=== PATIENT | male | born 1950 | race Caucasian/White ===

== ENCOUNTER 2019-12-28 09:20 | Outpatient (CLI) | payer MEDICARE, SELFPAY ==
--- NOTE | ~2019-12-28 | XR_ITS ---
XR abdomen obstructive series 12/28/2019 09:46 Indication: Upper abdominal distention. Procedure: Supine and upright views of abdomen Comparison: No prior studies for comparison. Findings: Bowel gas pattern is nonobstructive. Moderate colonic fecal loading. There is an aortic end oluminal stent. There is an aortic aneurysm. Lung bases unremarkable. There are cholecystectomy clips . Impression: 1: Nonobstructive bowel gas pattern. Reviewed, dictated and finalized at location A. Impression: 1: Nonobstructive bowel gas pattern.
== END 2019-12-28 09:21 | disposition home or self-care (01) ==
PROVIDERS: PCP Family Medicine Adolescent Medicine; Visit Provider Family Medicine Adolescent Medicine
DX: K56.0 Paralytic ileus (principal)
CPT/HCPCS: 74019

== ENCOUNTER 2020-02-09 08:35 | Outpatient (CLI) | payer MEDICARE, SELFPAY ==
--- NOTE | ~2020-02-09 | CT_ITS ---
EXAMINATION: CTA abdomen pelvis DATE: 02/09/2020 10:17 INDICATION: Abdominal aortic aneurysm status post repair. TECHNIQUE: Computed tomographic angiography (CTA) of the abdomen and pelvis was performed without and with 100 mL Omnipaque-350 intravenous contrast. Automated exposure control and iterative reconstruct ion technique were employed. The dose-length product was 2363.66 mGy-cm. Maximum intensity projection 3D-reconstructions of the aorta and other arteries were constructed by the technologist on a [employer] workstation. COMPARISON: CT abdomen and pelvis 12/17/2018 FINDINGS: The visualized portions of the lung bases demonstrate mild atelectasis. No pleural effusion . The heart size is normal. There are coronary artery calcifications. No pericardial effusion. The li mesha is normal. There are changes of cholecystectomy. The spleen, pancreas, and adrenal glands are nor mal. There is mild atrophy of the kidneys, worst at the lower poles. There are cysts in the kidneys m easuring up to 1.6 cm on the left. There is a 7.4 x 6.8 cm fusiform infrarenal aortic aneurysm with s tent graft in expected position. There are small areas of contrast enhancement in the aneurysm sac on delayed phase images, likely from the lumbar arteries. There is mild stenosis of celiac axis second gray to median arcuate ligament compression. There is no significant stenosis of the superior mesenter ic artery or renal arteries. There is coil embolization of inferior mesenteric artery. 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 There is diverticulosis of the colon without evidence of diverticulitis. There are no dilated loops of bowel. There are bilateral inguinal hernia s containing fat. There are no pathologically enlarged lymph nodes. There is no free intraperitoneal fluid. IMPRESSION: 1. 7.4 cm fusiform infrarenal aortic aneurysm, stable in size with type II endoleak. Reviewed, dictated and finalized at location A. IMPRESSION: 1. 7.4 cm fusiform infrarenal aortic aneurysm, stable in size with type II endo leak.
[2020-02-09 09:51] LABS: Estimated Glomerular Filt Rate > 60
== END 2020-02-09 08:36 | disposition home or self-care (01) ==
LOC: ANHIMG 08:45
PROVIDERS: PCP Family Medicine Adolescent Medicine
DX: I71.4 Abdominal aortic aneurysm, without rupture (principal)
CPT/HCPCS: 36415; 74174; Q9967

== ENCOUNTER 2020-04-25 11:49 | Outpatient (CLI) | payer MEDICARE, SELFPAY ==
[2020-04-25 12:42] LABS: Alanine Aminotransferase 24 U/L (4-50); Albumin Level 4.4 g/dL (3.5-5.1); Alkaline Phosphatase 68 U/L (38-126); Anion Gap 9 mmol/L (8-16); Aspartate Amino Transferase 26 U/L (17-59); Bilirubin,Total 0.2 mg/dL (0.2-1.3); Blood Urea Nitrogen 19 mg/dL (9-20); CRP 0.5 mg/dL (<1.0); Calcium 9.7 mg/dL (8.4-10.2); Carbon Dioxide 25 mmol/L (22-30); Chloride 101 mmol/L (98-107); Cholesterol 274 mg/dL (0-200); Creatine Kinase 103 U/L (55-170); Estimated Glomerular Filt Rate > 60; Glucose 116 mg/dL (75-110); HDL Direct 38 mg/dL; Potassium 4.6 mmol/L (3.4-5.0); Sodium 135 mmol/L (137-145); Triglycerides 371 mg/dL (<150)
[2020-04-25 12:51] LABS: LDL Cholesterol Direct 172 mg/dL
[2020-04-25 13:09] LABS: Prostate Specific Antigen 3.6 ng/mL (< OR = 4.0)
[2020-04-25 13:10] LABS: Erythrocyte Sedimentation Rate 28 mm/hr (0-20)
== END 2020-04-25 11:50 | disposition home or self-care (01) ==
PROVIDERS: PCP Family Medicine Adolescent Medicine; Visit Provider Family Medicine Adolescent Medicine
DX: E78.00 Pure hypercholesterolemia, unspecified (principal); E11.42 Type 2 diabetes mellitus with diabetic polyneuropathy; I10 Essential (primary) hypertension; M79.10 Myalgia, unspecified site; Z12.5 Encounter for screening for malignant neoplasm of prostate
CPT/HCPCS: 36415; 80053; 80061; 82550; 83036; 84153; 85652; 86140; G0103

== ENCOUNTER 2020-06-29 12:04 | Outpatient (CLI) | payer MEDICARE, SELFPAY ==
[2020-06-29 12:53] LABS: Hematocrit 39.5 % (42.0-52.0); Hemoglobin 12.9 g/dL (14.0-18.0); Mean Corpuscular HGB Conc 32.7 g/dl (32-36); Mean Corpuscular Volume 91.9 fl (80-100); Mean Platelet Volume 10.5 fl (7.4-10.4); Platelet Count Result 244 k/mm3 (150-375); Red Cell Distribution Width 14.1 % (11.5-14.5); White Blood Count 6.2 K/mm3 (4.5-10.0)
== END 2020-06-29 12:05 | disposition home or self-care (01) ==
LOC: ANHLAB 12:07
PROVIDERS: PCP Family Medicine Adolescent Medicine; Visit Provider Physician Assistant
DX: K92.1 Melena (principal)
CPT/HCPCS: 36415; 85027

== ENCOUNTER 2020-07-24 06:55 | Outpatient (CLI) | payer MEDICARE, SELFPAY ==
[2020-07-24 07:32] LABS: Cholesterol 201 mg/dL (0-200); HDL Direct 38 mg/dL; Triglycerides 357 mg/dL (<150)
[2020-07-24 07:43] LABS: LDL Cholesterol Direct 121 mg/dL
== END 2020-07-24 06:56 | disposition home or self-care (01) ==
PROVIDERS: PCP Family Medicine Adolescent Medicine; Visit Provider Internal Medicine Cardiovascular Disease
DX: E78.5 Hyperlipidemia, unspecified (principal)
CPT/HCPCS: 36415; 80061

== ENCOUNTER 2020-08-15 08:18 | Outpatient (CLI) | payer MEDICARE, SELFPAY ==
--- NOTE | ~2020-08-15 | CT_ITS ---
EXAMINATION: CTA abdomen pelvis DATE: 08/15/2020 08:59 INDICATION: Abdominal aortic aneurysm without rupture TECHNIQUE: Computed tomographic angiography (CTA) of the abdomen and pelvis was performed without and with 100 mL Omnipaque-350 intravenous contrast. Additional 3D reconstructions utilizing rotating max imum intensity projection (MIP) were performed. Automated exposure control and iterative reconstructi on technique were employed. The dose-length product was 1703.83 mGy-cm. COMPARISON: 02/09/2020 FINDINGS: No interval change since 12/09/2017 in a few likely benign 5 mm smaller pulmonary nodules in the bilat eral lower lobes. Heart size is normal. Atherosclerotic coronary artery calcification. No pericardial or pleural effusion. Diffuse hepatic steatosis. Cholecystectomy clips at the gallbladder fossa. Sple en, pancreas, bilateral adrenal glands are normal. 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 Bilateral renal cysts the largest on the left measuring up to 1.5 cm. There is also a 10 mm hyperdense proteinaceous/hemorrhagic cyst in the left kidney. 1 mm nonobstructing right renal stone. No significant interval change in a fusiform infrarenal abdominal aortic aneurysm measuring up to 7.3 x 6.8 cm with unchanged endoluminal stent graft beginning at the level of the bilateral main renal a rteries and extending to the bilateral common iliac arteries. No endoleak identified during arterial phase. Delayed images were not obtained. Again seen is mild stenosis at the origin of the celiac axis secondary to mild atherosclerotic calcification and median arcuate ligament compression. The superio r mesenteric artery is patent. Embolization coils are seen in the at the origin of the inferior mesen teric artery which is patent and opacified with contrast distal to the embolization coils likely due to collateral resupply. Unchanged small saccular aneurysm at the bifurcation of the left common iliac artery located distal to the stent. Normal appendix. There is moderate colonic diverticulosis with a sigmoid predominance. There is no a djacent inflammatory change to suggest diverticulitis. No bowel obstruction. Bladder is normal. Small bilateral fat-containing inguinal hernias. No pathologically enlarged abdominal or pelvic lymphadeno annamarie. No free intraperitoneal gas or fluid. Severe lower lumbar spondylosis. IMPRESSION: 1. No interval change in a 7.3 cm stented fusiform infrarenal abdominal aortic aneurysm. 2. Stable small saccular aneurysm of the left common iliac artery. 3. Nonobstructing 1 mm right renal stone. 4. Diverticulosis. 5. Small fat-containing bilateral inguinal hernias. Reviewed, dictated and finalized at location B. EKEEPER
[2020-08-15 11:24] LABS: Estimated Glomerular Filt Rate > 60
== END 2020-08-15 08:19 | disposition home or self-care (01) ==
PROVIDERS: PCP Family Medicine Adolescent Medicine
DX: I71.4 Abdominal aortic aneurysm, without rupture (principal); T82.3 Mechanical complication of other vascular grafts; N20.0 Calculus of kidney; K57.90 Diverticulosis of intestine, part unspecified, without perforation or abscess without bleeding; K40.20 Bilateral inguinal hernia, without obstruction or gangrene, not specified as recurrent
CPT/HCPCS: 74174; Q9967

== ENCOUNTER 2020-11-07 07:01 | Outpatient (CLI) | payer MEDICARE, SELFPAY ==
[2020-11-07 08:00] LABS: Cholesterol 296 mg/dL (0-200); HDL Direct 37 mg/dL; Triglycerides 445 mg/dL (<150)
[2020-11-07 08:12] LABS: LDL Cholesterol Direct 165 mg/dL
[2020-11-07 12:05] LABS: Creatinine Urine 314.6 mg/dL
[2020-11-07 12:19] LABS: MALB Creatinine Ratio 123.3 mg/g (0-30)
== END 2020-11-07 07:02 | disposition home or self-care (01) ==
PROVIDERS: PCP Family Medicine Adolescent Medicine; Visit Provider Internal Medicine Cardiovascular Disease
DX: E11.69 Type 2 diabetes mellitus with other specified complication (principal); E78.5 Hyperlipidemia, unspecified
CPT/HCPCS: 36415; 80061; 82043

== ENCOUNTER 2021-02-26 08:42 | Outpatient (CLI) | payer MEDICARE, SELFPAY ==
--- NOTE | ~2021-02-26 | XR_ITS ---
EXAMINATION: XR foot LT min 3V DATE: 02/26/2021 09:10 INDICATION: Pain at the left first metatarsophalangeal joint TECHNIQUE: Dorsoplantar, two oblique and lateral views of the left foot were obtained. COMPARISON: None. FINDINGS: Alignment is normal. No fracture. Mild osteoarthritis at the first metatarsophalangeal joint and at s everal predominantly distal interphalangeal joints. Focal cortical irregularity at the lateral tubero sity at the base of the fifth metatarsal which could represent a small chronic erosion with corticate d margins and overhanging edges as could be seen with gout. Alternatively this could represent sequel a of old trauma or surgery. Small plantar calcaneal spur. Soft tissues are unremarkable. IMPRESSION: 1. Mild osteoarthritis at the first metatarsophalangeal and several predominantly distal interphalang eal joints. 2. Focal cortical irregularity to the lateral tuberosity at the fifth metatarsal. Differential would include small erosion such as in the setting of gout or sequela of prior trauma or surgery. Reviewed, dictated and finalized at location A. IMPRESSION: 1. Mild osteoarthritis at the first metatarsophalangeal and several predominant ly distal interphalangeal joints. 2. Focal cortical irregularity to the lateral tuberosity at the fifth metatarsa l. Differential would include small erosion such as in the setting of gout or s equela of prior trauma or surgery.
== END 2021-02-26 08:43 | disposition home or self-care (01) ==
PROVIDERS: PCP Family Medicine Adolescent Medicine; Visit Provider Physician Assistant
DX: M79.675 Pain in left toe(s) (principal); M19.072 Primary osteoarthritis, left ankle and foot
CPT/HCPCS: 73630

== ENCOUNTER 2021-04-04 01:21 | Day surgery (SDC) | payer MEDICARE, SELFPAY ==
[2021-03-21 15:29] VITALS: BMI 27.1
[2021-04-04 07:50] VITALS: BP 139/75; PULSE 57; RESP 16; TEMP 36.1; O2SAT 100; BMI 25.8
--- NOTE | 2021-04-04 08:00 | PM.HPGS ---
History of Present Illness History of Present Illness Consent: Risks, benefits, and alternatives have been discussed and questions answered. Patient agrees to proceed with procedure. Chief complaint: melena, diarrhea Narrative: Zeke Elizondo is a 70 year old male with chronic diarrhea. Also he has had black stools lately. He does take diclofenac and aspirin Review of Systems Review of Systems: All systems reviewed & are unremarkable except as noted in HPI and below PMFSH Past Medical History Medical History AAA (abdominal aortic aneurysm) Angiokeratoma of scalp Arthritis Back pain Hearing loss Hyperlipidemia, unspecified Hypertension Sinus abscess Type 2 diabetes mellitus with hyperglycemia, without long-term current use of insulin Surgical History Surgical History H/O abdominal aortic aneurysm repair (~10/05/12) History of cholecystectomy (~03/02/18) History of cholecystectomy History of meniscectomy of left knee (~08/20/17) History of total knee replacement (TKR) History of total left knee replacement (~10/07/18) Presence of left artificial knee joint (~06/17/14) Family History Family History Mother Diabetes mellitus Family history of cardiovascular disease Hypertension Parkinsonian syndrome Other Cancer Cerebrovascular accident Depression Obesity Psychiatric disorder SOB (shortness of breath) Social History Social History Smoking packs per day: 1.5 Smoking cigarettes per day: 30.0 Years smoked: 30 Smoking pack-years: 45.00 Smoking status: Former smoker Tobacco type: cigarettes Smoking end date: 09/01/98 Alcohol intake: never Substance use: never Substance use type: does not use Living arrangements: with family Spiritual care concerns: No Meds Home Medications and Allergies Home Medications Medication Instructions Recorded Confirmed Type allopurinol 300 mg tablet 300 mg PO DAILY 10/06/19 04/04/21 History amlodipine 10 mg tablet 10 mg PO DAILY 10/06/19 04/04/21 History aspirin 81 mg tablet,delayed 81 mg PO DAILY 10/06/19 04/04/21 History release diclofenac sodium 75 mg 75 mg PO BID 10/06/19 04/04/21 History tablet,delayed release indapamide 2.5 mg tablet 2.5 mg PO DAILY 10/06/19 04/04/21 History omeprazole 20 mg capsule,delayed 20 mg PO DAILY 10/06/19 04/04/21 History release sildenafil 100 mg tablet 100 mg PO DAILY PRN 10/06/19 04/04/21 History lisinopril 20 mg tablet 20 mg PO BID tablet 11/30/19 04/04/21 History nitroglycerin 0.4 mg sublingual 0.4 mg SUBLINGUAL Q5M PRN 03/30/20 04/04/21 History tablet cetirizine 10 mg capsule 10 mg PO DAILY cap 05/10/20 04/04/21 History guaifenesin 400 mg tablet 400 mg PO BID PRN 05/10/20 04/04/21 History evolocumab 140 mg/mL subcutaneous 140 mg SUBCUT [id number] 01/15/21 04/04/21 History pen injector glimepiride 2 mg tablet 2 mg PO BID 90 Days #180 tablet 02/02/21 04/04/21 Rx metformin 1,000 mg tablet See Rx Instructions .ROUTE 02/12/21 04/04/21 Rx .COMPLEX #180 tablet hydralazine 25 mg PO TID 03/21/21 04/04/21 History melatonin 5 mg PO HS 03/21/21 04/04/21 History multivitamin [One A Day] 1 tablet PO DAILY 03/21/21 04/04/21 History Allergies Allergy/AdvReac Type Severity Reaction Status Date / Time Bszcifk-Tni-Vgx Reductase Allergy Intermediate Cramping Verified 04/04/21 07:48 Inhibitor of the Muscles Vital Signs Vital Signs - 24 hr 04/04/21 07:50 Temperature 36.1 C L Pulse Rate 57 L Respiratory Rate 16 Blood Pressure 139/75 Pulse Oximetry 100 Exam Resp: Auscultation: clear to auscultation bilaterally Cardio: Rate: regular rate Rhythm: regular rhythm GI: GI Palp: Yes Soft to palpation and No Tenderness to palpation present (GI) Assessment and Plan
[2021-04-04 08:01] LABS: Glucose Point of Care 162 mg/dl (65-105)
[2021-04-04] MEDS: LACTATED RINGERS 1,000 ML 150 ML IV CONT (08:06)
--- NOTE | 2021-04-04 08:09 | WPDANESEPPF ---
Anes - Initial Pre Proc Eval Procedure: Operation Date: 04/04/21 08:30 Proposed Procedures p Esophagogastroduodenoscopy & Colonoscopy - Luan Rausch MD Date/Time: 04/04/21 08:09 Surgeon: Luan Rausch MD Pre Op Diagnosis: melena, diarrhea Patient Data Age: 70 Gender: M Height: 1.83 m Weight: 86.5 kg Last Vital Signs Temp 36.1 C L 04/04/21 07:50 Pulse 57 L 04/04/21 07:50 Resp 16 04/04/21 07:50 BP 139/75 04/04/21 07:50 Pulse Ox 100 04/04/21 07:50 Allergies Allergy/AdvReac Type Severity Reaction Status Date / Time [id number]-[id number]-Idd Reductase Allergy Intermediate Cramping Verified 04/04/21 07:48 Inhibitor of the Muscles Home Medications Medication Instructions Recorded Confirmed Type allopurinol 300 mg tablet 300 mg PO DAILY 10/06/19 04/04/21 History amlodipine 10 mg tablet 10 mg PO DAILY 10/06/19 04/04/21 History aspirin 81 mg tablet,delayed 81 mg PO DAILY 10/06/19 04/04/21 History release diclofenac sodium 75 mg 75 mg PO BID 10/06/19 04/04/21 History tablet,delayed release indapamide 2.5 mg tablet 2.5 mg PO DAILY 10/06/19 04/04/21 History omeprazole 20 mg capsule,delayed 20 mg PO DAILY 10/06/19 04/04/21 History release sildenafil 100 mg tablet 100 mg PO DAILY PRN 10/06/19 04/04/21 History lisinopril 20 mg tablet 20 mg PO BID tablet 11/30/19 04/04/21 History nitroglycerin 0.4 mg sublingual 0.4 mg SUBLINGUAL Q5M PRN 03/30/20 04/04/21 History tablet cetirizine 10 mg capsule 10 mg PO DAILY cap 05/10/20 04/04/21 History guaifenesin 400 mg tablet 400 mg PO BID PRN 05/10/20 04/04/21 History evolocumab 140 mg/mL subcutaneous 140 mg SUBCUT [id number] 01/15/21 04/04/21 History pen injector glimepiride 2 mg tablet 2 mg PO BID 90 Days #180 tablet 02/02/21 04/04/21 Rx metformin 1,000 mg tablet See Rx Instructions .ROUTE 02/12/21 04/04/21 Rx .COMPLEX #180 tablet hydralazine 25 mg PO TID 03/21/21 04/04/21 History melatonin 5 mg PO HS 03/21/21 04/04/21 History multivitamin [One A Day] 1 tablet PO DAILY 03/21/21 04/04/21 History Laboratory Tests 04/04/21 07:56 POC Capillary Glucose 162 mg/dl H mg/dl (65-105) Patient hx anesthesia problems: none Family hx anesthesia problems: none [facility] Past Medical History Medical History AAA (abdominal aortic aneurysm) Angiokeratoma of scalp Arthritis Back pain Hearing loss Hyperlipidemia, unspecified Hypertension Sinus abscess Type 2 diabetes mellitus with hyperglycemia, without long-term current use of insulin Surgical History Surgical History H/O abdominal aortic aneurysm repair (~10/05/12) History of cholecystectomy (~03/02/18) History of cholecystectomy History of meniscectomy of left knee (~08/20/17) History of total knee replacement (TKR) History of total left knee replacement (~10/07/18) Presence of left artificial knee joint (~06/17/14) Family History Family History Mother Diabetes mellitus Family history of cardiovascular disease Hypertension Parkinsonian syndrome Other Cancer Cerebrovascular accident Depression Obesity Psychiatric disorder SOB (shortness of breath) Social History Social History Smoking packs per day: 1.5 Smoking cigarettes per day: 30.0 Years smoked: 30 Smoking pack-years: 45.00 Smoking status: Former smoker Tobacco type: cigarettes Smoking end date: 09/01/98 Alcohol intake: never Substance use: never Substance use type: does not use Living arrangements: with family Spiritual care concerns: No Anes - Eval Final PreProcedure Day of Procedure 04/04/21 08:09 Patient weight: normal Heart: regular rate and rhythm Lungs: clear to auscultation and normal air movement Airway: Mallampati scale class II Neurological: chicho
[2021-04-04] MEDS: BENZOCAINE (*SP) 60 ML SPRAY CAN (HURRICAINE) 1 SPRAY MUCOUS MEM (08:51)
[2021-04-04 09:15] VITALS: BP 118/59; PULSE 55; RESP 20; O2SAT 98
[2021-04-04 09:25] VITALS: BP 130/82; PULSE 60; RESP 18; O2SAT 99
[2021-04-04 09:35] VITALS: BP 134/80; PULSE 62; RESP 20; O2SAT 99
== END 2021-04-04 09:45 | disposition home or self-care (01) ==
PROVIDERS: PCP Family Medicine Adolescent Medicine; Visit Provider Internal Medicine Gastroenterology
PROC: 0DJ08ZZ Inspection of Upper Intestinal Tract, Via Natural or Artificial Opening Endoscopic (ICD-10-PCS; CPT 43235; principal; 2021-04-04 08:30)
DX: R19.7 Diarrhea, unspecified (principal); K92.1 Melena; K57.30 Diverticulosis of large intestine without perforation or abscess without bleeding; E78.5 Hyperlipidemia, unspecified; I10 Essential (primary) hypertension; E11.9 Type 2 diabetes mellitus without complications; Z87.891 Personal history of nicotine dependence; Z79.82 Long term (current) use of aspirin; Z79.84 Long term (current) use of oral hypoglycemic drugs
CPT/HCPCS: 45380; 82948; 87081; 88305; J2704; J7120

== ENCOUNTER 2021-05-23 14:30 | Outpatient (RCR) | payer MEDICARE, SELFPAY ==
[2021-03-27 12:41] VITALS: BMI 27.3
== END 2021-06-04 11:51 | disposition home or self-care (01) ==
LOC: ANHDMC 14:30
PROVIDERS: PCP Family Medicine Adolescent Medicine; Visit Provider Internal Medicine Endocrinology, Diabetes & Metabolism
DX: E11.65 Type 2 diabetes mellitus with hyperglycemia (principal); Z71.89 Other specified counseling
CPT/HCPCS: G0108; G0109

== ENCOUNTER 2021-06-01 06:59 | Outpatient (CLI) | payer MEDICARE, SELFPAY ==
[2021-06-01 07:53] LABS: Cholesterol 146 mg/dL (0-200); HDL Direct 45 mg/dL; Triglycerides 270 mg/dL (<150)
[2021-06-01 08:05] LABS: LDL Cholesterol Direct 58 mg/dL
== END 2021-06-01 07:00 | disposition home or self-care (01) ==
PROVIDERS: PCP Family Medicine Adolescent Medicine; Visit Provider Internal Medicine Cardiovascular Disease
DX: G72.0 Drug-induced myopathy (principal); T46.6X5A Adverse effect of antihyperlipidemic and antiarteriosclerotic drugs, initial encounter; E78.5 Hyperlipidemia, unspecified
CPT/HCPCS: 36415; 80061

== ENCOUNTER 2021-06-13 07:44 | Outpatient (CLI) | payer MEDICARE, SELFPAY ==
--- NOTE | 2021-06-25 15:42 | WPDSLEEPSTUD ---
Sleep Study Date of Study: 06/13/21 <Kailey Olivarez, DO - Last Filed: 06/25/21 16:14> Ordering Provider: July Darby, FURNACE OPERATOR <Kailey Olivarez DO - Last Filed: 06/25/21 16:14> Interpreting Physician: Kailey Olivarez DO <Kailey Olivarez DO - Last Filed: 06/25/21 16:14> Sleep Study Type: Polysomnogram <Kailey Olivarez DO - Last Filed: 06/25/21 16:14> Height: 1.83 m <Kailey Olivarez DO - Last Filed: 06/25/21 16:14> Weight: 90.718 kg <Kailey Olivarez DO - Last Filed: 06/25/21 16:14> Body Mass Index: 27.1 <Kailey Olivarez DO - Last Filed: 06/25/21 16:14> Neck Circumference (inches): 16 <Kailey Olivarez DO - Last Filed: 06/25/21 16:14> Richton: 6 <Kailey Olivarez DO - Last Filed: 06/25/21 16:14> Reason for Sleep Study Unrefreshing sleep, Excessive daytime sleepiness. <Kailey Olivarez DO - Last Filed: 06/25/21 16:14> Sleep History The patient is a 70-year-old male with hypertension, diabetes, hyperlipidemia, GERD and tobacco abuse that had a sleep study ordered by his weaving instructor for unrefreshing sleep and excessive daytime sleepiness. The patient states that for the past 5 years, can only sleep 2-3 hours at a time. The patient denies awakening from sleep short of breath. He rarely awakens at night with heartburn, belching or cough. He often snores but is really loud enough that others complain. He rarely has trouble sleeping when he has a cold. He denies suddenly waking up gasping for air throughout the night. He really has Prieb Lowell at night observed by others. He denies any heart palpitations throughout the night. He rarely falls asleep during the day and never while driving. He denies sleep paralysis and cataplexy. He rarely experiences vivid dreamlike scenes upon awakening or falling asleep. He rarely has nightmares. He often has thoughts racing through his mind. He rarely feels sad or depressed. He often has anxiety. He denies noticing parts of his body jerk. He often kicks throughout the night. He often experiences crawling and aching feelings in his legs as well as leg pain during the night. He will occasionally grind his teeth during sleep but never awakens with jaw pain in the morning. He is occasionally bothered by pain during the day and awakened by pain during the night. He occasionally wakes up feeling stiff in the morning with sore and achy muscles. The patient goes to bed at 9:30 p.m. on the weekdays and weekends. It takes him 10 minutes to fall asleep. He wakes up 2-3 times throughout the night to use the restroom and get a drink of water. It takes him about 30 minutes to fall asleep. He wakes up at 5:30 a.m. on the weekdays and weekends. He typically gets 5 hours of sleep per night. He will stay in bed for 30 minutes after waking. He currently lives with his . He does not consume any caffeinated beverages within 2 hours of bedtime. He does not engage in physical exercise before bedtime. He will watch television before falling asleep. He will not take any naps in the afternoon or the evening. The patient is a former smoker. He currently drinks 3 coffees and 3 sodas per day. He denies alcohol and recreational drug use. <Kailey Olivarez DO - Last Filed: 06/25/21 16:14> [facility] Past Medical History Medical History: Medical History AAA (abdominal aortic aneurysm) Angiokeratoma of scalp Arthritis Back pain Hearing loss Hyperlipidemia, unspecified Hypertension Sinus abscess Type 2 diabetes mellitus with hyperglycemia, without long-term current use of insulin <Kailey Olivarez DO - Last Filed: 06/25/21 16:14> Surgical History Surgical History: Surgical History H/O abdominal aortic aneurysm repair (~10/05/12) History of cholecystectomy (~
[2021-06-25 16:14] VITALS: BMI 27.1
== END 2021-06-14 06:43 | disposition home or self-care (01) ==
LOC: ANHCSM 07:46
PROVIDERS: PCP Family Medicine Adolescent Medicine; Visit Provider Nurse Practitioner Adult Health
DX: G47.10 Hypersomnia, unspecified (principal); G47.9 Sleep disorder, unspecified; I27.20 Pulmonary hypertension, unspecified; G25.81 Restless legs syndrome
CPT/HCPCS: 95810

== ENCOUNTER 2021-07-12 11:03 | Outpatient (CLI) | payer MEDICARE, SELFPAY ==
[2021-07-12 11:58] LABS: Hematocrit 44.9 % (42.0-52.0); Hemoglobin 14.4 g/dL (14.0-18.0); Mean Corpuscular HGB Conc 32.1 g/dl (32-36); Mean Corpuscular Hemoglobin 29.6 pg (26-34); Mean Corpuscular Volume 92.4 fl (80-100); Mean Platelet Volume 10.7 fl (7.4-10.4); Platelet Count Result 231 k/mm3 (150-375); Red Blood Count 4.86 M/mm3 (4.6-6.20); Red Cell Distribution Width 13.7 % (11.5-14.5); White Blood Count 6.9 K/mm3 (4.5-10.0)
== END 2021-07-12 11:04 | disposition home or self-care (01) ==
LOC: ANHLAB 11:24
PROVIDERS: PCP Family Medicine Adolescent Medicine; Visit Provider Family Medicine Adolescent Medicine
DX: G25.81 Restless legs syndrome (principal)
CPT/HCPCS: 36415; 85027

== ENCOUNTER 2021-08-02 10:14 | Outpatient (RCR) | payer MEDICARE, SELFPAY | END 2021-08-02 16:14 | disposition home or self-care (01) | LOC: ANHDMC 10:14 | PROVIDERS: PCP Family Medicine Adolescent Medicine; Visit Provider Internal Medicine Endocrinology, Diabetes & Metabolism | DX: E11.65 Type 2 diabetes mellitus with hyperglycemia (principal); Z71.89 Other specified counseling | CPT/HCPCS: G0108 ==

== ENCOUNTER 2021-08-16 10:08 | Outpatient (CLI) | payer MEDICARE, SELFPAY ==
--- NOTE | ~2021-08-16 | CT_ITS ---
EXAMINATION: CTA abdomen pelvis EXAM DATE: 08/16/2021 10:39 INDICATION: Abdominal aortic aneurysm repair. TECHNIQUE: Spiral CT of the abdomen and pelvis was performed without and then with intravenous inject ion of 100 mL Omnipaque 350. Axial, coronal and sagittal images of the abdomen and pelvis were revi ewed. The dose-length product (DLP) for this examination was 1388.13 mGy-cm. The exposure was tailo red according to patient size (auto mA exposure control), and iterative reconstruction (ASIR) was use d as additional dose reduction technique. Comparison is made to prior examination from 08/15/2020. FINDINGS: There is abdominal aortobiiliac endograft treating aneurysm measuring 7.2 x 6.7 cm (previou s dimensions 7.3 x 6.7 cm). There is no CT evidence of endoleak on this arterial phase scan. Left com mon iliac saccular aneurysm distal to the graft measuring 1.9 cm, also stable. The liver, spleen, adr enal glands and pancreas are unremarkable. There are cholecystectomy clips. Kidneys enhance symmetr ically. No hydronephrosis. Regions of renal cortical scarring likely from infarctions at the lower po les of both kidneys unchanged. The prostate is unremarkable. The bladder is unremarkable. There is no retroperitoneal or pelvic lymphadenopathy. Small to moderate left inguinal, small right inguina l fat-containing hernias. Tiny supraumbilical fat-containing hernia. The appendix is normal. There is mild to moderate sigmoid colonic diverticulosis. There is no adjace nt inflammatory change to suggest diverticulitis. The stomach and small bowel are unremarkable. Ther e is expected amount of colonic stool. No free intraperitoneal gas. The heart is normal in size. There are no pericardial or pleural effusions. The lung bases are unremarkable. There are no osteo blastic or osteolytic lesions identified. IMPRESSION: 1. Stable treated abdominal aortic aneurysm. 2. Stable left common iliac artery aneurysm. 3. Fat-containing hernias. 4. Renal cortical scarring. 5. Colonic diverticulosis. Reviewed, dictated and finalized at location B. [employer]
== END 2021-08-16 10:09 | disposition home or self-care (01) ==
LOC: ANHIMG 10:11
PROVIDERS: PCP Family Medicine Adolescent Medicine
DX: I71.4 Abdominal aortic aneurysm, without rupture (principal); I72.3 Aneurysm of iliac artery; K57.90 Diverticulosis of intestine, part unspecified, without perforation or abscess without bleeding
CPT/HCPCS: 74174; Q9967

== ENCOUNTER 2021-10-11 10:27 | Outpatient (CLI) | payer MEDICARE, SELFPAY ==
[2021-10-11 12:33] LABS: Anion Gap 11 mmol/L (8-16); Blood Urea Nitrogen 22 mg/dL (9-20); Calcium 10.2 mg/dL (8.4-10.2); Carbon Dioxide 26 mmol/L (22-30); Chloride 96 mmol/L (98-107); Estimated Glomerular Filt Rate > 60; Glucose 162 mg/dL (65-110); HDL Direct 52 mg/dL; Potassium 4.6 mmol/L (3.4-5.0); Sodium 133 mmol/L (137-145)
[2021-10-11 12:44] LABS: LDL Cholesterol Direct 56 mg/dL
[2021-10-11 13:30] LABS: Creatinine Urine 296.9 mg/dL
[2021-10-11 14:52] LABS: Microalbumin Urine Random > 1140.0 mg/L (0-16.7)
== END 2021-10-11 10:28 | disposition home or self-care (01) ==
LOC: ANHWCLAB 10:30
PROVIDERS: PCP Family Medicine Adolescent Medicine; Visit Provider Internal Medicine Endocrinology, Diabetes & Metabolism
DX: E11.9 Type 2 diabetes mellitus without complications (principal); E11.29 Type 2 diabetes mellitus with other diabetic kidney complication; E78.5 Hyperlipidemia, unspecified; R80.9 Proteinuria, unspecified
CPT/HCPCS: 36415; 80048; 82043; 82607; 83718; 83721; 84443

== ENCOUNTER → 2022-07-17 08:57 | Outpatient (CLI) | payer MEDICARE, SELFPAY ==
--- NOTE | ~2022-07-17 | US_ITS ---
US abdomen limited DATE: 07/17/2022 09:18 INDICATION: Cirrhosis TECHNIQUE: Real-time imaging of liver, pancreas, gallbladder fossa COMPARISON: 08/16/2021 CTA abdomen pelvis 08/15/2020 CTA abdomen pelvis FINDINGS: Normal hepatopedal portal venous flow direction. No hepatic space-occupying mass lesion is evident. Mild hepatic surface nodularity is suggested which may indicate cirrhosis. No pancreatic mass lesion. The gallbladder is surgically absent. The common bile duct measures 9.5 mm, relatively stable compared to 08/15/2020 CT abdomen pelvis exam ination. IMPRESSION: Suggestion of mild hepatic surface nodularity, which suggests possible cirrhosis Status post cholecystectomy Reviewed, dictated and finalized at Location A. Reviewed, dictated and finalized at location A. 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
== END ==
PROVIDERS: PCP Student in an Organized Health Care Education/Training Program; Visit Provider Student in an Organized Health Care Education/Training Program
DX: K74.60 Unspecified cirrhosis of liver (principal); Z90.49 Acquired absence of other specified parts of digestive tract
CPT/HCPCS: 76705

== ENCOUNTER 2022-08-08 06:46 | Outpatient (CLI) | payer MEDICARE, SELFPAY ==
[2022-08-08 08:08] LABS: Cholesterol 173 mg/dL (0-200); HDL Direct 42 mg/dL; Triglycerides 384 mg/dL (<150)
[2022-08-08 08:19] LABS: LDL Cholesterol Direct 67 mg/dL
== END 2022-08-08 06:47 | disposition home or self-care (01) ==
LOC: ANHLAB 06:50
PROVIDERS: PCP Student in an Organized Health Care Education/Training Program; Visit Provider Internal Medicine Cardiovascular Disease
DX: E78.5 Hyperlipidemia, unspecified (principal)
CPT/HCPCS: 36415; 80061

== ENCOUNTER 2022-08-09 11:26 | Outpatient (CLI) | payer MEDICARE, SELFPAY ==
[2022-08-09 12:32] LABS: Hematocrit 42.2 % (42.0-52.0); Hemoglobin 13.9 g/dL (14.0-18.0); Mean Corpuscular HGB Conc 32.9 g/dl (32-36); Mean Corpuscular Hemoglobin 29.8 pg (26-34); Mean Corpuscular Volume 90.4 fl (80-100); Mean Platelet Volume 10.6 fl (7.4-10.4); Platelet Count Result 239 k/mm3 (150-375); Red Blood Count 4.67 M/mm3 (4.6-6.20); Red Cell Distribution Width 14.1 % (11.5-14.5); White Blood Count 6.4 K/mm3 (4.5-10.0)
[2022-08-09 12:40] LABS: Prothrombin Time 12.6 Seconds (11.1-14.7)
[2022-08-09 12:42] LABS: Alanine Aminotransferase 26 U/L (6-50); Albumin Level 4.9 g/dL (3.5-5.1); Alkaline Phosphatase 71 U/L (38-126); Anion Gap 9 mmol/L (8-16); Aspartate Amino Transferase 30 U/L (17-59); Bilirubin,Total 0.3 mg/dL (0.2-1.3); Blood Urea Nitrogen 27 mg/dL (9-20); Calcium 9.6 mg/dL (8.4-10.2); Carbon Dioxide 27 mmol/L (22-30); Chloride 99 mmol/L (98-107); Estimated Glomerular Filt Rate > 60; Glucose 125 mg/dL (65-110); Potassium 4.7 mmol/L (3.4-5.0); Sodium 135 mmol/L (137-145)
[2022-08-09 13:28] LABS: Iron 114 ug/dL (49-181)
[2022-08-09 13:40] LABS: Percent Iron Saturation 34 % (20-50)
[2022-08-09 13:52] LABS: Hepatitis B Surface Antigen Negative (Negative)
[2022-08-09 13:58] LABS: HAV RESULT Negative (Negative); Hepatitis B Core IgM Result Negative (Negative)
[2022-08-09 14:09] LABS: Hepatitis B Surface Anti Res Negative
[2022-08-09 14:14] LABS: Hepatitis C Virus Antibody Reactive (Negative)
[2022-08-13 12:39] LABS: Mitochondrial (M2) Ab (IgG) <=20.0 U (<=20.0)
[2022-08-13 17:23] LABS: Hepatitis C RNA, Quant PCR <15 IU/mL
[2022-08-13 22:14] LABS: Actin Antibody (IgG) <20 U (<20)
[2022-08-14 09:04] LABS: LKM 1 Antibody <=20.0 U (<=20.0)
[2022-08-14 13:26] LABS: Ceruloplasmin 17 mg/dL (18-36)
[2022-08-14 19:29] LABS: Hepatitis A Antibody Total Nonreactive (Nonreactive)
[2022-08-15 18:58] LABS: Alpha Fetoprotein Tumor Marker 1.9 ng/mL (<6.1)
[2022-08-20 10:27] LABS: ALT 19 U/L (9-46); Alpha-2-Macroglobulin 385 mg/dL (106-279); Apolipoprotein A1 151 mg/dL (94-176); Fibrosis Score 0.49; Fibrosis Stage F2; GGT 27 U/L (3-70); Haptoglobin 232 mg/dL (43-212); Necroinflammat Act Grade A0; Total Bilirubin 0.4 mg/dL (0.2-1.2)
== END 2022-08-09 11:27 | disposition home or self-care (01) ==
PROVIDERS: PCP Student in an Organized Health Care Education/Training Program; Visit Provider Nurse Practitioner
DX: E11.65 Type 2 diabetes mellitus with hyperglycemia (principal); Z96.652 Presence of left artificial knee joint; K74.60 Unspecified cirrhosis of liver
CPT/HCPCS: 36415; 80048; 80074; 80076; 81596; 82105; 82390; 82728; 83516; 83520; 83540; 83550; 85027; 85610; 86038; 86039; 86376; 86706; 86708; 87522

== ENCOUNTER 2022-08-23 07:27 | Outpatient (CLI) | payer MEDICARE, OTHER, SELFPAY ==
--- NOTE | ~2022-08-23 | CT_ITS ---
EXAMINATION: CTA abdomen pelvis DATE: 08/23/2022 07:59 INDICATION: Abdominal aortic aneurysm without rupture TECHNIQUE: Computed tomographic angiography (CTA) of the abdomen and pelvis was performed without and with 100 mL Omnipaque-350 intravenous contrast. Additional 3D reconstructions utilizing rotating max imum intensity projection (MIP) were performed. Automated exposure control and iterative reconstructi on technique were employed. The dose-length product was 2483.99 mGy-cm. COMPARISON: 08/16/2021 and 08/15/2020 FINDINGS: No interval change since 08/15/2020 in a a few <5 mm pulmonary nodules in the bilateral low er lobes consistent with old granulomatous disease. Heart size is normal. Atherosclerotic coronary ar ky calcification. No pericardial or pleural effusion. Cholecystectomy clips the gallbladder fossa. Liver, spleen, pancreas and bilateral adrenal glands are normal. Cortical scarring at the lower poles of both kidneys each of which appears to have been supplied via a now thrombosed small accessory kt al arteries. Bilateral renal cysts, the majority low-attenuation with the largest measuring 1.3 cm th e right kidney and a few high attenuation proteinaceous/hemorrhagic cysts the largest in the left kid erin measuring 11 mm.. 1-2 mm parenchymal stone in the lower pole of the right kidney. There is modera te colonic diverticulosis with a sigmoid predominance. There is no adjacent inflammatory change to s uggest diverticulitis. Pelvic floor relaxation with the distal rectum descending below the level of t he pubococcygeal line. Small bowel and appendix are normal. Small supraumbilical fat-containing ventr al hernia. Small bilateral fat-containing inguinal hernias. Bladder is normal. No free intraperitonea l gas or fluid. No pathologically enlarged abdominal or pelvic lymphadenopathy. Severe lower lumbar s pondylosis. Again seen is aortobiiliac stent grafting of a fusiform infrarenal abdominal aortic aneurysm. The gra ft begins between the level of the celiac axis and the bilateral renal arteries. Slight interval decr ease in size of the aneurysm sac which previously measured 7.3 x 6.8 cm and now measures 7.0 x 6.4 cm in maximal diameter measured orthogonal to the axis of flow on the coronal and sagittal images respe ctively. On the delayed images, there is subtle 2 x 1 cm region with faint blush of contrast within t he right posterior margin of the aneurysm sac suggesting a type II endoleak arising from a lumbar art arnav. Again seen is mild stenosis at the origin of the celiac axis secondary to mild atherosclerotic d esiccation and median arcuate ligament compression. The superior mesenteric artery is patent. Emboliz ation coils are seen in the at the origin of the inferior mesenteric artery which is patent and opaci fied with contrast distal to the embolization coils likely due to collateral resupply. Minimal athero sclerotic plaque along the dominant bilateral renal arteries without hemodynamically significant sten osis. Unchanged small saccular aneurysm at the bifurcation of the left common iliac artery located di stal to the stent. IMPRESSION: 1. Stented infrarenal abdominal aortic aneurysm with decrease in diameter of the aneurysm from 7.3 x 6.8 to currently 7.0 x 6.4 cm despite the presence of a subtle type II endoleak on delayed images. 2. 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 3. Nonobstructing 1-2 mm right renal stone. 4. Diverticulosis. 5. Small fat-containing bilateral inguinal and supraumbilical ventral hernias. Reviewed, dictated and finalized at location [facility]. [facility] IMPRESSION: 1. Stented infrarenal abdominal aortic aneurysm with decrease in diameter of th e aneurysm from 7.3 x 6.8 to currently 7.0 x 6.4 cm despite the presence of a s u
== END 2022-08-23 07:28 | disposition home or self-care (01) ==
LOC: ANHIMG 07:32
PROVIDERS: PCP Student in an Organized Health Care Education/Training Program
DX: I71.40 Abdominal aortic aneurysm, without rupture, unspecified (principal); I72.3 Aneurysm of iliac artery; N20.0 Calculus of kidney; K57.90 Diverticulosis of intestine, part unspecified, without perforation or abscess without bleeding; K40.90 Unilateral inguinal hernia, without obstruction or gangrene, not specified as recurrent; K43.9 Ventral hernia without obstruction or gangrene
CPT/HCPCS: 74174; 74178; Q9967

== ENCOUNTER 2022-08-30 08:54 | Outpatient (CLI) | payer MEDICARE, SELFPAY | END 2022-08-30 08:55 | disposition home or self-care (01) | PROVIDERS: PCP Student in an Organized Health Care Education/Training Program; Visit Provider Nurse Practitioner | DX: K74.60 Unspecified cirrhosis of liver (principal); E83.00 Disorder of copper metabolism, unspecified | CPT/HCPCS: 36415; 82525 ==

== ENCOUNTER 2022-09-05 08:11 | Outpatient (CLI) | payer MEDICARE, SELFPAY ==
--- NOTE | ~2022-09-05 | NM_ITS ---
Whole-body bone scan: History: Prostate cancer. Radiopharmaceutical: 25.0 mCi of technetium 99m MDP was administered intravenous in the left antecubi arcadio fossa. Comparisons: CT scan of the abdomen and pelvis dated 08/23/2022. No prior nuclear medicine scans for comparison. Procedure: Three hour delayed anterior and posterior whole-body bone scan was performed. Findings: There is focal uptake in the bilateral ischial tuberosity regions, left more pronounced bryan n right. There is also abnormal increased uptake in the L4 and L5 vertebral bodies. There is addition al focal uptake probably just the left side of the cervical spine best seen on posterior planar image s. Remaining radiotracer distribution is physiologic. Impression: Focal areas of uptake in the bilateral ischial tuberosity regions, left more evident right. There is a corresponding sclerotic lesion in the left ischial tuberosity region on recent CT dated 08/23/2022, and questionably very subtle lesion at the right ischial tuberosity. These findings are therefore co nsistent with metastatic prostate cancer lesions. Increased uptake at the L4 and L5 vertebral bodies. Based on recent CT scan, this likely reflects ext ensive degenerative uptake, with extensive degenerative reactive sclerosis seen on CT. MR could be co nsidered to further evaluate the underlying marrow signal characteristics. Increased uptake focally just left of midline in the cervical spine, nonspecific. This could reflect degenerative versus neoplastic uptake. CT and/or MR advised to better assess for underlying degenerat pablo change versus metastatic lesion, if this will affect clinical management. Reviewed, dictated and finalized at [facility]. PULLER Impression: Focal areas of uptake in the bilateral ischial tuberosity regions, left more ev ident right. There is a corresponding sclerotic lesion in the left ischial tube rosity region on recent CT dated 08/23/2022, and questionably very subtle lesio n at the right ischial tuberosity. These findings are therefore consistent with metastatic prostate cancer lesions. Increased uptake at the L4 and L5 vertebral bodies. Based on recent CT scan, th is likely reflects extensive degenerative uptake, with extensive degenerative r eactive sclerosis seen on CT. MR could be considered to further evaluate the un derlying marrow signal characteristics. Increased uptake focally just left of midline in the cervical spine, nonspecifi c. This could reflect degenerative versus neoplastic uptake. CT and/or MR advis ed to better assess for underlying degenerative change versus metastatic lesion , if this will affect clinical management.
== END 2022-09-05 08:12 | disposition home or self-care (01) ==
LOC: ANHIMG 08:14
PROVIDERS: PCP Student in an Organized Health Care Education/Training Program; Visit Provider Urology
DX: C61 Malignant neoplasm of prostate (principal); R94.8 Abnormal results of function studies of other organs and systems
CPT/HCPCS: 78306; A9561

== ENCOUNTER 2022-09-30 13:28 | Outpatient (CLI) | payer MEDICARE, SELFPAY ==
--- NOTE | ~2022-09-30 | PE_ITS ---
EXAMINATION: PET_PETPSMAST_PT DATE: 09/30/2022 15:47 INDICATION: Prostate cancer TECHNIQUE: 9.896 mCi of pipflufolastat F-18 (18-F-DCFPyL) was administered i.v. Low dose computed to mography (CT) images were acquired from the base of the brain to the base of the brain to the proxima l thighs for attenuation correction and anatomic localization. Positron emission tomography (PET) sami ges were acquired in the same distribution beginning 88 minutes after injection. Images including fus ed PET/CT images were reconstructed in axial, coronal, and sagittal planes. Automated exposure contro l technique was employed. The dose-length product was 802.45mGy-cm. COMPARISON: CT abdomen and pelvis dated 08/23/2022 and bone scan dated 09/05/2022 FINDINGS: Head/neck: Typical pattern of symmetric physiologic increased activity in the lacrimal, parotid and submandibula r glands as well as along the mucosa of the nasal cavity, nasopharynx, oropharynx and hypopharynx. Th ere is mild uptake associated with cervical facet osteoarthritis as well as at multiple bilateral cer vical neural foramina likely related to the neural ganglia. No pathologically enlarged cervical lymph adenopathy or suspicious foci of increased uptake in the visualized head or neck. Chest: Is a continuation in the lungs corresponding to atelectasis and subsegmental regions of air trapping likely related to expiratory phase of imaging. Calcified right apical nodule and calcified right marlyn r and mediastinal lymph nodes consistent with old granulomatous disease. 5 mm nodules in the superior segment of the right lower lobe without evident increased activity. No pleural effusion. Cardiomegal y. Atherosclerotic coronary artery calcification. No pericardial effusion. Thoracic aorta is normal i n caliber. No pathologically enlarged or PET PSMA avid thoracic lymphadenopathy. Abdomen/pelvis/proximal thighs: Physiologic renal accumulation and excretion of activity in the kidneys, bladder and along portions o f ureters. Normal degree and slightly heterogenous pattern of increased uptake throughout the liver a nd spleen without radiologic correlate or dominant PSMA avid lesion. Cholecystectomy clips at the gal lbladder fossa. The pancreas and bilateral adrenal glands are normal. Moderate uptake scattered throu ghout the bowels with typical duodenal and proximal jejunal predominance and without radiologic corre late, also likely physiologic. No other abnormal foci of increased uptake or pathologically enlarged lymphadenopathy in the abdomen, pelvis or proximal thighs. Aortobiiliac endoluminal stent graft shital ing an unchanged 7.0 x 6.7 cm fusiform infrarenal abdominal aortic aneurysm. Small right and moderate -sized left fat-containing inguinal hernias. Marked increased There is uptake with maximal SUV of 120 at the right peripheral zone of the prostate is suggestion of minimal extension into the right seminal vesicle. Prominent increased activity asso ciated with a 1.9 cm sclerotic lesion at the left ischial tuberosity with maximal SUV of 17.5 and ass ociated with a 11 mm mixed lytic and sclerotic lesion at the right ischial tuberosity with maximal se yvonne facet 23.5. Severe lower lumbar spondylosis. There is mild uptake at a few of the bilateral lumb ar neural foramina again likely related to neural ganglia. No other suspicious lytic, blastic or PSMA abdomen bone lesions. IMPRESSION: 1. Marked PSMA PET activity at the right peripheral zone of the prostate with extension into the semi nal vesicle consistent with known primary prostate cancer and likely local invasion of the right semi nal vesicle. 2. Prominent asymmetric uptake associated with bone lesions at the bilateral ischial tuberosities con sistent with metastatic bone disease. 3. Stable appearance of a stented 7.0 x 6.7 cm fusiform infrarenal abdominal aortic aneurysm.
== END 2022-09-30 13:29 | disposition home or self-care (01) ==
PROVIDERS: PCP Student in an Organized Health Care Education/Training Program; Visit Provider Urology
DX: C61 Malignant neoplasm of prostate (principal); M89.9 Disorder of bone, unspecified; I71.43 Infrarenal abdominal aortic aneurysm, without rupture
CPT/HCPCS: 78815; A9595

== ENCOUNTER → 2022-11-14 10:45 | Outpatient (CLI) | payer MEDICARE, SELFPAY ==
--- NOTE | ~2022-11-14 | DEXA_ITS ---
Bone Density Report Name: VALERY TRAN Age: 72 Sex: Male Ethnicity: White Date of : 1950 Indication: screening for osteoporosis; cancer Referring Provider: ZEENAT MAIER Study: Bone densitometry was performed. Exam Date: November 14, 2022 Accession number: [id number] Bone Density: Region BMD T-score Z-score Classification AP Spine (L1, L2, L3) 1.299 2.1 3.0 Normal Femoral Neck (Left) 0.778 -1.1 0.1 Osteopenia Total Hip (Left) 1.081 0.3 1.0 Normal Femoral Neck (Right) 0.991 0.5 1.6 Normal Total Hip (Right) 1.114 0.5 1.2 Normal Total Hip Mean 1.098 0.4 1.1 Normal World Health Organization criteria for BMD impression classify patients as: Normal (T-score at or above -1.0), Osteopenia (T-score between -1.0 and -2.5), or Osteoporosis (T-score at or below -2.5). 10-year Fracture Risk(1): Major Osteoporotic Fracture 5.5% Hip Fracture 0.9% Reported Risk Factors: [place] (), Neck BMD=0.778, BMI=27.2 (1) FRAX(R) Version 3.08. Fracture probability calculated for an untreated patient. Fracture probability may be lower if the patient has received treatment. Clinical Information Provided by Patient: Has the following medical conditions: Cancer, PROSTATE CA 08/2022 -PT TAKING XTANDI Patient maximum height was 72.5 Drinks caffeinated beverages Impression: The patient has low bone mass, based on the Left Femoral Neck T-score. The patient has an estimated ten-year risk of hip fracture of 0.9% and an estimated ten-year risk of major fracture of 5.5%, based on the WHO FRAX algorithm. Discussion: BONE DENSITY IS LOW AT ONE OR MORE SKELETAL SITES. This patient's lowest T-score is low at one or more skeletal sites. It meets the World Health Organization's (WHO) criteria for ?low bone mass? (T-score between -1.0 and -2.5). The patient's 10-year risk of fracture as calculated by FRAX is less than the threshold where pharmacological therapy is recommended by the National Osteoporosis Foundation (NOF). However, all treatment decisions require clinical judgment and consideration of individual patient factors, including patient preferences, comorbidities, previous drug use, risk factors not captured in the FRAX model (e.g., frailty, falls, vitamin D deficiency, increased bone turnover, interval significant decline in bone density) and possible under or overestimation of fracture risk by FRAX. The patient should follow a healthful lifestyle (good nutrition with adequate calcium and vitamin D, and appropriate weight-bearing exercise). Follow-Up: Consider repeating this study in 2 to 3 years to reassess this patient's status, or sooner if there is some new clinical indication. Reported by: CHRISTIN on 11/14/2022 11:34:00 AM. Reviewed, dictated
== END ==
PROVIDERS: PCP Student in an Organized Health Care Education/Training Program; Visit Provider Nurse Practitioner Adult Health
DX: M85.88 Other specified disorders of bone density and structure, other site (principal); M85.852 Other specified disorders of bone density and structure, left thigh
CPT/HCPCS: 77080

== ENCOUNTER 2022-11-20 14:48 | Outpatient (CLI) | payer MEDICARE, SELFPAY ==
[2022-11-20 15:48] LABS: Anion Gap 8 mmol/L (8-16); Blood Urea Nitrogen 29 mg/dL (9-20); Calcium 9.7 mg/dL (8.4-10.2); Carbon Dioxide 28 mmol/L (22-30); Chloride 101 mmol/L (98-107); Estimated Glomerular Filt Rate > 60; Glucose 89 mg/dL (65-110); Sodium 137 mmol/L (137-145)
== END 2022-11-20 14:49 | disposition home or self-care (01) ==
LOC: ANHLAB 14:52
PROVIDERS: PCP Student in an Organized Health Care Education/Training Program; Visit Provider Specialist
DX: R00.1 Bradycardia, unspecified (principal)
CPT/HCPCS: 36415; 80048

== ENCOUNTER 2022-12-18 08:50 | Outpatient (CLI) | payer MEDICARE, SELFPAY ==
[2022-12-18 09:17] LABS: Magnesium 1.5 mg/dL (1.6-2.3)
== END 2022-12-18 08:51 | disposition home or self-care (01) ==
PROVIDERS: PCP Student in an Organized Health Care Education/Training Program; Visit Provider Nurse Practitioner Adult Health
DX: R00.1 Bradycardia, unspecified (principal)
CPT/HCPCS: 36415; 83735

== ENCOUNTER 2023-01-23 09:57 | Outpatient (CLI) | payer MEDICARE, SELFPAY ==
[2023-01-23 10:44] LABS: Magnesium 1.6 mg/dL (1.6-2.3)
== END 2023-01-23 09:58 | disposition home or self-care (01) ==
PROVIDERS: PCP Student in an Organized Health Care Education/Training Program; Visit Provider Nurse Practitioner Adult Health
DX: E83.42 Hypomagnesemia (principal)
CPT/HCPCS: 36415; 83735

== ENCOUNTER 2023-02-05 11:59 | Outpatient (CLI) | payer MEDICARE, SELFPAY ==
[2023-02-05 12:25] LABS: Mean Corpuscular HGB Conc 33.3 g/dl (32-36); Mean Corpuscular Hemoglobin 30.5 pg (26-34); Mean Corpuscular Volume 91.4 fl (80-100); Mean Platelet Volume 9.3 fl (7.4-10.4); Platelet Count Result 225 k/mm3 (150-375); Red Blood Count 3.94 M/mm3 (4.6-6.20); Red Cell Distribution Width 14.6 % (11.5-14.5); White Blood Count 4.6 K/mm3 (4.5-10.0)
[2023-02-05 12:34] LABS: INR 0.9; Prothrombin Time 12.7 Seconds (11.1-14.7)
[2023-02-05 14:02] LABS: Alanine Aminotransferase 24 U/L (6-50); Albumin Level 4.4 g/dL (3.5-5.1); Alkaline Phosphatase 47 U/L (38-126); Anion Gap 12 mmol/L (8-16); Aspartate Amino Transferase 34 U/L (17-59); Bilirubin,Total 0.5 mg/dL (0.2-1.3); Blood Urea Nitrogen 19 mg/dL (9-20); Calcium 9.1 mg/dL (8.4-10.2); Carbon Dioxide 25 mmol/L (22-30); Chloride 93 mmol/L (98-107); Estimated Glomerular Filt Rate > 60; Glucose 94 mg/dL (65-110); Potassium 4.5 mmol/L (3.4-5.0); Sodium 130 mmol/L (137-145)
== END 2023-02-05 12:00 | disposition home or self-care (01) ==
PROVIDERS: PCP Student in an Organized Health Care Education/Training Program; Visit Provider Nurse Practitioner
DX: K74.60 Unspecified cirrhosis of liver (principal); Z96.652 Presence of left artificial knee joint
CPT/HCPCS: 36415; 80053; 85027; 85610

== ENCOUNTER 2023-02-25 11:19 | Outpatient (CLI) | payer MEDICARE, SELFPAY ==
[2023-02-25 12:05] LABS: Anion Gap 10 mmol/L (8-16); Blood Urea Nitrogen 20 mg/dL (9-20); Calcium 9.5 mg/dL (8.4-10.2); Carbon Dioxide 25 mmol/L (22-30); Chloride 98 mmol/L (98-107); Estimated Glomerular Filt Rate > 60; Glucose 111 mg/dL (65-110); Potassium 4.9 mmol/L (3.4-5.0); Sodium 133 mmol/L (137-145)
== END 2023-02-25 11:20 | disposition home or self-care (01) ==
PROVIDERS: PCP Student in an Organized Health Care Education/Training Program; Visit Provider Student in an Organized Health Care Education/Training Program
DX: E87.1 Hypo-osmolality and hyponatremia (principal)
CPT/HCPCS: 36415; 80048

== ENCOUNTER 2023-02-27 08:10 | Outpatient (CLI) | payer MEDICARE, SELFPAY ==
--- NOTE | ~2023-02-27 | MR_ITS ---
MRI of the cervical spine Clinical History: Prostate cancer Technique: Axial T2-weighted and gradient images, and sagittal T1-weighted, T2-weighted, and STIR sami ges were acquired. Findings: No fracture identified. There is 3 mm anterolisthesis of C3 over C4. There is mild reversal normal cervical lordosis. No suspicious bone marrow signal abnormality identified. At C2-C3, there is minimal disc bulge. No spinal canal stenosis or cord compression. Neural foramina are preserved. There is right facet arthropathy. At C3-C4, there is mild disc bulge. There is facet arthropathy bilaterally, advanced. There is probab le bilateral neural foraminal narrowing, left worse than right. No central canal stenosis or cord com pression. At C4-C5, there is no significant disc bulge or herniation. There is left facet arthropathy. Neural f oramina are preserved. No central canal stenosis or cord compression. At C5-C6, there is disc osteophyte complex without camryn canal stenosis or cord compression. Neural f oramina are probably preserved. There is left facet arthropathy. At C6-C7, there is advanced degenerative disc narrowing with minimal disc osteophyte complex. No cent ral canal stenosis or cord compression. Suspected minimal left neural foraminal narrowing. Right neur al foramen probably preserved. No abnormal signal seen in the spinal cord. Paravertebral soft tissues are unremarkable. Impression: Mild degenerative spondylosis, as detailed above. 3 mm anterolisthesis of C3 over C4. Reviewed, dictated and finalized at [facility]. Impression: Mild degenerative spondylosis, as detailed above. 3 mm anterolisthesis of C3 over C4.
--- NOTE | ~2023-02-27 | MR_ITS ---
MRI of the lumbar spine Clinical History: Prostate cancer Technique: Axial T2-weighted images, and sagittal T1-weighted, T2-weighted, and T2 fat-sat images wer e acquired. Findings: There is extensive susceptibility artifact related to infrarenal abdominal aortic stent gra ft. Portions of some vertebral bodies are obscured, most notably at the L1-L2 level. No fracture or s ubluxation evident in the lumbar spine. No definite suspicious bone marrow signal abnormality identif ied . There are mild reactive marrow signal changes about the L4-L5 disc space due to degenerative disc d isease. At L1-L2, there is probable moderate degenerative disc narrowing. No disc bulge or herniation. There is mild facet joint degenerative change. No spinal canal stenosis or neural foraminal narrowing. At L2-L3, there is minimal disc bulge with mild to moderate facet arthropathy. No central canal steno sis or neural foraminal narrowing. At L3-L4, there is diffuse disc bulge with moderate facet arthropathy. No central canal stenosis or n eural foraminal narrowing. At L4-L5, there is severe degenerative disc narrowing. There is mild diffuse disc bulge and moderate facet arthropathy. No central canal stenosis. There is moderate to severe left neural foraminal narro wing and moderate right neural foraminal narrowing. At L5-S1, there is severe degenerative disc narrowing. There is mild disc bulge with moderate facet a rthropathy. No central canal stenosis. There is severe bilateral neural foraminal narrowing. Paravertebral soft tissues are otherwise unremarkable. Impression: No suspicious bone marrow signal abnormality. Moderate degenerative spondylosis at L4-L5 and L5-S1, with bilateral advanced neural foraminal narrow ing, as detailed above. Additional mild degenerative changes, as detailed above. Reviewed, dictated and finalized at [facility] [place]. Impression: No suspicious bone marrow signal abnormality. Moderate degenerative spondylosis at L4-L5 and L5-S1, with bilateral advanced n eural foraminal narrowing, as detailed above. Additional mild degenerative changes, as detailed above.
== END 2023-02-27 08:11 | disposition home or self-care (01) ==
PROVIDERS: PCP Student in an Organized Health Care Education/Training Program; Visit Provider Radiology Radiation Oncology
DX: C61 Malignant neoplasm of prostate (principal); Z51.0 Encounter for antineoplastic radiation therapy; M43.02 Spondylolysis, cervical region; M43.06 Spondylolysis, lumbar region
CPT/HCPCS: 72141; 72148

== ENCOUNTER 2023-04-11 12:08 | Outpatient (CLI) | payer MEDICARE, SELFPAY ==
--- NOTE | ~2023-04-11 | PE_ITS ---
EXAMINATION: PET_PETPSMAST_PT DATE: 04/11/2023 14:13 INDICATION: Prostate cancer TECHNIQUE: 9.265 mCi of pipflufolastat F-18 (18-F-DCFPyL) was administered i.v. Low dose computed to mography (CT) images were acquired from the base of the brain to the base of the brain to the proxima l thighs for attenuation correction and anatomic localization. Positron emission tomography (PET) sami ges were acquired in the same distribution beginning 92 minutes after injection. Images including fus ed PET/CT images were reconstructed in axial, coronal, and sagittal planes. Automated exposure contro l technique was employed. The dose-length product was 585.32mGy-cm. COMPARISON: 09/30/2022 FINDINGS: Head/neck: Typical pattern of symmetric physiologic increased activity in the lacrimal, parotid and submandibula r glands as well as along the mucosa of the nasal and oral cavities, the melanie-, naso- and hypopharynx, the glottis and esophagus. A few unchanged tiny foci of uptake at the bilateral cervical neural fora octavio consistent with physiologic uptake in the ganglia. No pathologically enlarged cervical lymphaden opathy or suspicious foci of increased uptake in the visualized head or neck. Chest: Again seen is mosaic attenuation in the dependent lungs likely representing a combination of atelecta sis related to expiratory phase of imaging superimposed over mild emphysema. Calcified right upper lo be nodule along with calcified right hilar and mediastinal lymph nodes consistent with old granulomat ous disease. Again seen are a few <5 mm nodules in the right middle lobe and superior segment of the right lower lobe without corresponding FDG activity. No pleural effusion. Cardiomegaly. Atherosclerot ic coronary artery calcifications. No pericardial effusion. Thoracic aorta is normal in caliber. No p athologically enlarged or PSMA avid thoracic lymphadenopathy. Abdomen/pelvis/proximal thighs: Physiologic renal accumulation and excretion of activity in the kidneys, bladder and along portions o f ureters. Normal degree and slightly heterogenous pattern of increased uptake throughout the liver a nd spleen without radiologic correlate or dominant PSMA avid lesion. Cholecystectomy clips at the gal lbladder fossa. Pancreas and bilateral adrenal glands are normal. Moderate uptake scattered throughou t the bowels with typical duodenal and proximal jejunal predominance and without radiologic correlate , also likely physiologic. Normal appendix. No other abnormal foci of increased uptake or pathologica lly enlarged lymphadenopathy in the abdomen, pelvis or proximal thighs. Aortobiiliac endoluminal sten t graft spanning an unchanged 7.0 x 6.7 cm fusiform infrarenal abdominal aortic aneurysm. Small right and moderate-sized left fat-containing inguinal hernias. 4.3 x 3.2 x 1.1 cm low-density hydrogel spa cer between the posterior prostate and anterior wall of the rectum. There are few metallic densities which could represent either surgical clips are brachytherapy seeds at the site of the previously enl arged and locally PSMA avid prostate consistent with response to radiation treatment. No residual abn ormal PSMA uptake identified in the region of the prostate or surrounding soft tissues to suggest res idual/locally recurrent disease. Musculoskeletal: Severe lower lumbar spondylosis with associated sclerotic Modic type III degenerative endplate change s. Less severe mild to moderate spondylosis in the more cephalad lumbar, thoracic and cervical spine. Resolution of prior increased activity at the bilateral ischial tuberosities where there is increasi ng sclerosis seen at the periphery of the previously noted small sclerotic bone lesions likely reflec ting response to treatment of metastatic disease. No other suspicious lytic, blastic or PSMA avid bon e lesions. IMPRESSION: 1. Decrease in size of the prostate and resolution of prior focal increased PSMA uptake with hyd
== END 2023-04-11 12:09 | disposition home or self-care (01) ==
LOC: ANHIMG 12:15
PROVIDERS: PCP Student in an Organized Health Care Education/Training Program; Visit Provider Nurse Practitioner Adult Health
DX: C61 Malignant neoplasm of prostate (principal); M89.9 Disorder of bone, unspecified; I71.43 Infrarenal abdominal aortic aneurysm, without rupture
CPT/HCPCS: 78815; A9595

== ENCOUNTER 2023-04-25 08:35 | Outpatient (CLI) | payer MEDICARE, SELFPAY ==
[2023-04-25 09:14] LABS: Magnesium 1.2 mg/dL (1.6-2.3)
== END 2023-04-25 08:36 | disposition home or self-care (01) ==
LOC: ANHLAB 08:36
PROVIDERS: PCP Student in an Organized Health Care Education/Training Program; Visit Provider Nurse Practitioner Adult Health
DX: I49.3 Ventricular premature depolarization (principal); I49.1 Atrial premature depolarization
CPT/HCPCS: 36415; 83735

== ENCOUNTER 2023-05-21 12:08 | Outpatient (CLI) | payer MEDICARE, SELFPAY ==
[2023-05-21 13:12] LABS: Magnesium 1.5 mg/dL (1.6-2.3)
== END 2023-05-21 12:09 | disposition home or self-care (01) ==
LOC: ANHLAB 12:11
PROVIDERS: PCP Student in an Organized Health Care Education/Training Program; Visit Provider Internal Medicine Cardiovascular Disease
DX: E83.42 Hypomagnesemia (principal)
CPT/HCPCS: 36415; 83735

== ENCOUNTER 2023-06-25 11:16 | Outpatient (CLI) | payer MEDICARE, SELFPAY ==
[2023-06-25 12:24] LABS: Magnesium 1.3 mg/dL (1.6-2.3)
== END 2023-06-25 11:17 | disposition home or self-care (01) ==
LOC: ANHLAB 11:19
PROVIDERS: PCP Student in an Organized Health Care Education/Training Program; Visit Provider Internal Medicine Cardiovascular Disease
DX: E83.42 Hypomagnesemia (principal)
CPT/HCPCS: 36415; 83735

== ENCOUNTER 2023-07-14 06:53 | Outpatient (CLI) | payer MEDICARE, SELFPAY ==
[2023-07-14 08:02] LABS: Cholesterol 217 mg/dL (0-200); HDL Direct 48 mg/dL; Triglycerides 422 mg/dL (<150)
[2023-07-14 08:03] LABS: Anion Gap 11 mmol/L (8-16); Blood Urea Nitrogen 18 mg/dL (9-20); Calcium 9.7 mg/dL (8.4-10.2); Carbon Dioxide 27 mmol/L (22-30); Chloride 99 mmol/L (98-107); Estimated Glomerular Filt Rate > 60; Glucose 160 mg/dL (65-110); Potassium 4.5 mmol/L (3.4-5.0); Sodium 137 mmol/L (137-145)
[2023-07-14 08:06] LABS: Creatinine Urine 57.5 mg/dL
[2023-07-14 08:14] LABS: LDL Cholesterol Direct 84 mg/dL
[2023-07-14 17:43] LABS: MALB Creatinine Ratio 1914.8 mg/g (0-30)
== END 2023-07-14 06:54 | disposition home or self-care (01) ==
PROVIDERS: PCP Student in an Organized Health Care Education/Training Program; Referring Provider Internal Medicine Cardiovascular Disease; Visit Provider Internal Medicine Endocrinology, Diabetes & Metabolism
DX: E11.9 Type 2 diabetes mellitus without complications (principal); E83.42 Hypomagnesemia
CPT/HCPCS: 36415; 80048; 80061; 82043; 82607

== ENCOUNTER 2023-08-06 08:30 | Outpatient (CLI) | payer MEDICARE, SELFPAY ==
[2023-08-06 10:01] LABS: Alanine Aminotransferase 16 U/L (6-50); Albumin Level 4.4 g/dL (3.5-5.1); Alkaline Phosphatase 62 U/L (38-126); Anion Gap 11 mmol/L (8-16); Aspartate Amino Transferase 29 U/L (17-59); Bilirubin,Total 0.6 mg/dL (0.2-1.3); Blood Urea Nitrogen 19 mg/dL (9-20); Calcium 10.1 mg/dL (8.4-10.2); Carbon Dioxide 27 mmol/L (22-30); Chloride 100 mmol/L (98-107); Cholesterol 228 mg/dL (0-200); Estimated Glomerular Filt Rate > 60; Glucose 170 mg/dL (65-110); HDL Direct 44 mg/dL; Potassium 4.8 mmol/L (3.4-5.0); Sodium 138 mmol/L (137-145); Triglycerides 448 mg/dL (<150)
[2023-08-06 10:12] LABS: LDL Cholesterol Direct 91 mg/dL
== END 2023-08-06 08:31 | disposition home or self-care (01) ==
PROVIDERS: PCP Student in an Organized Health Care Education/Training Program; Visit Provider Student in an Organized Health Care Education/Training Program
DX: E78.2 Mixed hyperlipidemia (principal); E11.69 Type 2 diabetes mellitus with other specified complication; E11.59 Type 2 diabetes mellitus with other circulatory complications
CPT/HCPCS: 36415; 80053; 80061

== ENCOUNTER 2023-08-08 08:20 | Outpatient (CLI) | payer MEDICARE, SELFPAY ==
--- NOTE | 2023-08-12 10:13 | WPDPFTINT ---
PFT Procedure Performed PFT Procedure Performed Spirometry with Pre/Post Bronchodilator Plethysmography (Lung Vol) Diffusing Cap (DLCO) Flow Vol Loop PFT Interpretation DOS: 08/08/2023 REQUESTING: [ ] REASON FOR TESTING: [ ] PULMONARY FUNCTION TESTS Spirometry: [ ] Lung volumes: [ ] Diffusion: DLCO [ ] Flow volume loop: [ ] IMPRESSION: [ ] Fidelia Newberry MD
--- NOTE | 2023-08-18 14:27 | WPDPFTINT ---
PFT Procedure Performed PFT Procedure Performed Spirometry with Pre/Post Bronchodilator Plethysmography (Lung Vol) Diffusing Cap (DLCO) Flow Vol Loop PFT Interpretation This is a pulmonary function test with pre and post-bronchodilator spirometry, plethysmography and diffusing capacity. The test was performed and results interpreted in accordance with the 2019 and 2005 ATS/ERS Task Force guidelines respectively using the Global Lung Function Initiative-2012 reference equations. Patient demonstrated good effort and cooperation. Reproducibility criteria were met. The quality of the pre bronchodilator spirometry maneuver was Grade A and post bronchodilator spirometry maneuver was Grade A. Findings: Spirometry: The contour the inspiratory and expiratory flow tracing are normal. The pre bronchodilator FVC is 4.33 L, 95% predicted. The pre bronchodilator FEV1 is 3.06 L, 89% predicted. The pre bronchodilator FEV1: FVC ratio 71%. The post bronchodilator FVC is 4.44 L, representing a 3% increase. The post bronchodilator FEV1 is 3.24 L, representing a 6% increase. The post bronchodilator FEV1: FVC ratio is 73%. Plethysmography: The total lung capacity is 5.67 L, 76% predicted. The functional residual capacity is 2.60 L, 65% predicted. The residual volume is 1.33 L, 52% predicted. Diffusing capacity: The diffusing capacity unadjusted for hemoglobin and carboxyhemoglobin is 16.5, 61% predicted. The diffusing capacity adjusted for alveolar volume is 3.20, 84% predicted. Impression: There is a mild restrictive ventilatory abnormality with a normal FEV1. The spirometry is normal without evidence of an obstructive abnormality. There is no significant improvement after inhaling a single dose of albuterol. The diffusing capacity unadjusted for hemoglobin and carboxyhemoglobin is mildly decreased and normalizes when adjusted for alveolar volume. There are no prior studies for comparison
== END 2023-08-08 08:21 | disposition home or self-care (01) ==
LOC: ANHPFT 08:22
PROVIDERS: PCP Student in an Organized Health Care Education/Training Program; Visit Provider Student in an Organized Health Care Education/Training Program
DX: J43.9 Emphysema, unspecified (principal)
CPT/HCPCS: 94060; 94726; 94729

== ENCOUNTER 2023-11-04 10:39 | Outpatient (CLI) | payer MEDICARE, SELFPAY ==
[2023-11-04 12:06] LABS: Albumin Level 4.1 g/dL (3.5-5.1); Anion Gap 10 mmol/L (8-16); Blood Urea Nitrogen 18 mg/dL (9-20); Calcium 9.6 mg/dL (8.4-10.2); Carbon Dioxide 23 mmol/L (22-30); Chloride 103 mmol/L (98-107); Creatine Kinase 87 U/L (55-170); Estimated Glomerular Filt Rate > 60; Glucose 128 mg/dL (65-110); Phosphorus 4.5 mg/dL (2.5-4.5); Potassium 4.6 mmol/L (3.4-5.0); Sodium 136 mmol/L (137-145)
[2023-11-04 12:14] LABS: Complement C3 136 mg/dL (88-165)
[2023-11-04 12:33] LABS: Prostate Specific Antigen < 0.1 ng/mL (< OR = 4.0)
[2023-11-04 15:05] LABS: Creatinine Urine 208.8 mg/dL; Total Protein Urine Random 196 mg/dL; Ur Ttl Prot Creatinine Ratio 0.94 mg/mg (0-0.20)
[2023-11-06 14:56] LABS: Albumin 3.8 g/dL (3.8-4.8); Alpha 1 Globulin 0.3 g/dL (0.2-0.3); Beta 1 Globulin 0.4 g/dL (0.4-0.6); Gamma Globulin 0.7 g/dL (0.8-1.7); Protein, Total 6.6 g/dL (6.1-8.1)
[2023-11-08 10:41] LABS: Testosterone Total 8 ng/dL (250-1100)
[2023-11-08 14:47] LABS: Anti Glomerular Basement Memb <1.0 AI (<1.0)
[2023-11-10 01:16] LABS: ANCA Screen P-ANCA POS (Negative)
[2023-11-10 01:34] LABS: P-ANCA Titer Reflex Chg Test YES
[2023-11-11 21:23] LABS: Creatinine, Random Urine 171 mg/dL (20-320); Total Protein/Creatinine Ratio 2240 mg/g creat (25-148)
== END 2023-11-04 10:40 | disposition home or self-care (01) ==
PROVIDERS: PCP Student in an Organized Health Care Education/Training Program; Referring Provider Urology; Visit Provider Internal Medicine Nephrology
DX: C61 Malignant neoplasm of prostate (principal); E11.29 Type 2 diabetes mellitus with other diabetic kidney complication; R80.9 Proteinuria, unspecified
CPT/HCPCS: 36415; 80069; 82550; 82570; 83520; 84153; 84155; 84156; 84165; 84166; 84403; 86036; 86038; 86039; 86160; 86225

== ENCOUNTER 2023-11-13 08:54 | Outpatient (CLI) | payer MEDICARE, SELFPAY ==
--- NOTE | ~2023-11-13 | US_ITS ---
EXAMINATION: US renal BI DATE: 11/13/2023 09:13 INDICATION: Proteinuria TECHNIQUE: Multiple ultrasound grayscale images of the kidneys were obtained. COMPARISON: None. FINDINGS: The right kidney measures 11.6 x 5.3 x 5.3 cm. The left kidney measures 12.6 x 4.5 x 6.3 cm. The kidn eys demonstrate normal echogenicity. 1.2 cm anechoic right renal cyst. There is no hydronephrosis in either kidney. No stones identified. The bladder is normal. IMPRESSION: 1. 1.2 cm right renal cyst. Otherwise normal kidneys with no hydronephrosis. Reviewed, dictated and finalized at location L.
== END 2023-11-13 08:55 ==
LOC: GOSHIMG 08:55
PROVIDERS: PCP Student in an Organized Health Care Education/Training Program; Visit Provider Internal Medicine Nephrology
DX: E11.29 Type 2 diabetes mellitus with other diabetic kidney complication (principal); R80.9 Proteinuria, unspecified; N28.1 Cyst of kidney, acquired
CPT/HCPCS: 76775

== ENCOUNTER 2023-12-26 15:27 | Emergency (ER) | payer MEDICARE, SELFPAY ==
[2023-12-26 15:36] VITALS: BP 110/54; PULSE 80; RESP 16; TEMP 36.3; O2SAT 95
[2023-12-26 15:39] VITALS: BP 110/54; PULSE 80; RESP 16; TEMP 36.3; O2SAT 95
--- NOTE | 2023-12-26 15:50 | ED.URI ---
HPI - URI/Sore Throat General Chief Complaint: Upper Respiratory Infection Stated Complaint: Bodyaches,Diarrhea,Fever Source: patient and RN notes reviewed Mode of arrival: ambulatory Limitations: no limitations History of Present Illness HPI Narrative: 73-year-old male with a history of diabetes, prostate cancer presented for complaint body aches, sore throat, decreased appetite and fever. Onset 3 days. Reports fever up to 101.3 this morning, and one episode of diarrhea. Pt taking ibuprofen which provided temporary relief. Denies CP, palpitations, shortness of breath, wheezing, nausea, vomiting or lethargy. MD elicited complaint: cough Related Data Home Medications Medication Instructions Recorded Confirmed albuterol sulfate 90 mcg/actuation inhalation 12/26/23 aerosol inhaler alendronate 70 mg tablet mg PO 12/26/23 amlodipine 10 mg tablet mg 12/26/23 aspirin 81 mg tablet,delayed 81 mg PO DAILY 12/26/23 12/26/23 release biotin 1,000 mcg chewable tablet 1,000 mcg PO DAILY 12/26/23 12/26/23 blood sugar diagnostic ([facility] 12/26/23 12/26/23 Verio test strips) evolocumab 140 mg/mL subcutaneous mg subcut 12/26/23 pen injector (Magda Christianson) glimepiride 1 mg tablet mg 12/26/23 hydralazine 50 mg tablet mg 12/26/23 lancets 30 gauge ([facility] Delica 12/26/23 12/26/23 Plus Lancet) lisinopril 20 mg tablet mg 12/26/23 melatonin 10 mg tablet 10 mg PO HS 12/26/23 12/26/23 metformin 1,000 mg tablet mg 12/26/23 naloxone 4 mg/actuation nasal 4 mg intranasal DIRECTED 12/26/23 12/26/23 spray (Narcan) omeprazole 20 mg capsule,delayed mg 12/26/23 release oxycodone-acetaminophen 10 mg-325 tablet 12/26/23 mg tablet pregabalin 75 mg capsule mg 12/26/23 tamsulosin 0.4 mg capsule mg PO 12/26/23 umeclidinium 62.5 mcg-vilanterol inhalation 12/26/23 25 mcg/actuation powdr for inhalation (Anoro Ellipta) Allergies Allergy/AdvReac Type Severity Reaction Status Date / Time [place]-EAI-AcT Reductase AdvReac Intermediate Cramping Verified 12/26/23 15:38 Inhibitor of the [Jbfyhqq-Znf-Jvx Reductase Muscles Inhibitor] Review of Systems Review of Systems: CONSTITUTIONAL: Endorses malaise, fever EYES: Denies visual changes, redness, or discharge ENT: Reports rhinorrhea, congestion, sore throat CARDIOVASCULAR: Denies chest pain, palpitations, edema RESPIRATORY: Reports cough, post nasal drainage. Denies dyspnea GASTROINTESTINAL: Denies abdominal pain, nausea, vomiting, reports diarrhea SKIN: Denies rash or itching MUSCULOSKELETAL: Endorses myalgia NEUROLOGIC: reports headache PMFSH Past Medical History Medical History AAA (abdominal aortic aneurysm) Acute cholecystitis with chronic cholecystitis Angiokeratoma of scalp Arthritis Back pain Body mass index (BMI) of 25 to 29 in adult Chronic diarrhea Cirrhosis Colon cancer screening Dyslipidemia Gallbladder mass Hearing loss History of alcohol abuse Hyperlipidemia, unspecified Hypertension Melena Primary osteoarthritis of left knee Prostate cancer Diagnosed 09/2022, 45 radiation treatments Proteinuria due to type 2 diabetes mellitus RLS (restless legs syndrome) Sinus abscess Sleep disturbances Tear of medial meniscus of left knee Trochanteric bursitis of both hips Type 2 diabetes mellitus with hyperglycemia, without long-term current use of insulin Surgical History Surgical History H/O abdominal aortic aneurysm repair (~10/05/12) History of cholecystectomy (~03/02/18) History of cholecystectomy History of meniscectomy of left knee (~08/20/17) History of prostate surgery placed rubber barrier before radiation treatments History of repair of aneurysm of abdominal aorta using endovascular stent graft History of total knee replacement (TKR) History of total left knee replacement (~10/07/18) Presence of left artifi
[2023-12-26 16:09] LABS: Glucose Point of Care 130 mg/dl (65-105)
== END 2023-12-26 16:14 | disposition home or self-care (01) ==
PROVIDERS: Emergency Provider Nurse Practitioner Family
DX: B34.9 Viral infection, unspecified (principal); Z20.822 Contact with and (suspected) exposure to COVID-19; Z87.891 Personal history of nicotine dependence; E78.5 Hyperlipidemia, unspecified; I10 Essential (primary) hypertension; G25.81 Restless legs syndrome; E11.9 Type 2 diabetes mellitus without complications; M17.12 Unilateral primary osteoarthritis, left knee; Z96.652 Presence of left artificial knee joint; Z85.46 Personal history of malignant neoplasm of prostate
CPT/HCPCS: 82948; 87081; 87426; 87804; 87880; 99213; G0463

== ENCOUNTER 2024-01-27 09:00 | Outpatient (RCR) | payer MEDICARE, SELFPAY ==
--- NOTE | 2023-12-18 09:26 | OPREHPOC ---
Outpatient Therapy Plan of Care This is a Multidisciplinary Plan of Care that may contain components documented by all disciplines (PT, OT, and ST.) PT Problem 1 PT Problem #1 Knowledge Deficit PT Goal 1 Goal [place] with HEP Target Visit 4 Progress Met PT Problem 2 PT Problem #2 Pain PT Goal 1 Goal Patient will reports no pain greater than 2/10 with supine to sit in the AM PT Problem 3 PT Problem #3 Impaired Range of Motion PT Goal 1 Goal Demonstrate 40 degrees bilaterally hip abduction for reduced capsular restriction Target Visit 10 PT Goal 2 Goal Demonstrate 10 degrees of left ankle dorsiflexion to help achieve terminal stance of gait Target Visit 10 PT Problem 4 PT Problem #4 Impaired Strength PT Goal 1 Goal Patient will improve cecy hip abduction strength to 4/5 to improve lateral stability with ADLs Target Visit 10 PT Goal 2 Goal Patient will improve cecy hip flexion strength to 4 +/5 to improve foot clearance with gait with ADLs Target Visit 10
--- NOTE | 2023-12-18 09:26 | PTOPEVAL1 ---
Assessment and note entered by Eriberto Torres, PT Evaluation Information Assessment Status Evaluation Diagnosis Chronic pain of left knee, Left hip pain Onset 2 years (2021) Subjective Information Reports that he has been having pain in both of his hips and his left knee for about a year and a half to 2 years. Will occasionally have pain into his feet but has neuropathy per report. Left knee has been giving him some trouble for about a year as well. Denies any falls at this time but he has had some dizziness when getting out of bed. Reports that back is very stiff in the morning as well but he is able to work it out after walking for a while. He is taking Oxycodone for pain and has been unable to do a full lap around his yard. He has gone through radiation treatment for cancer in the past 2 years. Not currently under cancer treatment. He is active and plays pickle ball when he can. Reported Pain Level Pain Score 5: Self Report Assessment PT Clinical Summary Patient presents with signs and symptoms consistent with sciatic and lumbar stenosis which appears to be radiating into lateral knee complex and leg. Demonstrates significant weakness in cecy hips and core. Will benefit from skilled therapy to address these deficits to maximize stability and overall pain free function with activity. Plan of Care Interventions Electrical Stimulation,Gait Training,Manual Therapy,Neuro Re-education,Therapeutic Activities, Therapeutic Exercise PT Services Indicated Yes Treatment Frequency and 2x/week for 10 visits Duration These treatments will address the objective and functional deficits as defined above. The patient will be advanced safely and appropriately in order for the patient to progress towards his/her prior level of function. Additional exercises will be introduced and as well as a comprehensive home exercise program upon discharge, if needed, ?to ensure carryover of functional gains achieved in the clinic. This treatment plan has been reviewed and agreement upon by the patient.
--- NOTE | 2024-01-27 09:56 | PTOPDC ---
Assessment and note entered by Giselle Chairez, PT Discharge Information Assessment Status Discharge Diagnosis Chronic pain of left knee, Left hip pain Onset 2 years (2021) Subjective Information pain is the same, but more flexible and walk better; been doing the exercises; have problems lying on his side for sleeping; cannot do all the yard work, like used to do--have to have some one else do; am able to do the weed eater, but do in several rounds, not all at once; agree to discharge PT at this time, will continue the exercises and go to the gym. Reported Pain Level Pain Score Self Report Additional Pain Score Comments pain range in the past week 4-10; both hips and L buttock, lateral thigh, knee and to mid calf; with working in the yard, get cramps in both calves; is taking oxycodene every 5 hours; it helps for sleeping; decrease pain: meds, lie down and rest; do not use heat/ice- instruct on PRN use; also have neck pain--to see neurosurgeon for neck Assessment PT Clinical Summary Rudi has received 10 PT sessions. Compared to the initial evaluation: self rating with LE functional scale is worse, from 61% to 73% limitation in activity level; increase strength of trunk and LE's; increase flexibility of hamstring, piriformis and gastroc muscles on R and L; pain rating today of 4-10/10, radicular into L LE to calf; continues to have an increase in pain with supine/sit transfer; education for home exercises and posture. The goals were partially met. Discharge PT services. He is to continue with his HEP. Plan of Care PT Services Indicated No
== END 2024-01-27 11:32 | disposition home or self-care (01) ==
LOC: ANHPT 09:00
PROVIDERS: PCP Student in an Organized Health Care Education/Training Program; Visit Provider Student in an Organized Health Care Education/Training Program
DX: M25.562 Pain in left knee (principal); G89.29 Other chronic pain; Z96.652 Presence of left artificial knee joint
CPT/HCPCS: 97110; 97116; 97140; 97161; 97530

== ENCOUNTER 2024-02-09 06:54 | Outpatient (CLI) | payer MEDICARE, SELFPAY ==
[2024-02-09 07:53] LABS: Albumin Level 4.1 g/dL (3.5-5.1); Anion Gap 6 mmol/L (4-12); Blood Urea Nitrogen 20 mg/dL (9-20); Calcium 9.2 mg/dL (8.4-10.2); Carbon Dioxide 25 mmol/L (22-30); Chloride 103 mmol/L (98-107); Estimated Glomerular Filt Rate > 60; Glucose 160 mg/dL (65-110); Phosphorus 4.1 mg/dL (2.5-4.5); Sodium 134 mmol/L (137-145)
[2024-02-09 08:58] LABS: Creatinine Urine 210.9 mg/dL
[2024-02-09 09:04] LABS: Ur Ttl Prot Creatinine Ratio 1.98 mg/mg (0-0.20)
[2024-02-09 09:06] LABS: Total Protein Urine Random 417 mg/dL
[2024-02-13 12:05] LABS: ANCA Screen NEGATIVE (NEGATIVE)
== END 2024-02-09 06:55 | disposition home or self-care (01) ==
PROVIDERS: PCP Student in an Organized Health Care Education/Training Program; Referring Provider Urology; Visit Provider Internal Medicine Nephrology
DX: E11.29 Type 2 diabetes mellitus with other diabetic kidney complication (principal); R76.8 Other specified abnormal immunological findings in serum; R80.9 Proteinuria, unspecified; C61 Malignant neoplasm of prostate
CPT/HCPCS: 36415; 80069; 82570; 84156; 86036

== ENCOUNTER 2024-02-18 08:19 | Outpatient (CLI) | payer MEDICARE, SELFPAY ==
--- NOTE | ~2024-02-18 | XR_ITS ---
XR cervical spine 4-5V Ordering provider: Kerri Burnett MD History: . M43.12 - Spondylolisthesis, cervical region . Comparison: None. FINDINGS: VERTEBRAL BODIES: Minimal anterolisthesis at the level of C3-C4, and C4-C5. Lucency is seen in the ba se of the C6 and mid C5 are most likely summation shadows. Clinical evaluation for trauma is advised. Otherwise Normal height and alignment. No visible fracture or subluxation. The dens is intact. DISK SPACES: Narrowing of the disc C5-6-6, C6-C7 and C7-T1. Multilevel facet joint disease. Multileve l uncovertebral joint osteoarthritic changes. PARASPINOUS SOFT TISSUES: No prevertebral soft tissue swelling. IMPRESSION: No acute osseous abnormality cervical spine. Minimal anterolisthesis at the level of C3-C4 and C4-C5. Multilevel degenerative disc disease. Reviewed, dictated and finalized at location A. IMPRESSION: No acute osseous abnormality cervical spine. Minimal anterolisthesis at the lev el of C3-C4 and C4-C5. Multilevel degenerative disc disease.
--- NOTE | ~2024-02-18 | XR_ITS ---
3 VIEWS LUMBAR SPINE Ordering provider: Kerri Burnett History: . M54.16 - Radiculopathy, lumbar region . Comparison: None. FINDINGS: VERTEBRAL BODIES: No visible fracture or subluxation. Reversal of lordosis which may indicate muscle spasm. DISK SPACES: Narrowing of the disc L1-L2, L2-L3, L3-L4, L4-L5 and L5-S1. Facet joint disease at the l evel of L4-L5 and L5-S1. SOFT TISSUES: Normal. Stent graft is noted in the aorta and iliac arteries. IMPRESSION: No acute osseous abnormality lumbar spine. Multilevel degenerative disc disease. Reviewed, dictated and finalized at location A.
[2024-02-18 09:23] LABS: Prostate Specific Antigen < 0.1 ng/mL (< OR = 4.0)
[2024-02-21 18:44] LABS: Testosterone Total 15 ng/dL (250-1100)
== END 2024-02-18 08:20 | disposition home or self-care (01) ==
PROVIDERS: PCP Student in an Organized Health Care Education/Training Program; Referring Provider Neurological Surgery; Visit Provider Urology
DX: M43.12 Spondylolisthesis, cervical region (principal); M51.36 Other intervertebral disc degeneration, lumbar region; C61 Malignant neoplasm of prostate; M50.322 Other cervical disc degeneration at C5-C6 level; M50.323 Other cervical disc degeneration at C6-C7 level; M50.33 Other cervical disc degeneration, cervicothoracic region
CPT/HCPCS: 36415; 72050; 72110; 84153; 84403

== ENCOUNTER 2024-02-25 13:39 | Outpatient (CLI) | payer MEDICARE, SELFPAY ==
--- NOTE | ~2024-02-25 | MR_ITS ---
EXAMINATION: MR lumbar spine wo con DATE: 02/25/2024 14:44 INDICATION: Lumbar radiculopathy TECHNIQUE: Magnetic resonance imaging (MRI) of the lumbar spine was performed without intravenous con trast. Sequences included sagittal T2-weighted FSE, sagittal T2-weighted FS FSE, sagittal T1-weighted FSE, and axial T2-weighted FSE. COMPARISON: Lumbar spine radiographs dated 02/18/2024, PET/CT dated and MRI dated FINDINGS: There is prominent metallic magnetic field artifact centered in the soft tissues anterior to the lumb ar spine correspond to an aortobiiliac stent graft. This obscures margins towards portions of the ant erior aspect of the lumbar and lower thoracic spine. Alignment is normal. There is straightening of t he normal lumbar lordosis. 4 mm retrolisthesis L5 on S1. Vertebral body heights are normal. Severe di sc height loss at L4-L5 and L5-S1 with associated low signal intensity Modic type III degenerative en dplate changes with corresponding sclerosis evident on prior PET/CT. No pathologic marrow replacing p rocess. There is additional moderate disc height loss at L3-L4 and mild disc height loss at L1-L2 and L2-L3. The conus medullaris terminates at L1. There is normal signal in the caudal spinal cord. Ther e are few bilateral small T2 hyperintense renal cysts. Paravertebral soft tissues are otherwise unrem arkable. The following disc levels are specifically discussed: T12-L1: The disc does not extend beyond the endplate margin. There is mild bilateral facet joint oste oarthritis. There is no neural foraminal stenosis. There is no central canal stenosis. L1-L2: Disc is minimally bulging. There is mild bilateral facet joint osteoarthritis. There is no johnny ral foraminal stenosis. There is no central canal stenosis. L2-L3: Disc is mildly bulging with associated left foraminal zone disc protrusion There is moderate b ilateral facet joint osteoarthritis. There is mild left and minimal right neural foraminal stenosis. There is minimal central canal stenosis. L3-L4: Disc is bulging. There is moderate right and moderate to severe left facet joint osteoarthriti s. There is mild bilateral neural foraminal stenosis. There is mild central canal stenosis with mild narrowing of the left and right lateral recesses. L4-L5: Posterior disc osteophyte complex. There is hypertrophy of the ligamentum flavum. There is sev ere left and moderate to severe right facet joint osteoarthritis. There is moderate right and moderat e to severe left neural foraminal stenosis. There is mild central canal stenosis. L5-S1: Disc is bulging with superimposed annular fissure and central disc extrusion with disc materia l extending up to 6 mm caudal to the level of the superior endplate of S1. There is severe bilateral facet joint osteoarthritis. There is severe bilateral neural foraminal stenosis. There is no central canal stenosis. IMPRESSION: 1. No significant change in severe lower lumbar predominant spondylosis. Reviewed, dictated and finalized at location B.
--- NOTE | ~2024-02-25 | MR_ITS ---
EXAMINATION: MR cervical spine wo con DATE: 02/25/2024 14:44 INDICATION: Cervical spondylolisthesis with neck pain TECHNIQUE: Magnetic resonance imaging (MRI) of the cervical spine was performed without intravenous c ontrast. Sequences included sagittal T2-weighted FSE, sagittal T2-weighted FS FSE, sagittal T1-weight ed FSE, axial MERGE and axial T2-weighted FSE. COMPARISON: 02/27/2023 FINDINGS: 14 degrees upper thoracic levoscoliosis with 10 degree cervicothoracic dextrocurvature. There is mild reversal of the normal cervical lordosis. 2-3 mm anterolisthesis C3 on C4 and non to mm anterolisthe sis C4 on C5 and C5 on C6. Vertebral body heights are normal. Severe disc height loss with fibrovasc ular degenerative endplate changes at T5 C6 and without degenerative endplate changes at C6-C7. Moder ate disc height loss at C4-C5 and mild disc height loss at C3-C4, C7-T1 and T2-T3 and T3-T4. Cord sig nal intensity is normal. Cervical soft tissues are unremarkable. The following disc levels are specif ically discussed: C2-C3: Disc is bulging. There is mild right uncovertebral joint osteoarthritis. There is left and sev ere right facet joint osteoarthritis. There is mild right neural foraminal stenosis. There is mild ce ntral canal stenosis. C3-C4: Disc is bulging with annular fissure and small central disc extrusion with disc material exten ding up to 3 mm cephalad to the level of the inferior endplate of C3. There is moderate left and mild right uncovertebral joint osteoarthritis. There is severe bilateral facet joint osteoarthritis. Ther e is moderate left and mild right neural foraminal stenosis. There is mild central canal stenosis. C4-C5: Disc is mildly bulging. There is moderate right and mild left uncovertebral joint osteoarthrit is. There is severe left and moderate to severe right facet joint osteoarthritis. There is mild to mo derate left and mild right neural foraminal stenosis. There is mild central canal stenosis. C5-C6: Disc is bulging with annular fissure and disc extrusion with disc material extending up to 3 m m cephalad to the level of the inferior endplate of C5. There is severe bilateral uncovertebral joint osteoarthritis. There is mild right and severe left facet joint osteoarthritis. There is moderate ri ght and mild to moderate left neural foraminal stenosis. There is mild central canal stenosis with mi ld indentation of the central ventral surface of the cord. C6-C7: Disc is bulging with annular fissure and superimposed right paracentral disc extrusion with di sc material extending up to 2 mm caudal to the level of the superior endplate of C7. There is severe bilateral uncovertebral joint osteoarthritis. There is mild bilateral facet joint osteoarthritis. The re is mild bilateral neural foraminal stenosis. There is mild central canal stenosis. C7-T1: The disc does not extend beyond the endplate margin. There is mild bilateral uncovertebral nevin nt osteoarthritis. There is mild right and moderate left facet joint osteoarthritis. There is no neur al foraminal stenosis. There is no central canal stenosis. IMPRESSION: 1. Severe cervical spondylosis. Reviewed, dictated and finalized at location B.
== END 2024-02-25 13:40 ==
LOC: GOSHIMG 13:40
PROVIDERS: PCP Student in an Organized Health Care Education/Training Program; Visit Provider Neurological Surgery
DX: M47.26 Other spondylosis with radiculopathy, lumbar region (principal); M47.22 Other spondylosis with radiculopathy, cervical region
CPT/HCPCS: 72141; 72148

== ENCOUNTER 2024-04-05 10:17 | Outpatient (CLI) | payer MEDICARE, SELFPAY ==
--- NOTE | ~2024-04-05 | XR_ITS ---
Right Shoulder Technique: AP and axillary views were obtained. Clinical History: Injury Findings: No fracture or dislocation is seen. Osseous alignment is anatomic. There is moderate to adv anced degenerative change of the glenohumeral joint. AC joint intact. Soft tissues are unremarkable. Impression: Moderate to advanced glenohumeral joint degenerative change. Reviewed, dictated and finalized at location . Impression: Moderate to advanced glenohumeral joint degenerative change.
== END 2024-04-05 10:18 ==
LOC: MICIMG 10:20
PROVIDERS: PCP Student in an Organized Health Care Education/Training Program; Visit Provider Nurse Practitioner Family
DX: M19.011 Primary osteoarthritis, right shoulder (principal)
CPT/HCPCS: 73030

== ENCOUNTER 2024-05-25 07:07 | Outpatient (CLI) | payer MEDICARE, SELFPAY ==
[2024-05-25 08:12] LABS: Prostate Specific Antigen < 0.1 ng/mL (< OR = 4.0)
[2024-05-27 19:09] LABS: Testosterone Total 81 ng/dL (250-1100)
== END 2024-05-25 07:08 | disposition home or self-care (01) ==
LOC: ANHLAB 07:09
PROVIDERS: PCP Student in an Organized Health Care Education/Training Program; Visit Provider Urology
DX: C61 Malignant neoplasm of prostate (principal)
CPT/HCPCS: 36415; 84153; 84403

== ENCOUNTER 2024-06-17 08:43 | Outpatient (CLI) | payer MEDICARE, SELFPAY ==
[2024-06-17 10:04] LABS: Albumin Level 4.2 g/dL (3.5-5.1); Anion Gap 11 mmol/L (4-12); Blood Urea Nitrogen 14 mg/dL (9-20); Calcium 9.8 mg/dL (8.4-10.2); Carbon Dioxide 27 mmol/L (22-30); Chloride 100 mmol/L (98-107); Estimated Glomerular Filt Rate > 60; Glucose 218 mg/dL (65-110); Phosphorus 3.9 mg/dL (2.5-4.5); Potassium 4.5 mmol/L (3.4-5.0); Sodium 138 mmol/L (137-145)
[2024-06-17 10:06] LABS: Creatinine Urine 257.2 mg/dL
[2024-06-17 10:26] LABS: Total Protein Urine Random > 600 mg/dL; Ur Ttl Prot Creatinine Ratio > 2.33 mg/mg (0-0.20)
== END 2024-06-17 08:44 | disposition home or self-care (01) ==
PROVIDERS: PCP Student in an Organized Health Care Education/Training Program; Visit Provider Internal Medicine Nephrology
DX: E11.29 Type 2 diabetes mellitus with other diabetic kidney complication (principal); R80.9 Proteinuria, unspecified
CPT/HCPCS: 36415; 80069; 82570; 84156

== ENCOUNTER 2024-07-28 09:08 | Outpatient (CLI) | payer MEDICARE, SELFPAY ==
--- NOTE | ~2024-07-28 | US_ITS ---
EXAMINATION: US arterial duplex [facility] DATE: 07/28/2024 10:40 INDICATION: Medication at the bilateral lower extremities TECHNIQUE: Multiple grayscale and Doppler ultrasound images of the arteries of the bilateral lower li mbs were obtained. COMPARISON: None FINDINGS: There are monophasic waveforms throughout the arteries of the left lower limb. The systolic upstrokes remain normal, <0.25 seconds. Peak systolic velocities in the left lower limb range from 50 cm/s at the distal superficial femoral artery to 15.9 cm/s at the proximal anterior tibial artery. There is a biphasic waveform at the right common femoral artery and proximal superficial femoral mike ry with monophasic waveforms in the more distal arteries, also with normal systolic upstrokes through out. Peak systolic velocities range from 54 cm/s at the proximal right common femoral artery decreasi ng to 27 cm/s at the proximal peroneal artery IMPRESSION: 1. Monophasic waveforms throughout the left lower limb and in the right lower limb below level of the proximal superficial femoral artery suggesting more proximal aortobiiliac peripheral arterial occlus pablo disease. There is however no significant delay in the peak systolic upstrokes throughout the mike tirso of both lower limbs. Reviewed, dictated and finalized at location A. 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 Monophasic waveforms throughout the left lower limb and in the right lower l imb below level of the proximal superficial femoral artery suggesting more prox imal aortobiiliac peripheral arterial occlusive disease. There is however no si gnificant delay in the peak systolic upstrokes throughout the arteries of both lower limbs.
--- NOTE | ~2024-07-28 | US_ITS ---
US arterial ankle brachial ind INDICATION: Claudication TECHNIQUE: Segmental pressures and plethysmographic and Doppler waveforms of the brachial and lower e xtremity arteries were obtained. COMPARISON: None. FINDINGS: Right and left brachial artery pressures of 159 mm Hg and 153 mm Hg, respectively, are concordant (no rmal difference <= 30 mmHg). The right ankle-brachial index (NEETA) is 0.7 (normal >= 0.9-1.0). The right great toe-brachial index ( TBI) is 0.33 (normal >= 0.60). The left NEETA is 0.58. The left TBI is 0.3. IMPRESSION: 1. Diminished bilateral ankle and toe brachial indices consistent with peripheral arterial disease. Reviewed, dictated and finalized at location B. 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 Diminished bilateral ankle and toe brachial indices consistent with peripher al arterial disease.
== END 2024-07-28 09:09 | disposition home or self-care (01) ==
PROVIDERS: PCP Student in an Organized Health Care Education/Training Program; Visit Provider Student in an Organized Health Care Education/Training Program
DX: I77.89 Other specified disorders of arteries and arterioles (principal)
CPT/HCPCS: 93922; 93925

== ENCOUNTER 2024-08-09 07:09 | Outpatient (CLI) | payer MEDICARE, SELFPAY ==
--- NOTE | ~2024-08-09 | CT_ITS ---
CTA abdomen pelvis Ordering provider: Jojo Delgadillo History: . AAA,MALIGNANT NEOPLASM OF PROSTATE . Comparison: August 23, 2022 Technique: CT angiogram abdomen and pelvis was performed following timed intravenous injection of con trast. Thin slice axial images and reformatted coronal images were obtained. Three dimensional reform atted images of the chest were also obtained using a [employer] workstation. . Automated exposure contro l and iterative reconstruction technique were employed. The dose-length product was 1550.24 mGy-cm. 100 mL Omnipaque 350 was given IV. FINDINGS: VISUALIZED LOWER CHEST: Mild dependent atelectasis bilaterally. UPPER ABDOMINAL ORGANS: Liver: Normal. Gallbladder: Status post cholecystectomy. Spleen: Normal. Stomach/duodenum: Normal. Pancreas: Atrophic. Adrenals: Normal. Kidneys: Hypodensity in the right kidney lower pole which may indicate infection or infarct. Small re nal cyst seen in the upper and mid poles of the right kidney. Hypodensity in the left kidney lower pole most likely due to infection or infarct. Tiny cysts in the left kidney mid and upper pole. No Hydronephrotic changes with no ureteric stones. Hyperdensity in the left kidney upper and lower pole most likely small hemorrhagic cysts. PELVIC ORGANS: The bladder is underfilled with thickened wall. Evaluation for cystitis advised. Brach ytherapy is seen in the area of the prostate. Minimal fat stranding seen around the rectum and prosta te the same area. BOWEL AND MESENTERY: Colon: Mild diverticulosis without diverticulitis . Normal appendix. Small Bowel: Normal. No obstruction. Peritoneum/mesentery: No free air or free fluid. No mesenteric lymphadenopathy. RETROPERITONEUM: No retroperitoneal lymphadenopathy. ABDOMINAL AORTA: Aneurysmal dilatation is seen. stent graft in the aorta and iliac arteries. No defin ite leak is noted. ILIAC ARTERIES AND BRANCHING VESSELS: Normal in caliber. RENAL ARTERIES: Minimal atherosclerotic changes.. Normal caliber. CELIAC AXIS AND BRANCHING VESSELS: Slight narrowing at the origin of the celiac artery. SUPERIOR MESENTERIC ARTERY AND BRANCHING VESSELS: Normal. INFERIOR MESENTERIC ARTERY: Embolization is seen VISUALIZED FEMORAL ARTERIES: Stents are noted Bilaterally. MUSCULOSKELETAL: Superficial soft tissues: Bilateral fat containing inguinal hernias. The superficial soft tissues are normal. Bones: Age appropriate degenerative changes of the spine. Sclerotic changes seen in the inferior endp late of L4 and both endplates of L5. This may be degenerative. IMPRESSION: 1. Abdominal aneurysm with stent graft is unchanged from previous examination. 2. No definite acute abdominal process. Reviewed, dictated and finalized at location A. 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
--- NOTE | ~2024-08-09 | NM_ITS ---
EXAMINATION: NM bone scan whole body DATE: 08/09/2024 11:23 INDICATION: Malignant neoplasm of the prostate TECHNIQUE: 24.5 mCi Tc-99m HDP was administered intravenously. Delayed whole-body scintigrams were o btained. COMPARISON: Bone scan dated 09/05/[address] abdomen and pelvis dated 08/19/2024 FINDINGS: Again seen is prominent likely degenerative discogenic calcification at L4-L5 and L5-S1 with correspo nding severe disc height loss with Modic type III sclerotic endplate changes on prior CT. Additional likely discogenic mild uptake at C6-C7 and moderate likely degenerative uptake such with severe facet osteoarthritis on the great left at C5-C6. Photopenic defect associated with a left total knee arthr oplasty. Additional likely degenerative joint centered uptake most prominent at the bilateral first c arpal metacarpal joints and to lesser degree at the bilateral acromioclavicular, sternoclavicular, ri ght glenohumeral, right knee and at the bilateral feet and ankles. Significant decrease in the previo usly prominent, now mild uptake at the left ischial tuberosity and nearly indiscernible the at the ri ght ischial tuberosity where there are corresponding sclerotic lesions on CT consistent with metastat ic prostate cancer. No new lesions suspicious for metastatic disease. IMPRESSION: 1. Decrease in now minimal to mild uptake associated with sclerotic lesions at the left and to lesser degree right ischial tuberosities consistent with likely response to treatment of metastatic prostat e cancer. No new suspicious bone lesions identified to suggest progression of disease. 2. No significant interval change in likely degenerative discogenic and joint centered uptake in the axial and appendicular skeleton. Reviewed, dictated and finalized at location A. ITY CONTROL REPRESENTATIVE IMPRESSION: 1. Decrease in now minimal to mild uptake associated with sclerotic lesions at the left and to lesser degree right ischial tuberosities consistent with likely response to treatment of metastatic prostate cancer. No new suspicious bone le sions identified to suggest progression of disease. 2. No significant interval change in likely degenerative discogenic and joint c entered uptake in the axial and appendicular skeleton.
[2024-08-09 07:41] LABS: Estimated Glomerular Filt Rate > 60
== END 2024-08-09 07:10 | disposition home or self-care (01) ==
PROVIDERS: PCP Student in an Organized Health Care Education/Training Program
DX: C61 Malignant neoplasm of prostate (principal); I71.40 Abdominal aortic aneurysm, without rupture, unspecified
CPT/HCPCS: 74174; 78306; A9503; Q9967

== ENCOUNTER 2024-11-01 08:10 | Outpatient (CLI) | payer MEDICARE, SELFPAY ==
[2024-11-01 09:00] LABS: Albumin Level 3.8 g/dL (3.5-5.1); Anion Gap 9 mmol/L (4-12); Blood Urea Nitrogen 21 mg/dL (9-20); Calcium 9.1 mg/dL (8.4-10.2); Carbon Dioxide 26 mmol/L (22-30); Chloride 102 mmol/L (98-107); Estimated Glomerular Filt Rate > 60; Glucose 167 mg/dL (65-110); Phosphorus 3.5 mg/dL (2.5-4.5); Potassium 4.5 mmol/L (3.4-5.0); Sodium 137 mmol/L (137-145)
[2024-11-01 09:32] LABS: Creatinine Urine 79.6 mg/dL
[2024-11-01 09:41] LABS: Total Protein Urine Random 299 mg/dL; Ur Ttl Prot Creatinine Ratio 3.76 mg/mg (0-0.20)
== END 2024-11-01 08:11 | disposition home or self-care (01) ==
PROVIDERS: PCP Student in an Organized Health Care Education/Training Program; Referring Provider Internal Medicine Cardiovascular Disease; Visit Provider Internal Medicine Nephrology
DX: R80.9 Proteinuria, unspecified (principal); E11.59 Type 2 diabetes mellitus with other circulatory complications; I15.2 Hypertension secondary to endocrine disorders
CPT/HCPCS: 36415; 80069; 82570; 84156

== ENCOUNTER 2024-12-02 10:31 | Outpatient (CLI) | payer MEDICARE, SELFPAY ==
--- OUTSIDE RECORDS SUMMARY | 2024-12-02 11:25 | XMS_ITS | Encounter Summary ---
Author Organization [facility] Address [address] [place] [address] Care Team Providers Care Instructor Substitute Cosmetology Name Role Phone Stephen Garcia DO Primary Care Provide r Reason for Visit * Reason Comments New Patient PAD * Consultation (Routine) - Closed Specialty Diagnoses / Procedures Referred By [facility] Referred To Contact Vascular Surgery Diagnoses Claudication of both lower extremities Stephen Garcia DO [address] [place] [address] Phone: tel: fax: [facility] at [address] [address] Phone: tel: fax: Referral ID Status Reason Start Date Expiration Date V isits Requested Visits Authorized [id number] Closed Specialty Services Required 11/16/2024 12/16/2025 1 1 Encounter Details Date Type Department Care Team (Late st Contact Info) Description 12/01/2024 9:15 AM CDT Office Visit [facility] at [address] [phone] Eros Delacruz MD [address] [facility] [address] MIRANDA [address] [place] [id number] Claudication of both lower extremities Social History Tobacco Use Types Packs/Day Years Used Date Smoking Tobacco: Former Smokeless Tobacco: Never Alcohol Use Standard Drinks/Week Comments Yes 0 (1 standard drink = 0.6 oz pur e alcohol) Sex and Gender Information Value Date Recorded Sex Assigned at Not on file Legal Sex Male 2:49 AM CHEMICAL 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 Gender Identity Male 04/10/2020 12:23 PM CDT Sexual Orientation Straight 04/10/2020 12 :23 PM CDT documented as of this encounter Last Filed Vital Signs Vital Sign Reading Time Taken Comments Blood Pressure 134/66 12/01/2024 9:33 AM CDT Pulse 60 12/01/2024 9:33 AM CDT Temperature - - Respiratory Rate - - Oxygen Saturation 97% 12/01/2024 9:33 AM CDT Inhaled Oxygen Concentration - - Weight 89.4 kg (197 lb) 12/01/2024 9:33 AM CDT Height 182.9 cm (6') 12/01/2024 9:33 AM CDT Body Mass Index 26.72 12/01/2024 9:33 AM CDT documented in this encounter Plan of Treatment Not on file documented as of this encounter Visit Diagnoses Diagnosis Claudication of both lower extremities documented in this encounter Historical Medications * This list may reflect changes made after this encounter. triamcinolone (KENALOG) 0.1 % ointment Apply topically 2 (two) times a day valACYclovir (VALTREX) 1 gram tablet Take by mouth guaiFENesin (ROBITUSSIN) 400 mg tablet Take 1 tablet (400 mg total) by mouth coenzyme Q10 200 mg capsule Take 1 capsule (200 mg total) by mouth daily added in this encounter Orders Outpatient Referral Count Last Ordered Date Fir st Ordered Date AMB REFERRAL TO VASCULAR SURGERY 1 12/02/19 25 documented in this encounter Care Teams Instructor Substitute Cosmetology Relationship Specialty Start Date End Date Stephen Garcia DO [address] [place] [address] PCP - General Family Medicine 03/28/22 documented as of this encounter
--- OUTSIDE RECORDS SUMMARY | 2024-12-02 11:25 | XMS_ITS | Clinical Summary ---
Author Organization [facility] Address [facility] [place] [address] Care Team Providers Care Bag Valver Name Role Phone Stephen Garcia Primary Care Provider + Allergies Active Allergy Reactions Criticality Noted Date Comments Allopurinol Other (see comment) 02/03/2024 Severe muscle pain Fenofibrate Unknown High 11/13/2021 Icosapent Ethyl (Epa Ethyl Christine) (Fish) Myalgias Medium 10/21/2023 Statins Unknown High 11/13/2021 Medications amLODIPine 10 MG tablet Take 1 tablet (10 mg total) by mouth daily. Active aspirin EC (ASPIRIN EC) 81 MG tablet Take 1 tablet (81 mg total) by mouth daily. Active evolocumab 140 MG/ML injection (PEN) Inject 1 mL (140 mg total) into the skin. 07/31/20 21 Active guaiFENesin 400 MG Tab Take 400 mg by mouth. Active lisinopril 20 MG tablet Take 1 tablet (20 mg total) by mouth 2 (two) times daily. 12/15/19 21 Active ONETOUCH VERIO test strip 2 (two) times daily. 10/20/19 22 Active melatonin 5 MG tablet Take 1 tablet (5 mg total) by mouth nightly as needed. Active Biotin 1000 MCG Tab Take 1,200 tablets by mouth daily. Active Lancet Devices (ONETOUCH DELICA PLUS LANCING) [facility] USE TO MONITOR BLOOD GLUCOSE 2 TO 3 TIMES DAILY 05/20/20 22 Active tamsulosin (FLOMAX) 0.4 MG Cap Take 1 capsule (0.4 mg total) by mouth daily. Active alendronate (FOSAMAX) 70 MG tablet Take 1 tablet (70 mg total) by mouth once a week. Active oxyCODONE-aceta minophen (PERCOCET) 10-325 MG tablet Take by mouth every 4 (four) hours as needed. Active triamcinolone (KENALOG) 0.1 % ointment RUB IN WELL TWICE DAILY TO RED AREAS UNTIL CLEAR 09/02/19 24 Active amoxicillin (AMOXIL) 500 MG capsule Take 4 capsules (2,000 mg total) by mouth once. 12/09/19 24 Active fluticasone propionate (FLONASE) 50 MCG/ACT nasal spray Active nitroglycerin (NITROSTAT) 0.[address] 1 tablet (0.4 mg total) under the tongue every 5 (five) minutes as needed for Chest Pain. Active sildenafil (VIAGRA) 100 MG tablet Take 1 tablet (100 mg total) by mouth daily as needed for Erectile Dysfunction. Active psyllium (METAMUCIL 4 IN 1 FIBER) 51.7 % packet Take 1 packet by mouth 3 (three) times daily. Active Docusate Sodium (STOOL SOFTENER OR) Take 1 capsule by mouth daily. Active Coenzyme Q10 (COQ10 OR) Take 200 mg by mouth daily. Active pregabalin (LYRICA) 75 MG capsuleIndicati ons:RLS (restless legs syndrome) TAKE 2 CAPSULES BY MOUTH EVERY NIGHT 1 TO 2 HOURS BEFORE BEDTIME 180 capsule 09/27/19 25 Active valACYclovir (VALTREX) 1 g tabletIndicatio ns:HSV infection Take 2 tabs twice daily for one day at onset of symptoms. 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 180 tablet 3 03/18/20 25 Active Turmeric, Curcuma Longa, Powder Take by mouth Active hydroCHLOROthia zide (MICROZIDE) 12.5 MG capsule Take 1 capsule (12.5 mg total) by mouth daily. 10/26/19 25 026 Active albuterol sulfate HFA 108 (90 Base) MCG/ACT inhalerIndicati ons:Pulmonary emphysema, unspecified emphysema type (CMS/HCC HHS/HCC) Inhale 2 puffs into the lungs every 6 (six) hours as needed for Wheezing (Also use before exercise). 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 30 tablet 2 11/17/19 25 Active metFORMIN 1000 MG tablet Take 1 tablet (1,000 mg total) by mouth 2 (two) times a day. 025 Discontinued(Re order) Lancets (ONETOUCH DELICA PLUS [id number]) Misc 2 (two) times daily. 08/23/20 21 025 Discontinued(Du plicate Med) allopurinol (ZYLOPRIM) 300 MG tabletIndicatio ns:Chronic gout without tophus, unspecified cause, unspecified site TAKE 1 TABLET(300 MG) BY MOUTH DAILY 90 tablet 1 04/02/20 23 Discontinued(Pa tient Discharge) naproxen sodium (ANAPROX) 220 MG tablet Take 1 tablet (220 mg total) by mouth 2 (two) times daily with meals. 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 30 tablet 2 11/17/19 25 025 Discontinued(Si de effects) Active Problems Problem Noted Date Diagnosed Date Hepatic cirrhosis, unspecifi ed hepatic cirrhosis type, unspecified whether ascites present (CMS/HCC HHS/HCC) 11/16/2024 Peripheral vascular disease 10/20/2024 Prostate cancer metastatic to bone (CMS/HCC HHS/ HCC) 02/03/2024 Other emphysema ([facility]) 07/08/2023 Bulging lumbar disc 11/13/2021 H/O endoscopic sinus surgery 11/13/2021 History of left knee replacement 11/13/2021 Pulmonary HTN ([facility]) 04/12/2020 SHAW (dyspnea on exertion) 10/05/2019 Gastroesophageal reflux disease 10/18/2015 Overview (11/13/2021): Gastroesophageal reflux disease, esophagitis presence not specified Sick sinus syndrome ([facility]) 10/18/2015 Overview (11/13/2021): Sick sinus syndrome Mixed diabetic hyperlipidemi a associated with type 2 diabetes mellitus ([facility]) 10/18/2015 Overview (05/21/2022): DM type 2 with diabetic dyslipidemia Dyslipidemia associated with type 2 diabetes mellitus ([facility]) 02/08/2015 Overview (11/13/2021): DM (diabetes mellitus) DM type 2 with diabetic dyslipidemia History of abdominal aortic aneurysm (AAA) repai r 02/08/2015 Overview (11/13/2021): S/P AAA (abdominal aortic aneurysm) repair Hypertension associated with diabetes ([facility]) 11/30/2012 Overview (11/13/2021): HYPERTENSION NOS Resolved Problems Problem Noted Date Diagnosed Date Resolved Date Statin myopathy 10/29/2019 11/15/2021 Bradycardia 02/08/2015 11/15/2021 Overview (11/13/2021): Bradycardia Abdominal aortic aneurysm (A AA) without rupture 09/17/2012 11/15/2021 Encounters Date Type Department Care Team Description 11/16/2024 9:00 AM CDT Office Visit [facility] [address] [phone] Stephen Garcia DO Diabetes (3 month follow. ); Vascular Lab Study (SCAN) (The patient was not happy with DR. Batista and would like to discuss a second opinion. ) 11/16/2024 Scan [facility] Scanned, [facility] 11/16/2024 Travel 11/01/2024 Scan [facility] Scanned, [facility] Lab (SCAN) 10/20/2024 2:[address] Office Visit [address] [address] Kvng Batista MD Peripheral Vascular Disease 10/20/2024 Travel 10/13/2024 Telephone [facility] Internal [address] [phone] Stephen Garcia DO Medication Request from Last 3 Months Immunizations Name Administration Dates Next Due Fluzone High Dose (IIV, trivalent, 0.5mL) 2023 Fluzone High Dose - >Age 65 (Prefilled Syringe) 06/02/2023,06/13/2022 Influenza (Generic) 06/17/2018,06/01/2017 MODERNA COVID-19 (12+) MRNA, LNP-S, PF, 100 MCG/ 0.5 ML DOSE 06/25/2021,11/11/2020,10/14/2020 MODERNA COVID-19 (APPLIED MATHEMATICIAN FABRICE KATHLEEN), MRNA, LNP-S, PF, 50 MCG/ 0.25 ML DOSE 12/17/2021 PFIZER COVID-19 BIVALENT (12 +) mRNA, LNP-S, PF, 30 MCG/0.3 ML DOSE 05/21/2022 Pneumococcal (Pneumovax 23) 10/09/2017 Pneumococcal (Prevnar 13) 06/19/2020 Shingrix 01/23/2022,11/22/2021 Family History Medical History Relation Comments Diabetes Brother 1 Heart Disease Brother 2 Arthritis Brother 3 Heart Disease Brother 3 Alcohol Abuse Father Heart Disease Father Arthritis Mother Diabetes Mother Heart Disease Mother Hypertension Mother Arthritis Sister 1 Depression Sister 1 Diabetes Sister 1 Arthritis Sister 2 Cancer Sister 2 Depression Sister 2 Heart Disease Sister 2 Heart Disease Sister 3 Relation Status Comments Brother 1 Brother 2 Brother 3 Father Mother Sister 1 Sister 2 Sister 3 Social History Tobacco Use Types Packs/Day Years Used Date Smoking Tobacco: Former Cigarettes 1.5 25 0 09/01/1974 - 09/01/1999 Passive Smoke Exposure: Past Smokeless Tobacco: Never Tobacco Cessation:Counseling Given: Not Answered Alcohol Use Standard Drinks/Week Comments Not Currently 0 (1 standard drink = 0.6 oz pur e alcohol) PHQ-2 Answer Date Recorded Patient Health Questionnaire-2 Score 0 11/16/2024 Sex and Gender Information Value Date Recorded Sex Assigned at Male 10/20/2024 2:[address] Legal Sex Male 5:26 PM CDT Gender Identity Male 11/12/2021 3:04 PM CDT Sexual Orientation Straight 11/12/2021 3: 04 PM CDT Last Filed Vital Signs Vital Sign Reading Time Taken Comments Blood Pressure 116/76 11/16/2024 9:27 AM CDT Pulse 59 11/16/2024 9:27 AM CDT Temperature 36.4 C (97.6 F) 11/16/2024 9:27 AM CDT Respiratory Rate 16 11/16/2024 9:27 AM CDT Oxygen Saturation 97% 11/16/2024 9:27 AM CDT Inhaled Oxygen Concentration - - Weight 90.1 kg (198 lb 9.6 oz) 11/16/2024 9:27 A M CDT Height 182.9 cm (6') 11/16/2024 9:27 AM CDT Body Mass Index 26.94 11/16/2024 9:27 AM CDT Plan of Treatment Upcoming Encounters Date Type Department Care Team (Late st Contact Info) Description 02/22/2025 9:00 AM CDT Office Visit [facility] Family & Internal Medicine [address] [phone] Stephen Garcia, DO [address] [place] [address] 04/28/2025 11:00 AM CDT Office Visit [facility] [address] [place], [place] [phone] Kvng Batista MD [facility]. [facility] [address] [place], [place] [id number] Health Maintenance Due Date Last Done Comments Kidney Health Evaluation 1950 Annual Medicare Wellness Visit 2017 Lipid Panel 02/02/2025 02/03/2024, 10/03, 07/08/2023 Hemoglobin A1C 05/19/2025 11/16/2024, 08/01, 05/12/2024, Additional history exists RSV Immunization or 60+ Years (1 - Risk 60-74 years 1-dose series) 11/16/2025 Postponed fro m 2012 (Going to Outside Clinic) COVID-19 Vaccine (8 - Moderna risk 2023- season) 2026 06/27/2024, 06/02/2023, 05/21/2022, Additional history exists Postponed from 12/26/2024 (Future Appointment) Diabetes: Retinopathy Eye Exam 05/31/2026 05/31/2024 DTaP, Tdap and Td Vaccines (1 - Tdap) 06/01/2030 Postponed from 1971 (No Insurance Coverage) Colorectal Cancer Screening Colonoscopy (10 Years) 04/04/2031 04/04/2021, 04/04/2021 AAA SCREENING Completed 04/21/2014, 04/02, 10/06/2013, Additional history exists Pneumococcal Vaccine: 65+ Years Completed 06/19/2020, 10/09/2017 Zoster Vaccines Completed 01/23/2022, 11/22/2021 Hepatitis C Completed 08/09/2022, 1205/2022, 08/09/2022, Additional history exists PHQ-2 (Physician [place]) Completed 11/16/2024 Meningococcal B Vaccine Aged Out No l onger eligible based on patient's age to complete this topic Meningococcal Vaccine Aged Out No erma cher eligible based on patient's age to complete this topic RSV Immunizations Under 20 Months Aged Out No longer eligible based on patient's age to complete this topic Procedures Procedure Name Priority Date/Time Associated Diagnosis Comments COLLECT.CAPILLARY (FNGR,HEEL,EAR) Routine 11/16/2024 9:14 AM CDT Type 2 diabetes mellitus with diabetic microalbuminuria, without long-term current use of insulin ([facility]) HEMOGLOBIN, GLYCOSYLATED Routine 11/16/2024 Type 2 diabetes mellitus with diabetic microalbuminuria, without long-term current use of insulin ([facility]) OUTSIDE LAB (SCAN ORDER) 11/01/2024 DIABETIC RETINOPATHY EXAM (NEGATIVE)(SCAN ORDER) Routine 05/31/2024 LIPID PANEL Routine 02/03/2024 9:41 AM CDT Type 2 diabetes mellitus with other circulatory complication, without long-term current use of insulin Dyslipidemia associated with type 2 diabetes mellitus Hypertension associated with diabetes Hepatic cirrhosis, unspecified hepatic cirrhosis type, unspecified whether ascites present HEP C SCANNED ORDERS Routine 08/09/2022 COLONOSCOPY GENERIC (SCAN ORDER) 04/04/2021 from Last 3 Months or Most Recently Relevant to Health Maintenance Results * HEMOGLOBIN, GLYCOSYLATED (11/16/2024) HGB A1C 7.4 % [facility] 11/16/2024 us Stephen Garcia DO LABORATORY Final Re sult [facility] [address] [place] [address], * OUTSIDE LAB (SCAN ORDER) (11/01/2024) 11/01/2024 us [facility] Scanned SCANNING Final Resu lt * DIABETIC RETINOPATHY EXAM (NEGATIVE) (05/31/2024) [facility] Scanned SCANNING Final Resu lt [facility] * (ABNORMAL) LIPID PANEL (02/03/2024 9:41 AM CDT) CHOLESTEROL 159 <200 MG/DL 02/03/2024 2:49 PM CDT [facility] TRIGLYCERIDES 285(H) <150 MG/DL 02/03/2024 2:49 PM CDT [facility] HDL 54 >40 MG/DL 02/03/2024 2:49 PM CDT [facility] LDL-C 48 <100 MG/DL 02/03/2024 2:49 PM CDT [facility] VLDL CALCULATION 57(H) 5 - 28 MG/DL 02/03/2024 2:49 PM CDT [facility] CHOL/HDL RATIO 2.9 0.0 - 4.0 02/03/2024 2:49 PM CDT [facility] LDL/HDL 0.9 0.41 - 2.13 02/03/2024 2:49 PM CDT [facility] NON HDL CHOLESTEROL 105 <140 MG/DL 02/03/2024 2:49 PM CDT [facility] 02/03/2024 9:41 AM CDT Stephen Garcia DO LABORATORY Final Re sult [facility] [address] [facility] [place] [address], * HEP C SCANNED ORDERS (08/09/2022) [facility] Scanned SCANNING Final Resu lt [facility] * COLONOSCOPY GENERIC (04/04/2021) 04/04/2021 Narrative 04/04/2021 Ordered by an unspecified provider. us Documents Scanned SCANNING Final Result from Last 3 Months or Most Recently Relevant to Health Maintenance Insurance MEDICARE [employer] Care Teams Bag Valver Relationship Specialty Start Date End Date Stephen Garcia DO [address] [place] [phone] PCP - General FAMILY PRACTICE 11/15/21
--- OUTSIDE RECORDS SUMMARY | 2024-12-02 11:25 | XMS_ITS | Encounter Summary ---
Author Organization [facility] Address [address] [place] [address] Care Team Providers Care Spray Cementer Name Role Phone Neil Field MD Primary Care Provider + Encounter Details Date Type Department Care Team (Late st Contact Info) Description 09/03/2023 Lab Requisition [facility] - DermPath Lab [address] [place] [id number] Jim Oliva MD [address] [place] [address] Social History Tobacco Use Types Packs/Day Years Used Date Smoking Tobacco: Never Assessed Sex and Gender Information Value Date Recorded Sex Assigned at Not on file Gender Identity Not on file Sexual Orientation Not on file documented as of this encounter Plan of Treatment Not on file documented as of this encounter Procedures Procedure Name Priority Date/Time Associated Diagnosis Comments DERMATOPATHOLOGY Routine 09/02/2023 3:33 AM SOLAR APPLICATIONS DEVELOPMENT ENGINEER documented in this encounter Results * DERMATOPATHOLOGY (09/02/2023 3:33 AM SOLAR APPLICATIONS DEVELOPMENT ENGINEER) Case Report Dermatopathology Report Case: [id number] Authorizing Provider: Jim Oliva MD Collected: 09/02/2023 03:33 AM Ordering Location: [facility] - Received: 09/03/2023 06:49 AM DermPath Lab Pathologist: Jasmin Barclay MD Specimens: A) - Skin, left lat neck sup B) - Skin, left lat neck inf 9:21 AM [facility] DERMAT[facility]ATHOLOGY [facility] Amended Report Clerical error in laboratory, change in site for specimen B to left lateral neck inf. 9:21 AM [facility] DERMATOPATHOLOGY [facility] Final Diagnosis Specimen A. SKIN, left lat neck sup: BASAL CELL CARCINOMA, NODULAR TYPE (C44.41) Specimen B. SKIN, left lateral neck inf: BASAL CELL CARCINOMA, NODULAR TYPE (C44.41) 9:21 AM [facility] DERMATOPATHOLOGY [facility]ORATORY Amendment electronically signed by Jasmin Barclay MD on 11/10/2023 at 9:21 AM Clinical History A-B: AK vs. SCC 9:21 AM [facility] DERMATOPATHOLOGY [facility] Gross Description Specimen A: Received is one formalin filled container labeled with the patient's name and designated left lat neck sup. The specimen consists of a shave biopsy measuring 9x5x1 mm. Jar 0. Specimen B: Received is one formalin filled container labeled with the patient's name and designated left lateral neck inf. The specimen consists of a shave biopsy measuring 10x6x1 mm. Jar 0. 9:21 AM [facility] DERMATOPATHOLOGY [facility] Microscopic Description Specimen A. SKIN, left lat neck sup: Within the dermis there are aggregates of basaloid cells with a high nuclear to cytoplasmic ratio and peripheral palisading. Specimen B. SKIN, left lateral neck inf: Within the dermis there are aggregates of basaloid cells with a high nuclear to cytoplasmic ratio and peripheral palisading. 9:21 AM [facility] DERMATOPATHOLOGY [facility]ORATORY Disclaimer An external and internal positive and negative controls are appropriate for the histochemical, immunohistochemical and immunofluorescence stain(s) in this case (if any), except where stated explicitly. The performance characteristics of the stain(s) cited in this report were developed and its performance characteristic determined by the Dermatopathology Laboratory at [facility], directed by Dr. Gabe Cristina. These tests need not be, and therefore are not, approved by the [place] Food and Drug Administration. The tests are used for clinical purposes. Billing Codes Specimen Charges Stain Charges 98096 53750 1 1 9:21 AM [facility] DERMATOPATHOLOGY LABORATORY Embedded Images 9:21 AM [facility] DERMATOPATHOLOGY LABORATORY Pathology/Cytology TISSUE SPECIMEN FROM SKIN / Unknown 09/02/2023 3:33 AM SOLAR APPLICATIONS DEVELOPMENT ENGINEER 09/03/2023 6:49 AM SOLAR APPLICATIONS DEVELOPMENT ENGINEER Miscellaneous samples (specimen) TISSUE SPECIMEN FROM SKIN / Unknown 09/02/2023 3:33 AM SOLAR APPLICATIONS DEVELOPMENT ENGINEER 09/03/2023 6:49 AM SOLAR APPLICATIONS DEVELOPMENT ENGINEER Jim Oliva MD LAB - PATHOLOGY/CYTO LOGY ORDERABLES DERMATOPATHOLOGY LABORATORY [facility] - Department of Dermatology [facility] [address] [place] [address], [address] [phone] documented in this encounter Visit Diagnoses Not on filedocumented in this encounter Care Teams Spray Cementer Relationship Specialty Start Date End Date Neil Field MD [address] [address] PCP - General 03/03/18 documented as of this encounter
--- OUTSIDE RECORDS SUMMARY | 2024-12-02 11:25 | XMS_ITS | Clinical Summary ---
Author Organization [facility] Address [address] [place] [address] Care Team Providers Care Human Resources File Clerk Name Role Phone Neil Field MD Primary Care Provider + Source Comments [facility],non-owned Affiliates and Associated Physician Practices is amultiple site organization consisting of ambulatory clinics and hospital sitesin [place] and [place]. This disclosure is being madepursuant to the Care Everywhere program and may not contain all information available regarding this patient. Last updated 18.[facility] Social History Tobacco Use Types Packs/Day Years Used Date Smoking Tobacco: Never Assessed Sex and Gender Information Value Date Recorded Sex Assigned at Not on file Gender Identity Not on file Sexual Orientation Not on file Plan of Treatment Health Maintenance Due Date Last Done Comments COLOGUARD (AGES 45-75) - COL ON CA SCREENING 1952 COLON MONITORING 1952 COLONOSCOPY - COLON CA SCREENING 1952 CT COLONOGRAPHY - COLON CA SCREENING 1952 Colorectal Cancer Screening 1952 FIT - COLON CA SCREENING 1952 FLEX SIG - COLON CA SCREENING 1952 LIPID TESTING 1952 MEDICARE AWV 12 MONTHS 1952 HEPATITIS C SCREENING 08/25/1970 DTAP/TDAP/TD VACCINES (1 - Tdap) 1971 PNEUMOCOCCAL VACCINE 50+ (1 of 1 - PCV) 2002 ZOSTER VACCINE (1 of 2) 2002 COVID-19 VACCINE ( - 2023-2 5 season) 2024 INFLUENZA VACCINE (#1) 2024 DEPRESSION SCREENING 09/01/2024 Respiratory Syncytial Virus (RSV) Vaccine Pt: or over 60 yrs (1 - 1-dose 75+ series) 2027 HEPATITIS B VACCINE Aged Out No longe r eligible based on patient's age to complete this topic HIB VACCINE Aged Out No longer eligi ble based on patient's age to complete this topic HPV VACCINE Aged Out No longer eligi ble based on patient's age to complete this topic MENINGOCOCCAL (Group B) VACC INE SHARED DECISION-MAKING Aged Out No longer eligibl e based on patient's age to complete this topic MENINGOCOCCAL GROUPS A/C/Y/W VACCINE Aged Out No longer eligible b ased on patient's age to complete this topic Care Teams Human Resources File Clerk Relationship Specialty Start Date End Date Neil Field MD [address] [place] [address] [address] [place] [address] PCP - General 03/03/18
--- OUTSIDE RECORDS SUMMARY | 2024-12-02 11:25 | XMS_ITS | Encounter Summary ---
Author Organization [facility] Address [address] [place] [address] Care Team Providers Care Production Director Name Role Phone Stephen Garcia Primary Care Provide r Reason for Referral * MRI/CAT/PET Scan (Routine) - Authorized Specialty Diagnoses / Procedures Referred By [facility] Referred To Contact Radiology Diagnoses Abdominal aortic aneurysm (AAA) without rupture, unspecified part Procedures CTA Abdominal Aorta And Bilateral Iliofemoral Runoff Eros Delacruz MD [address] [place] [address] [address] MIRANDA [address] [place] [address] Phone: tel: fax: [address] [phone] Referral ID Status Reason Start Date Expiration Date V isits Requested Visits Authorized [id number] Authorized 12/01/2024 12/31/2025 1 1 * Diagnostic Imaging (Routine) - Authorized Specialty Diagnoses / Procedures Referred By [facility] Referred To Contact Diagnoses Atherosclerosis of [place] artery of both lower extremities with intermittent claudication Procedures US Arterial Doppler Lower Extremity Bilateral Eros Delacruz MD [address] [place] [address] DR MIRANDA [address] [place] [address] Phone: tel: fax: [facility] Building [address] [place] [phone] Referral ID Status Reason Start Date Expiration Date V isits Requested Visits Authorized [id number] Authorized 12/01/2024 12/31/2025 1 1 Encounter Details Date Type Department Care Team (Late st Contact Info) Description 12/01/[address] [facility] Vascular at [address] [place] [address] Eros Delacruz MD [address] [facility] [address] MIRANDA [address] [place] [address] Abdominal aortic aneurysm (AAA) without rupture, unspecified part (Primary Dx); Atherosclerosis of [place] artery of both lower extremities with intermittent claudication Social History Tobacco Use Types Packs/Day Years Used Date Smoking Tobacco: Former Smokeless Tobacco: Never Alcohol Use Standard Drinks/Week Comments Yes 0 (1 standard drink = 0.6 oz pur e alcohol) Sex and Gender Information Value Date Recorded Sex Assigned at Not on file 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 Gender Identity Male 04/10/2020 12:23 PM CDT Sexual Orientation Straight 04/10/2020 12 :23 PM CDT documented as of this encounter Plan of Treatment Scheduled Orders Name Type Priority Associated Diagnoses Orde r Schedule US Arterial Doppler Lower Extremity Bilateral Imaging Schedule Routine, Read Routine (OP Routine) Atherosclerosis of [place] artery of both lower extremities with intermittent claudication Expected: 12/15/2024, Expires: 06/02/2026 CTA Abdominal Aorta And Bilateral Iliofemoral Runoff Imaging Schedule Routine, Read Routine (OP Routine) Abdominal aortic aneurysm (AAA) without rupture, unspecified part Expected: 12/15/2024 (Approximate), Expires: 06/02/2026 documented as of this encounter Visit Diagnoses Diagnosis Abdominal aortic aneurysm (AAA) without rupture, unspecified part- Primary Atherosclerosis of [place] artery of both lower extremities with intermittent claudication documented in this encounter Care Teams Production Director Relationship Specialty Start Date End Date Stephen Garcia DO [address] [place] [address] PCP - General Family Medicine 03/28/22 documented as of this encounter
--- OUTSIDE RECORDS SUMMARY | 2024-12-02 11:25 | XMS_ITS | Clinical Summary ---
Author Organization [facility] [address] Address [address] [place] [address] Care Team Providers Care Sample Tester Name Role Phone Stephen Garcia DO Primary Care Provide r Allergies Active Allergy Reactions Criticality Noted Date Comments Fenofibrate High Blhelpq-Twh-Rzu Reductase Inhibitors High Icosapent Ethyl Muscle pain Medium 10/21/2023 Medications aspirin 81 mg tablet take 1 tablet (81MG) by oral route every day 0 12/01/19 13 Active omeprazole (PriLOSEC) 20 mg capsule take 1 capsule by oral route every day before a meal 0 0 02/09/20 15 Active metFORMIN (GLUCOPHAGE) 1,000 mg tablet take 1 tablet by oral route 2 times every day with morning and evening meals 0 0 02/09/20 15 Active nitroglycerin (NITROSTAT) 0.[address] 1 tablet (0.4 mg total) under the tongue every 5 (five) minutes as needed for chest pain May repeat dose q 5 min, up to 3 doses total 25 tablet 1 10/05/19 20 026 Active sildenafiL (VIAGRA) 100 mg tablet Take 1 tablet (100 mg total) by mouth as needed for erectile dysfunction Active pregabalin (LYRICA) 75 mg capsule Take 1-2 hours before bed daily 02/19/20 22 Active hydrALAZINE (APRESOLINE) 25 mg tablet TAKE 1 TABLET(25 MG) BY MOUTH THREE TIMES DAILY 90 tablet 11 07/26/20 22 Active Additional Information Patient not taking.Reported on 12/01/2024 alendronate (FOSAMAX) 70 mg tablet TAKE 1 TABLET BY MOUTH WEEKLY 03/06/20 23 Active tamsulosin (FLOMAX) 0.4 mg extended release capsule 1 capsule (0.4 mg total) Active oxyCODONE-acet aminophen (PERCOCET) 10-325 mg per tablet Take 1 tablet by mouth every 4 (four) hours as needed 03/17/20 23 Active Anoro Ellipta 62.5-25 mcg/actuation blister with device INHALE 1 PUFF INTO THE LUNGS DAILY Active amLODIPine (NORVASC) 10 mg tablet TAKE 1 TABLET(10 MG) BY MOUTH DAILY 90 tablet 3 01/12/20 24 Active biotin 1 mg tablet Take 1,200 tablets (1,200 mg total) by mouth daily Active melatonin 5 mg tablet Take 1 tablet (5 mg total) by mouth nightly as needed Active fluticasone propionate (FLONASE) 50 mcg/actuation nasal spray Administer into affected nostril(s) Active evolocumab (Magda Christianson) 140 mg/mL pen injector Inject 1 mL (140 mg total) under the skin every 14 (fourteen) days 2 mL 11 04/16/20 24 Active turmeric root extract 500 mg capsule Take by mouth Active hydroCHLOROthi azide (MICROZIDE) 12.5 mg capsuleIndicat ions:Hypertens ion associated with diabetes (HCC) Take 1 capsule (12.5 mg total) by mouth every morning 30 capsule 11 10/26/19 25 026 Active lisinopriL (PRINIVIL,ZEST RIL) 20 mg tablet TAKE 1 TABLET BY MOUTH TWICE DAILY 180 tablet 11/05/19 25 Active coenzyme Q10 200 mg capsule Take 1 capsule (200 mg total) by mouth daily Active guaiFENesin (ROBITUSSIN) 400 mg tablet Take 1 tablet (400 mg total) by mouth Active valACYclovir (VALTREX) 1 gram tablet Take by mouth Acti ve triamcinolone (KENALOG) 0.1 % ointment Apply topically 2 (two) times a day Active lisinopriL (PRINIVIL,ZEST RIL) 20 mg tablet TAKE 1 TABLET BY MOUTH TWICE DAILY 180 tablet 2 03/05/20 24 025 Discontinued Active Problems Problem Noted Date Diagnosed Date Medication side effects 10/21/2023 Other emphysema 07/08/2023 Hypomagnesemia 05/06/2023 Pulmonary HTN 04/12/2020 Statin myopathy 10/29/2019 SHAW (dyspnea on exertion) 10/05/2019 Other chest pain 10/05/2019 Abdominal aortic aneurysm (AAA) without rupture 10/26/2015 Mixed diabetic hyperlipidemi a associated with type 2 diabetes mellitus ([facility]/HCC) 10/18/2015 Overview (12/07/2016): DM type 2 with diabetic dyslipidemia Muscle pain 10/18/2015 Overview (12/07/2016): Myalgia Sick sinus syndrome 10/18/2015 Overview (12/07/2016): Sick sinus syndrome Statin intolerance 10/18/2015 Overview (12/07/2016): Medication intolerance Gastroesophageal reflux disease 10/18/2015 Overview (12/07/2016): Gastroesophageal reflux disease, esophagitis presence not specified Diabetes mellitus 02/08/2015 Overview (12/07/2016): DM (diabetes mellitus) Bradycardia 02/08/2015 Overview (12/07/2016): Bradycardia History of abdominal aortic aneurysm (AAA) repai r 02/08/2015 Overview (12/07/2016): S/P AAA (abdominal aortic aneurysm) repair Hypertension associated with diabetes 11/30/2012 Overview (12/06/2016): HYPERTENSION NOS Disorder of lipid metabolism 11/30/2012 Overview (12/06/2016): LIPOID METABOL DIS NOS Abdominal aortic aneurysm (AAA) 09/17/2012 Resolved Problems Problem Noted Date Diagnosed Date Resolved Date Benign hypertension 02/08/2015 09/24/19 19 Overview (12/07/2016): HTN (hypertension), benign Dyslipidemia 02/08/2015 03/28/2022 Overview (12/07/2016): Dyslipidemia Encounters Date Type Department Care Team Description 12/01/2024 9:15 AM CDT Office Visit [facility] at [address] [place] [address] Eros Delacruz MD Claudication of both lower extremities 12/01/2024 Orders Only [facility] at [address] [place] [address] Eros Delacruz MD PAD (peripheral artery disease) (Primary Dx) 12/01/2024 Orders Only [facility] at [address] [place] [address] Eros Delacruz MD Abdominal aortic aneurysm (AAA) without rupture, unspecified part (Primary Dx); Atherosclerosis of [place] artery of both lower extremities with intermittent claudication 11/11/2024 Telephone [facility] [address] [place] [id number] Alex Daniel MD repatha 10/26/2024 9:30 AM DRAFTER 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 (CAD) Office Visit [facility] at [address] [place] [address] Alex Daniel MD History of abdominal aortic aneurysm (AAA) repair (Primary Dx); Hypertension associated with diabetes (HCC); Mixed diabetic hyperlipidemia associated with type 2 diabetes mellitus (CMS/HCC) (HCC); Sick sinus syndrome (HCC) from Last 3 Months Surgical History Surgery Date Site/Laterality Comments OTHER SURGICAL HISTORY 2012 Aneurysm, abdominal aortic: abdominal aneurysm repair SINUS SURGERY sinus surgery CHOLECYSTECTOMY ABDOMINAL SURGERY JOINT REPLACEMENT Medical History Medical History Date Comments Hx Other Medical Aneurysm, abdom inal aortic Hx Other Medical lung nodule Calculus of kidney Nephrolithias is Hypertension Diabetes mellitus (HCC) Family History Medical History Relation Name Comments Diabetes Brother 1 prashant Diabetes mellit us; Atrial fibrillation Brother 2 Atrial f ibrillation; Heart attack Father mignon Myocardial infa rction; Cause of : Myocardial infarction Coronary artery disease Mother kalyn Liane nary artery disease; Diabetes Mother kalyn Diabetes mellit us; Heart failure Mother kalyn Congestive hea rt failure; Cause of : Congestive heart failure Hyperlipidemia Mother kalyn Hyperlipidemi a; Hypertension Mother kalyn Hypertension; Coronary artery disease Other 1 Fami ly history of Coronary artery disease; Diabetes Other 2 Family history of Diabetes mellitus; Hyperlipidemia Other 3 Family histor y of Hyperlipidemia; Hypertension Other 4 Family history of Hypertension; Stroke Other 5 Family history of Stroke; Cervical cancer Sister 1 Cancer, cerv ical; Other Sister 2 No history of A lcoholism; Diabetes Sister 3 rajni Diabetes mellit us; Hypertension Sister 3 rajni Hypertension Sister 4 Hypertension; Coronary artery disease Sister 5 Liane nary artery disease; Other Sister 6 Bypass; Relation Name Status Comments Brother 1 prashant Brother 2 Father mignon Mother kalyn Other 1 Other 2 Other 3 Other 4 Other 5 Sister 1 Sister 2 Sister 3 rajni Sister 4 Sister 5 Sister 6 Social History Tobacco Use Types Packs/Day Years Used Date Smoking Tobacco: Former Smokeless Tobacco: Never Alcohol Use Standard Drinks/Week Comments Yes 0 (1 standard drink = 0.6 oz pur e alcohol) Sex and Gender Information Value Date Recorded Sex Assigned at Not on file 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) Gender Identity Male 04/10/2020 12:23 PM CDT Sexual Orientation Straight 04/10/2020 12 :23 PM CDT Obstetrics History Last Filed Vital Signs Vital Sign Reading Time Taken Comments Blood Pressure 134/66 12/01/2024 9:33 AM CDT Pulse 60 12/01/2024 9:33 AM CDT Temperature 36.4 C (97.5 F) 02/16/2020 8:07 AM CDT Respiratory Rate 16 06/04/2021 10:33 AM CDT Oxygen Saturation 97% 12/01/2024 9:33 AM CDT Inhaled Oxygen Concentration - - Weight 89.4 kg (197 lb) 12/01/2024 9:33 AM CDT Height 182.9 cm (6') 12/01/2024 9:33 AM CDT Body Mass Index 26.72 12/01/2024 9:33 AM CDT Plan of Treatment Health Maintenance Due Date Last Done Comments Albumin Creatinine Ratio, Urine 1952 Colon Cancer Screening-Colonoscopy 1952 Depression Screening 1952 Fall Risk Assessment 1952 Hemoglobin A1C 1952 Hepatitis C Screening 1952 eGFR 1952 Dilated Eye Exam 1952 Foot Exam 1952 DTaP/Tdap/Td Vaccine (1 - Tdap) 1963 Hepatitis B Screening 1970 Well Visit 65+ 2017 Covid-19 Vaccine (5 - 2023-2 5 season) 2024 12/17/2021, 06/25/2021, 11/11/2020, Additional history exists Lipid Panel 02/02/2025 02/03/2024, 12/2023, 10/21/2023, Additional history exists Pneumococcal vaccine 65+ Completed 06/19/2020, 04/2018 Zoster Vaccine Completed 01/23/2022, 11/22/2021 Influenza Vaccine Completed 06/27/2024, , 06/01/2017 Abdominal Aortic Aneurysm (A AA) Screen Completed 12/01/2024, 08/05/2023, 05/06/2023, Additional history exists Procedures Procedure Name Priority Date/Time Associated Diagnosis Comments LIPID PANEL Routine 02/03/2024 9:41 AM CDT CTA ABDOMEN PELVIS W WO CONTRAST Routine 04/21/2014 1:16 PM CDT from Last 3 Months or Most Recently Relevant to Health Maintenance Results * (ABNORMAL) Lipid panel (02/03/2024 9:41 AM CDT) SCRIBED Cholesterol, Total 159 0 - 200 EXTERNAL LAB SCRIBED HDL 54 40 - 100 EXTERNAL LAB SCRIBED LDL 48 0 - 100 EXTERNAL LAB SCRIBED Triglycerides 285(A) 0 - 150 EXTERNAL LAB Blood 02/03/2024 9:41 AM CDT us Historical Provider LAB BLOOD ORDERABLES Clara freed Result EXTERNAL LAB * CT Angiogram Abdomen Pelvis W WO Contrast (04/21/2014 1:16 PM CDT) Anatomical Region Laterality Modality Body N/A Computed Tomogra phy 04/21/2014 1:16 PM CDT Narrative 04/21/2014 4:04 PM CDT CARMEN ELLIOTT M.D. CAYLA FLOWER M.D. FINAL REPORT The radiology attending physician has personally reviewed this study, and has reviewed and/or edited this written report and agrees with it. ACC# Date Time Exam [id number] Apr 21, 2014 13:16:00 [id number] CTA Abd&Pelv wwo w recons EXAMINATION: CT ANGIOGRAPHY OF THE ABDOMEN AND PELVIS WITH AND WITHOUT CONTRAST HISTORY: 63-year-old man with history of abdominal aortic aneurysm status-post endovascular repair on or 10/05/2012, complicated by type II endoleak TECHNIQUE: CT angiography of the abdomen and pelvis performed prior to and following uneventful intravenous administration of 121 ml Optiray-350 using the post-endoluminal stent graft protocol. Vascular 3D images were generated on a dedicated workstation and also reviewed. FINDINGS: Comparison is made to studies dated 10/06/2013 and 04/21/2013. VASCULAR FINDINGS: There is an infrarenal abdominal aortic aneurysm with a bifurcated zmdze-cv-czhev stent graft in place. The proximal attachment site is just above the level the renal arteries, and the distal attachment sites are in the distal common iliac arteries. There has been no migration of the graft since the last exam. There is a persistent type II endoleak that appears to arise from the inferior mesenteric artery, with perigraft flow along the lateral aspect graft feeding both a small inferior right renal artery and a small inferior left renal artery. The soft tissue attenuation rind surrounding the abdominal aortic aneurysm has decreased in thickness and measures only 5 mm (previously 12 mm). AAA volume (lowest renal artery to aortic bifurcation): 344 cc The maximum diameter of the aneurysm is 70 mm AP x 75 mm [id number]. This is stable since the prior exam. The maximum diameter of the graft is 28 mm AP x 32 mm [id number]. This is stable since the prior exam. NON-VASCULAR FINDINGS: There are multiple unchanged sub-5 mm bilateral pulmonary nodules. The liver, spleen, pancreas, and adrenal glands are unremarkable. There several small bilateral renal cysts. The far-inferior aspects of the bilateral kidneys are hypoenhancing on the arterial phase images with progressive enhancement on the delayed images. These findings are consistent with perfusion of these portions of the kidneys by the inferior renal arteries that are fed by the inferior mesenteric artery via the type II endoleak (as described above). The bladder is normal in appearance. There are no dilated loops of small or large bowel. No adenopathy is seen within the abdomen or pelvis. There are no suspicious osseous lesions. IMPRESSION: 1. 70 mm x 75 mm infrarenal abdominal aortic aneurysm with stent graft in place. There has been no interval change in the size of the aneurysm since the prior examination, though there has been a decrease in the thickness of the soft tissue rind around the aneurysm sac. 2. AAA volume: 344 cc. This is stable from the prior exam. 3. 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 Requested By: VÍCTOR NOLASCO M.D. Dictated By: CAYLA FLOWER M.D. on Apr 21 2014 3:54P This document has been electronically signed by: CARMEN ELLIOTT M.D. on Apr 21 2014 4:04P [id number] Procedure Note Provider, MD Martinez - 12/27/2016 CARMEN ELLIOTT M.D. CAYLA FLOWER M.D. FINAL REPORT The radiology attending physician has personally reviewed this study, and has reviewed and/or edited this written report and agrees with it. ACC# Date Time Exam [id number] Apr 21, 2014 13:16:00 [id number] CTA Abd&Pelv wwo w recons EXAMINATION: CT ANGIOGRAPHY OF THE ABDOMEN AND PELVIS WITH AND WITHOUT CONTRAST HISTORY: 63-year-old man with history of abdominal aortic aneurysm status-post endovascular repair on or 10/05/2012, complicated by type II endoleak TECHNIQUE: CT angiography of the abdomen and pelvis performed prior to and following uneventful intravenous administration of 121 ml Optiray-350 using the post-endoluminal stent graft protocol. Vascular 3D images were generated on a dedicated workstation and also reviewed. FINDINGS: Comparison is made to studies dated 10/06/2013 and 04/21/2013. VASCULAR FINDINGS: There is an infrarenal abdominal aortic aneurysm with a bifurcated kppts-bg-xiphn stent graft in place. The proximal attachment site is just above the level the renal arteries, and the distal attachment sites are in the distal common iliac arteries. There has been no migration of the graft since the last exam. There is a persistent type II endoleak that appears to arise from the inferior mesenteric artery, with perigraft flow along the lateral aspect graft feeding both a small inferior right renal artery and a small inferior left renal artery. The soft tissue attenuation rind surrounding the abdominal aortic aneurysm has decreased in thickness and measures only 5 mm (previously 12 mm). AAA volume (lowest renal artery to aortic bifurcation): 344 cc The maximum diameter of the aneurysm is 70 mm AP x 75 mm kglip-[id number]. This is stable since the prior exam. The maximum diameter of the graft is 28 mm AP x 32 mm xbled-ot-awus. This is stable since the prior exam. NON-VASCULAR FINDINGS: There are multiple unchanged sub-5 mm bilateral pulmonary nodules. The liver, spleen, pancreas, and adrenal glands are unremarkable. There several small bilateral renal cysts. The far-inferior aspects of the bilateral kidneys are hypoenhancing on the arterial phase images with progressive enhancement on the delayed images. These findings are consistent with perfusion of these portions of the kidneys by the inferior renal arteries that are fed by the inferior mesenteric artery via the type II endoleak (as described above). The bladder is normal in appearance. There are no dilated loops of small or large bowel. No adenopathy is seen within the abdomen or pelvis. There are no suspicious osseous lesions. IMPRESSION: 1. 70 mm x 75 mm infrarenal abdominal aortic aneurysm with stent graft in place. There has been no interval change in the size of the aneurysm since the prior examination, though there has been a decrease in the thickness of the soft tissue rind around the aneurysm sac. 2. AAA volume: 344 cc. This is stable from the prior exam. 3. 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 Requested By: VÍCTOR NOLASCO M.D. Dictated By: CAYLA FLOWER M.D. on Apr 21 2014 3:54P This document has been electronically signed by: CARMEN ELLIOTT M.D. on Apr 21 2014 4:04P [id number] us Historical Provider MD DEL [facility] CT PROCEDURES Final R esult from Last 3 Months or Most Recently Relevant to Health Maintenance Insurance MEDICARE AET SENIOR SUPPLEMENT MEDICARE AETNA MEDICARE AETNA SENIOR SUPPLEMENT Care Teams Sample Tester Relationship Specialty Start Date End Date Stephen Garcia DO [address] [place] [address] [phone] PCP - General Family Medicine 03/28/22
--- OUTSIDE RECORDS SUMMARY | 2024-12-02 11:25 | XMS_ITS | Encounter Summary ---
Author Organization [facility] Address [address] [place] [address] Care Team Providers Care Rebrander Name Role Phone Neil Field MD Primary Care Provider + Encounter Details Date Type Department Care Team (Late st Contact Info) Description 10/21/2023 Lab Requisition [facility] - DermPath Lab [address] [place] [id number] Jim Oliva MD [address] [place] [address] Social History Tobacco Use Types Packs/Day Years Used Date Smoking Tobacco: Never Assessed Sex and Gender Information Value Date Recorded Sex Assigned at Not on file Gender Identity Not on file Sexual Orientation Not on file documented as of this encounter Plan of Treatment Not on file documented as of this encounter Procedures Procedure Name Priority Date/Time Associated Diagnosis Comments DERMATOPATHOLOGY Routine 10/21/2023 3:33 AM WAGON DRILL OPERATOR documented in this encounter Results * DERMATOPATHOLOGY (10/21/2023 3:33 AM WAGON DRILL OPERATOR) Case Report Dermatopathology Report Case: [id number] Authorizing Provider: Jim Oliva MD Collected: 10/21/2023 03:33 AM Ordering Location: [facility] Derm[facility] Lab Received: 10/21/2023 03:37 PM Pathologist: Luisa Cristina MD Specimen: Skin, left lat neck post 2:58 PM WAGON DRILL OPERATOR DERMATOPATHOLOGY LABORATORY Final Diagnosis Specimen A. SKIN, left lat neck post: BASAL CELL CARCINOMA, INFILTRATIVE PATTERN (C44.41) DERMAL SCAR (L90.5) 4 2:58 PM [facility] DERMATOPATHOLOGY LABORATORY Clinical History R/O BCC 4 2:58 PM [facility] DERMATOPATHOLOGY LABORAT[facility] Gross Description Specimen A: Received is one formalin filled container labeled with the patient's name and designated left lat neck post. The specimen consists of a(3) pieces shave biopsy measuring 7x3x1, 5x3x1, 3x3x1 mm. Jar 0. 4 2:58 PM [facility] DERMATOPATHOLOGY LABORATORY Microscopic Description Specimen A. SKIN, left lat neck post: Within the dermis there are nodular aggregates of basaloid cells associated with fibromyxoid stroma and epithelial-stromal clefts. At the advancing margin of the neoplasm, there are smaller angulated nests that infiltrate the dermis. There are fibroblasts and collagen bundles oriented parallel to the skin surface with elongated blood vessels, some of which are oriented perpendicular to the skin surface. 4 2:58 PM [facility] DERMATOPATHOLOGY LABORATORY Disclaimer An external and internal positive and negative controls are appropriate for the histochemical, immunohistochemical and immunofluorescence stain(s) in this case (if any), except where stated explicitly. The performance characteristics of the stain(s) cited in this report were developed and its performance characteristic determined by the Dermatopathology Laboratory at [facility], directed by Dr. Gabe Cristina. These tests need not be, and therefore are not, approved by the [place] Food and Drug Administration. The tests are used for clinical purposes. Billing Codes Specimen Charges Stain Charges 10202 1 4 2:58 PM [facility] DERMATOPATHOLOGY LABORATORY Embedded Images 4 2:58 PM [facility] DERMATOPATHOLOGY LABORATORY Pathology/Cytolo gy TISSUE SPECIMEN FROM SKIN / Unknown 10/21/2023 3:33 AM WAGON DRILL OPERATOR 10/21/2023 3:37 PM WAGON DRILL OPERATOR Jim Oliva MD LAB - PATHOLOGY/CYTO LOGY ORDERABLES DERMATOPATHOLOGY LABORATORY [facility] - Department of Dermatology [address] [place], [place] [id number] [place] [address] documented in this encounter Visit Diagnoses Not on filedocumented in this encounter Care Teams Rebrander Relationship Specialty Start Date End Date Neil Field MD [address] [address] PCP - General 03/03/18 documented as of this encounter
--- OUTSIDE RECORDS SUMMARY | 2024-12-02 11:25 | XMS_ITS | Referral Summary ---
Author Organization [facility] [address] [place] [address] [address] [place] [address] Care Team Providers Care Assistant Foreman Name Role Phone Stephen Garcia DO Primary Care Provide r Encounters Date Type Department Care Team Description 12/01/2024 Orders Only [facility] Medical Group Vascular at [address] [place] [phone] Eros Delacruz MD PAD (peripheral artery disease) (Primary Dx) 12/01/2024 Orders Only [facility] Medical [facility] Vascular at [address] [phone] Eros Delacruz MD Abdominal aortic aneurysm (AAA) without rupture, unspecified part (Primary Dx); Atherosclerosis of [place] artery of both lower extremities with intermittent claudication 12/01/2024 9:15 AM CDT Office Visit [facility] Medical [facility] Vascular at [address] [place] [address] Eros Delacruz MD Claudication of both lower extremities 11/11/2024 Telephone [facility] Cardiology [address] [facility] [address] [place] [address] Alex Daniel MD repatha 10/26/2024 9:30 AM SENIOR SQL DBA Office Visit [facility] Cardiology at [address] [place] [address] Alex Daniel MD History of abdominal aortic aneurysm (AAA) repair (Primary Dx); Hypertension associated with diabetes (HCC); Mixed diabetic hyperlipidemia associated with type 2 diabetes mellitus (CMS/HCC) (HCC); Sick sinus syndrome (HCC) from Last 3 Months Allergies Active Allergy Reactions Criticality Noted Date Comments Fenofibrate High Sbomvoq-Puj-Dla Reductase Inhibitors High Icosapent Ethyl Muscle pain [...] spray Administer into affected nostril(s) Active evolocumab (Repatha SureClick) 140 mg/mL pen injector Inject 1 mL [...] a associated with type 2 diabetes mellitus (CMS/HCC) 10/18/2015 Overview (12/07/2016): DM type 2 with [...] benign Dyslipidemia 02/08/2015 03/28/2022 Overview (12/07/2016): Dyslipidemia Social History Tobacco Use Types Packs/Day Years Used Date Smoking Tobacco: Former Smokeless Tobacco: Never Alcohol Use Standard Drinks/Week Comments Yes 0 (1 standard drink = 0.6 oz pur e alcohol) Sex and Gender Information Value Date Recorded Sex Assigned at Not on file Legal Sex Male 2:49 AM SENIOR SQL DBA Gender Identity Male 04/10/2020 12:23 PM CDT Sexual Orientation Straight 04/10/2020 12 :23 PM CDT Last Filed Vital Signs Vital [...] 12/01/2024 9:33 AM CDT Plan of Treatment Not on file Procedures Procedure Name Priority Date/Time Associated Diagnosis [...] us Historical Provider LAB BLOOD ORDERABLES Clara l Result EXTERNAL LAB * CT Angiogram Abdomen [...] agrees with it. ACC# Date Time Exam [id number] Apr 21, 2014 13:16:00 [id number] CTA Abd&Pelv wwo w recons EXAMINATION: CT [...] infrarenal abdominal aortic aneurysm with a bifurcated vpwxg-me-uhmdy stent graft in place. The proximal attachment [...] is 70 mm AP x 75 mm bedxv-xw-xulf. This is stable since the prior exam. The maximum diameter of the graft is 28 mm AP x 32 mm ndmed-te-wiph. This is stable since the prior exam. [...] ELLIOTT M.D. on Apr 21 2014 4:04P [id number] Procedure Note Provider, MD Martinez - 12/27/2016 CARMEN ELLIOTT M.D. CAYLA FLOWER M.D. FINAL REPORT The radiology attending physician has personally reviewed this study, and has reviewed and/or edited this written report and agrees with it. ACC# Date Time Exam [id number] Apr 21, 2014 13:16:00 [id number] CTA Abd&Pelv wwo w recons EXAMINATION: CT [...] infrarenal abdominal aortic aneurysm with a bifurcated snbwx-za-zwmjv stent graft in place. The proximal attachment [...] is 70 mm AP x 75 mm nhyie-oq-dgdr. This is stable since the prior exam. The maximum diameter of the graft is 28 mm AP x 32 mm gmnwc-ft-tkad. This is stable since the prior exam. [...] ELLIOTT M.D. on Apr 21 2014 4:04P [id number] Historical Provider MD DEL RIO CT PROCEDURES Final R esult from Last 3 Months or Most Recently Relevant to Health Maintenance Insurance MEDICARE [employer] SENIOR SUPPLEMENT MEDICARE [employer] MEDICARE [employer] SENIOR SUPPLEMENT Care Teams Assistant Foreman Relationship Specialty Start Date End Date Stephen Garcia DO [address] [place] [phone] PCP - General Family Medicine 03/28/22
--- OUTSIDE RECORDS SUMMARY | 2024-12-02 11:25 | XMS_ITS | Encounter Summary ---
Author Organization [facility] Healthcare Address [address] [place] [address] Care Team Providers Care Superintendent Power Name Role Phone Stephen Garcia DO Primary Care Provide r Encounter Details Date Type Department Care Team (Late st Contact Info) Description 12/01/2024 Orders Only [facility] Medical Group Vascular at [address] [place] [address] Eros Delacruz MD [address] [facility] [address] [address] PAD (peripheral artery disease) (Primary Dx) Social History Tobacco Use Types Packs/Day Years Used Date Smoking Tobacco: Former Smokeless Tobacco: Never Alcohol Use Standard Drinks/Week Comments Yes 0 (1 standard drink = 0.6 oz pur e alcohol) Sex and Gender Information Value Date Recorded Sex Assigned at Not on file Legal Sex Male 2:49 AM HELPER COORDINATOR Gender Identity Male 04/10/2020 12:23 PM CDT Sexual Orientation Straight 04/10/2020 12 :23 PM CDT documented as of this encounter Plan of Treatment Not on file documented as of this encounter Visit Diagnoses Diagnosis PAD (peripheral artery disease)- Primary Unspecified peripheral vascular disease documented in this encounter Care Teams Superintendent Power Relationship Specialty Start Date End Date Stephen Garcia DO [address] [place] [address] [phone] PCP - General Family Medicine 7/28/22 documented as of this encounter
--- OUTSIDE RECORDS SUMMARY | 2024-12-02 11:25 | XMS_ITS | Encounter Summary ---
Author Organization [facility] Address [address] [facility] [place] [address] Care Team Providers Care Infectious Disease Technician Name Role Phone Neil Field MD Primary Care Provider + Encounter Details Date Type Department Care Team (Late st Contact Info) Description 09/17/2023 Lab Requisition [facility] - DermPath Lab [address] [place] [phone] Jim Oliva MD [address] [place] [address] Social History Tobacco Use Types Packs/Day Years Used Date Smoking Tobacco: Never Assessed Sex and Gender Information Value Date Recorded Sex Assigned at Not on file Gender Identity Not on file Sexual Orientation Not on file documented as of this encounter Plan of Treatment Not on file documented as of this encounter Procedures Procedure Name Priority Date/Time Associated Diagnosis Comments DERMATOPATHOLOGY Routine 09/17/2023 3:33 AM INDUSTRIAL RELATIONS REPRESENTATIVE documented in this encounter Results * DERMATOPATHOLOGY (09/17/2023 3:33 AM INDUSTRIAL RELATIONS REPRESENTATIVE) Case Report Dermatopathology Report Case: [id number] Authorizing Provider: Jim Oliva MD Collected: 09/17/2023 03:33 AM Ordering Location: [facility] DermPath Lab Received: 09/18/2023 06:08 AM Pathologist: Jasmin Barclay MD Specimen: Skin, left lat neck sup 1:42 PM INDUSTRIAL RELATIONS REPRESENTATIVE DERMATOPATHOLOGY LABORATORY Final Diagnosis Specimen A. SKIN, left lat neck sup: BASAL CELL CARCINOMA, NODULAR TYPE (C44.41) DERMAL SCAR (L90.5) 4 1:42 PM [facility] D[facility] Clinical History BCC BX site. Prior Biopsy 4 1:42 PM [facility] D[facility] Gross Description Specimen A: Received is one formalin filled container labeled with the patient's name and designated left lat neck sup. The specimen consists of a(2) pieces shave biopsy measuring 8x6x1, 7x5x1 mm. Jar 0. 4 1:42 PM [facility] DER[facility]ORY Microscopic Description Specimen A. SKIN, left lat neck sup: Within the dermis there are aggregates of basaloid cells with a high nuclear to cytoplasmic ratio and peripheral palisading. There are fibroblasts and collagen bundles oriented parallel to the skin surface with elongated blood vessels, some of which are oriented perpendicular to the skin surface. 4 1:42 PM [facility] DERMAT[facility] LABORATORY Disclaimer An external and internal positive and negative controls are appropriate for the histochemical, immunohistochemical and immunofluorescence stain(s) in this case (if any), except where stated explicitly. The performance characteristics of the stain(s) cited in this report were developed and its performance characteristic determined by the Dermatopathology Laboratory at [facility], directed by Dr. Gabe Cristina. These tests need not be, and therefore are not, approved by the [place] Food and Drug Administration. The tests are used for clinical purposes. Billing Codes Specimen Charges Stain Charges 31790 1 4 1:42 PM [facility] DERMAT[facility] LAB[facility]ORY Embedded Images 4 1:42 PM [facility] DER[facility]ATORY Pathology/Cytolo gy TISSUE SPECIMEN FROM SKIN / Unknown 09/17/2023 3:33 AM INDUSTRIAL RELATIONS REPRESENTATIVE 09/18/2023 6:08 AM INDUSTRIAL RELATIONS REPRESENTATIVE Jim Oliva MD LAB - PATHOLOGY/CYTO LOGY ORDERABLES DERMATOPATHOLOGY LABORATORY [facility] - Department of Dermatology [address], [address] [phone] documented in this encounter Visit Diagnoses Not on filedocumented in this encounter Care Teams Infectious Disease Technician Relationship Specialty Start Date End Date Neil Field MD [address] [place] [phone] PCP - General 03/03/18 documented as of this encounter
[2024-12-02 12:41] LABS: Prostate Specific Antigen < 0.1 ng/mL (< OR = 4.0)
[2024-12-09 06:38] LABS: Testosterone Total 169 ng/dL (250-1100)
== END 2024-12-02 10:32 | disposition home or self-care (01) ==
PROVIDERS: PCP Student in an Organized Health Care Education/Training Program; Visit Provider Urology
DX: C61 Malignant neoplasm of prostate (principal)
CPT/HCPCS: 36415; 84153; 84403

== ENCOUNTER 2025-02-10 09:44 | Outpatient (CLI) | payer MEDICARE, SELFPAY ==
[2025-02-10 10:28] LABS: Albumin Level 4.2 g/dL (3.5-5.1); Anion Gap 12 mmol/L (4-12); Blood Urea Nitrogen 21 mg/dL (9-20); Calcium 9.6 mg/dL (8.4-10.2); Carbon Dioxide 22 mmol/L (22-30); Chloride 102 mmol/L (98-107); Estimated Glomerular Filt Rate > 60; Glucose 211 mg/dL (65-110); Phosphorus 3.4 mg/dL (2.5-4.5); Potassium 4.6 mmol/L (3.4-5.0); Sodium 136 mmol/L (137-145)
[2025-02-10 10:29] LABS: Creatinine Urine 81.2 mg/dL
--- OUTSIDE RECORDS SUMMARY | 2025-02-10 10:30 | XMS_ITS | Encounter Summary ---
Author Organization [facility] Healthcare Address [address] [place] [address] Care Team Providers Care Medical Supervisor Name Role Phone Stephen Garcia DO Primary Care Provide r Encounter Details Date Type Department Care Team (Late st Contact Info) Description 02/09/2025 Telephone [facility] Medical Group Vascular and Vein Surgery [address] [facility] [address] [place] [phone] Lissette Patel, RN Social History Tobacco Use Types Packs/Day Years Used Date Smoking Tobacco: Former Smokeless Tobacco: Never Alcohol Use Standard Drinks/Week Comments Yes 0 (1 standard drink = 0.6 oz pur e alcohol) AUDIT-C Answer Date Recorded Q1: How often do you have a drink containing alcohol? Never 02/03/2025 Q2: How many drinks containi ng alcohol do you have on a typical day when you are drinking? Patient does not drink Q3: How often do you have si x or more drinks on one occasion? Never 02/03/2025 Personal Safety Answer Date Recorded Have you ever been in or are you currently in a harmful physical or emotional relationship or is someone making you feel afraid or unsafe? Denies 02/03/2025 Sex and Gender Information Value Date Recorded Sex Assigned at Not on file Legal Sex Male 2:49 AM GEOLOGY ASSOCIATE Gender Identity Male 04/10/2020 12:23 PM CDT Sexual Orientation Straight 04/10/2020 12 :23 PM CDT documented as of this encounter Miscellaneous Notes * Telephone Encounter - Lissette Patel, RN - 02/09/2025 2:29 PM CDT RN called and spoke with Mr. Elizondo in regards to scheduling his procedure with Dr. Delacruz for RCFA Endarterectomy. Patient stated that at this time he does not want to schedule his procedure. Patient stated he will call the office once he is ready to schedule. documented in this encounter Plan of Treatment Not on file documented as of this encounter Visit Diagnoses Not on filedocumented in this encounter Care Teams Medical Supervisor Relationship Specialty Start Date End Date Stephen Garcia DO [address] [place] [phone] PCP - General Family Medicine 03/28/22 documented as of this encounter
--- OUTSIDE RECORDS SUMMARY | 2025-02-10 10:30 | XMS_ITS | Referral Summary ---
Author Organization [facility] [place] [address] Address [address] [place] [address] Care Team Providers Care Ocular Pathologist Name Role Phone Stephen Garcia Primary Care Provide r Encounters Date Type Department Care Team Description 02/09/[address] [facility] Medical Group Vascular and Vein Surgery [facility] [address] [place] [address] Lissette Patel RN 02/09/2025 8:45 AM CDT Office Visit [facility] Medical Group Vascular at [address] [place] [phone] Nieves Delacruz MD Arrived 02/03/2025 7:30 AM CDT - 02/03/2025 8:30 AM CDT Surgery [facility] Cardiac Chief Quality Officer [address] [place] [phone] Nieves Delacruz MD BILATERAL ANGIOGRAM WITH POSSIBLE INTERVENTION WITH LEFT GROIN OR BRACHIAL ACCESS 02/03/2025 5:46 AM CDT - 02/03/2025 11:05 AM CDT Hospital Encounter [facility] Cardiac Chief Quality Officer [address] [place] [phone] Nieves Delacruz MD Atherosclerosis of [place] artery of both lower extremities with intermittent claudication; Other disorder of circulatory system Discharge Disposition: Discharge to home or self care 12/30/[address] [facility] Medical Group Vascular and Vein Surgery [address] [facility] [address] [place] [phone] Camilla Pham MA 12/30/2024 Telephone [facility] Vascular and Vein Surgery [address] [phone] Camilla Pham MA 12/29/2024 9:30 AM CDT Office Visit [facility] Vascular at [address] [place] [phone] Nieves Delacruz MD PAD (peripheral artery disease) (Primary Dx); Infrarenal abdominal aortic aneurysm (AAA) without rupture; Hypertension associated with diabetes (HCC) 12/17/2024 12:45 PM CDT - 12/17/2024 11:59 PM CDT Hospital Encounter [facility] Cardiac Testing [address] [place] [address] Atherosclerosis of [place] artery of both lower extremities with intermittent claudication Discharge Disposition: Discharge to home or self care 12/17/2024 1:59 PM CDT - 12/17/2024 11:59 PM CDT Hospital Encounter [facility] CT [address] [place] [phone] Abdominal aortic aneurysm (AAA) without rupture, unspecified part Discharge Disposition: Discharge to home or self care 12/01/2024 Orders Only [facility] Group Vascular at [address] [place] [phone] Nieves Delacruz MD PAD (peripheral artery disease) (Primary Dx) 12/01/2024 Orders Only [facility] Vascular at [address] [place] [phone] Nieves Delacruz MD Abdominal aortic aneurysm (AAA) without rupture, unspecified part (Primary Dx); Atherosclerosis of [place] artery of both lower extremities with intermittent claudication 12/01/2024 9:15 AM CDT Office Visit [facility] Vascular at [address] [place] [address] Lydia Hamilton NP Hypertension associated with diabetes (HCC) (Primary Dx); Claudication of both lower extremities; Infrarenal abdominal aortic aneurysm (AAA) without rupture; Mixed diabetic hyperlipidemia associated with type 2 diabetes mellitus (CMS/HCC) (HCC); Type 2 diabetes mellitus with hyperglycemia, without long-term current use of insulin (HCC); PAD (peripheral artery disease) 11/11/[address] [facility] Medical Group Cardiology [address] [place] [address] Alex Daniel MD repatha from Last 3 Months Allergies Active Allergy Reactions Criticality Noted Date Comments Fenofibrate High Deelsbv-Bbw-Jpw Reductase Inhibitors High Icosapent Ethyl Muscle pain Medium 10/21/2023 Medications aspirin 81 mg tablet take 1 tablet (81MG) by oral route every day 0 3 Active omeprazole (PriLOSEC) 20 mg capsule take 1 capsule by oral route every day before a meal 0 0 5 Active metFORMIN (GLUCOPHAGE) 1,000 mg tablet take 1 tablet by oral route 2 times every day with morning and evening meals 0 0 5 Active nitroglycerin (NITROSTAT) 0.[address] 1 tablet (0.4 mg total) under the tongue every 5 (five) minutes as needed for chest pain May repeat dose q 5 min, up to 3 doses total 25 tablet 1 0 10/26/19 26 Active sildenafiL (VIAGRA) 100 mg tablet Take 1 tablet (100 mg total) by mouth as needed for erectile dysfunction Active pregabalin (LYRICA) 75 mg capsule Take 1-2 hours before bed daily 2 Active hydrALAZINE (APRESOLINE) 25 mg tablet TAKE 1 TABLET(25 MG) BY MOUTH THREE TIMES DAILY 90 tablet 11 2 Active Additional Information Patient taking differently: 50 mg oral 3 times daily, Indications: hypertension, Reported on 02/09/2025 alendronate (FOSAMAX) 70 mg tablet TAKE 1 TABLET BY MOUTH WEEKLY 3 Active tamsulosin (FLOMAX) 0.4 mg extended release capsule 1 capsule (0.4 mg total) Active oxyCODONE-acet aminophen (PERCOCET) 10-325 mg per tablet Take 1 tablet by mouth every 4 (four) hours as needed 3 Active biotin 1 mg tablet Take 1,200 [...] every 14 (fourteen) days 2 mL 11 4 Active turmeric root extract 500 mg capsule Take by mouth Active hydroCHLOROthi azide (MICROZIDE) 12.5 mg capsuleIndicat ions:Hypertens ion associated with diabetes (HCC) Take 1 capsule (12.5 mg total) by mouth every morning 30 capsule 11 5 10/26/19 26 Active coenzyme Q10 200 mg capsule Take 1 capsule (200 mg total) by mouth daily Active guaiFENesin (ROBITUSSIN) 400 mg tablet Take 1 tablet (400 mg total) by mouth Active valACYclovir (VALTREX) 1 gram tablet Take by mouth Acti ve amLODIPine (NORVASC) 10 mg tablet TAKE 1 TABLET(10 MG) BY MOUTH DAILY 90 tablet 2 5 Active lisinopriL (PRINIVIL,ZEST RIL) 20 mg tablet TAKE 1 TABLET BY MOUTH TWICE DAILY 180 tablet 3 5 Active Anoro Ellipta 62.5-25 mcg/actuation blister with device 02/04/20 25 Discontin ued(Patie nt Reported) triamcinolone (KENALOG) 0.1 % ointment Apply topically 2 (two) times a day 02/04/20 25 Discontin ued(Patie nt Reported) Active Problems Problem Noted Date Diagnosed Date Atherosclerosis of [place] of both lower extremities with intermittent claudication 12/30/2024 PAD (peripheral artery disease) 12/03/2024 Assessment & Plan (12/29/2024 11:12 AM CDT): Moderate occlusive disease to bilateral lower extremities with life-limiting claudication right greater than left. On his CT likely has high-grade stenosis versus functional occlusions to bilateral common femoral arteries. Overall he has been undergoing a walking program with no improvement, risks benefits alternatives to lower extremity angiography with possible intervention discussed, risks including bleeding, infection, perforation, contrast induced nephropathy, dissection, thrombosis, distal embolization and need further surgery. He wished proceed. Assessment & Plan (12/03/2024 2:07 PM CDT): Bilateral limiting claudication right worse than the left. Denies any rest pain. Patient is needing further workup including an up-to-date arterial Doppler as well as CTA with runoff. He will likely need scheduled for an angiogram at the next office visit. Medication side effects 10/21/2023 Other emphysema 07/08/2023 Hypomagnesemia 05/06/2023 Pulmonary HTN 04/12/2020 Statin myopathy 10/29/2019 SHAW (dyspnea on exertion) 10/05/2019 Other chest pain 10/05/2019 Abdominal aortic aneurysm (AAA) without rupture 10/26/2015 Assessment & Plan (12/29/2024 11:11 AM CDT): Status post EVAR by Dr. Martell, slight growth in the aneurysm sac with likely a type 2 endoleak. will need ongoing surveillance, repeat CTA abdomen pelvis in 6 months Assessment & Plan (12/03/2024 2:05 PM CDT): Being followed by Dr. Martell Mixed diabetic hyperlipidemi a associated with type 2 diabetes mellitus ([facility] 10/18/2015 Overview (12/07/2016): DM type 2 with diabetic dyslipidemia Muscle pain 10/18/2015 Overview (12/07/2016): Myalgia Sick sinus syndrome 10/18/2015 Overview (12/07/2016): Sick sinus syndrome Statin intolerance 10/18/2015 Overview (12/07/2016): Medication intolerance Gastroesophageal reflux disease 10/18/2015 Overview (12/07/2016): Gastroesophageal reflux disease, esophagitis presence not specified Type 2 diabetes mellitus wit h hyperglycemia, without long-term current use of insulin 02/08/2015 Overview (12/07/2016): DM (diabetes mellitus) Bradycardia 02/08/2015 Overview (12/07/2016): Bradycardia History of abdominal aortic aneurysm (AAA) repai r 02/08/2015 Overview (12/07/2016): S/P AAA (abdominal aortic aneurysm) repair Hypertension associated with diabetes 11/30/2012 Overview (12/06/2016): HYPERTENSION NOS Assessment & Plan (12/29/2024 11:12 AM CDT): Stable continue lisinopril Disorder of lipid metabolism 11/30/2012 Overview (12/06/2016): [...] on file Legal Sex Male 2:49 AM [employer] Gender Identity Male 04/10/2020 12:23 PM CDT Sexual Orientation Straight 04/10/2020 12 :23 PM CDT Last Filed Vital Signs Vital Sign Reading Time Taken Comments Blood Pressure 133/66 02/09/2025 8:32 AM CDT Pulse 58 02/09/2025 8:32 AM CDT Temperature 36.4 C (97.5 F) 02/16/2020 8:07 AM CDT Respiratory Rate 18 02/03/2025 10:25 AM CDT Oxygen Saturation 97% 02/09/2025 8:32 AM CDT Inhaled Oxygen Concentration - - Weight 84.8 kg (187 lb) 02/09/2025 8:32 AM CDT Height 182.9 cm (6') 02/09/2025 8:32 AM CDT Body Mass Index 25.36 02/09/2025 8:32 AM CDT Plan of Treatment Not on file Medical Devices Implanted Type Area Venereal Disease Control Head Device Identifier Shelf Expiration Date Model / Serial / Lot [employer] Vascular System Closure Repair Femoral Artery Suture Mediated Perclose Prostyle [id number] - [id number] Implanted:Qty: 1 on 02/03/2025 by Nieves Delacruz MD at [facility] [employer] 11/29/2026 [id number] / / Procedures Procedure Name Priority Date/Time Associated Diagnosis Comments PERIPHERAL RUN OFF CATH Routine 02/03/2025 7:52 AM CDT Atherosclerosis of [place] artery of both lower extremities with intermittent claudication B ABO / RH CONFIRMATION TESTING STAT 02/03/2025 6:41 AM CDT EGFR STAT 02/03/2025 6:26 AM CDT Atherosclerosis of [place] artery of both lower extremities with intermittent claudication DIFFERENTIAL AUTO STAT 02/03/2025 6:2 6 AM CDT Atherosclerosis of [place] artery of both lower extremities with intermittent claudication ANTIBODY SCREEN STAT 02/03/2025 6:26 AM CDT Atherosclerosis of [place] artery of both lower extremities with intermittent claudication ABO/RH STAT 02/03/2025 6:26 AM CDT Atherosclerosis of [place] artery of both lower extremities with intermittent claudication TYPE AND SCREEN STAT 02/03/2025 6:26 AM CDT Atherosclerosis of [place] artery of both lower extremities with intermittent claudication PROTIME-INR STAT 02/03/2025 6:26 AM CDT Atherosclerosis of [place] artery of both lower extremities with intermittent claudication COMPREHENSIVE METABOLIC PANEL STAT 02/03/2025 6:26 AM CDT Atherosclerosis of [place] artery of both lower extremities with intermittent claudication CBC WITH AUTO DIFFERENTIAL STAT 02/03/2025 6:26 AM CDT Atherosclerosis of [place] artery of both lower extremities with intermittent claudication APTT STAT 02/03/2025 6:26 AM CDT Atherosclerosis of [place] artery of both lower extremities with intermittent claudication Other disorder of circulatory system CTA ABDOMINAL AORTA AND BILATERAL ILIOFEMORAL RUNOFF Schedule Routine, Read Routine (OP Routine) 12/17/2024 2:55 PM CDT Abdominal aortic aneurysm (AAA) without rupture, unspecified part US ARTERIAL DOPPLER LOWER EXTREMITY BILATERAL Schedule Routine, Read Routine (OP Routine) 12/17/2024 1:48 PM CDT Atherosclerosis of [place] artery of both lower extremities with intermittent claudication LIPID PANEL Routine 02/03/2024 9:41 AM CDT from Last 3 Months or Most Recently Relevant to Health Maintenance Results * PERIPHERAL RUN OFF CATH (02/03/2025 7:52 AM CDT) Anatomical Region Laterality Modality X-Ray Angiograph y Narrative 02/03/2025 7:59 AM CDT Please see OpNote for result. Nieves Delacruz MD CV CARDIAC CATH PROCEDURES Final Result * ABO / Rh Confirmation Testing (02/03/2025 6:41 AM CDT) ABO/Rh Confirmation A Positive MHB Blood 02/03/2025 6:41 AM CDT 02/03/2025 6:44 AM CDT us Nieves Delacruz MD LAB BLOOD ORDERABLES Final Resul t Performing Organization Address [facility] Co de Phone Number L[facility] [address] [address] MHB * eGFR (02/03/2025 6:26 AM CDT) eGFR 73 >=60 mL/min/1. 73 m2 Comment: Interpretive Data Reference Interval Normal >/= 90 mL/min/1.73m2 Mildly decreased* 60 - 89 mL/min/1.73m2 Mildly to moderately decreased 45 - 59 mL/min/1.73m2 Moderately to severely decreased 30 - 44 mL/min/1.73m2 Severely decreased 15 - 29 mL/min/1.73m2 Kidney Failure < 15 mL/min/1.73m2 *Relative to young adult level Estimated glomerular filtration rate is determined by the 2020 CKD-EPI equation recommended by the National Kidney Foundation (A Unifying Approach to GFR Estimation: Recommendations of the NKF-ASK Task Force on Reassessing the Inclusion of Race in Diagnosing Kidney Disease, JASN 2020). The CKD-EPI equation should not be used for patients with unstable renal function and has not been validated in children and those over 70. Current interpretive data was last reviewed 2021. Blood 02/03/2025 6:26 AM CDT 02/03/2025 6:31 AM CDT Nieves Delacruz MD LAB BLOOD ORDERABLES Final Resul t Performing Organization Address City/[facility] Co de Phone Number L[facility] [address] [place] [address] * (ABNORMAL) Differential, auto (02/03/2025 6:26 AM CDT) Neutrophil abs 3.15 1.50 - 6.50 K/cumm Imm gran abs 0.02 0.00 - 0.10 K/cumm [facility] Lymphocyte abs 0.55(L) 0.80 - 3.30 K/cumm [facility] Monocyte abs 0.64 0.20 - 0.80 K/cumm [facility] Eosinophil abs 0.20 0.00 - 0.50 K/cumm [facility] Basophil abs 0.06 0.00 - 0.10 K/cumm [facility] Neutrophil pct 68.2 % [facility] Comment: Interpretive Data Percent cell count reference ranges are not reported, since discordance with absolute values may lead to misinterpretation of CBC data. Current Interpretive Data was last revised on 2017. Imm gran pct 0.4 % [facility] Comment: Interpretive Data Percent cell count reference ranges are not reported, since discordance with absolute values may lead to misinterpretation of CBC data. Current Interpretive Data was last revised on 2017. Lymphocyte pct 11.9 % [facility] Comment: Interpretive Data Percent cell count reference ranges are not reported, since discordance with absolute values may lead to misinterpretation of CBC data. Current Interpretive Data was last revised on 2017. Monocyte pct 13.9 % [facility] Comment: Interpretive Data Percent cell count reference ranges are not reported, since discordance with absolute values may lead to misinterpretation of CBC data. Current Interpretive Data was last revised on 2017. Eosinophil pct 4.3 % [facility] Comment: Interpretive Data Percent cell count reference ranges are not reported, since discordance with absolute values may lead to misinterpretation of CBC data. Current Interpretive Data was last revised on 2017. Basophil pct 1.3 % [facility] Comment: Interpretive Data Percent cell count reference ranges are not reported, since discordance with absolute values may lead to misinterpretation of CBC data. Current Interpretive Data was last revised on 2017. Blood 02/03/2025 6:26 AM CDT 02/03/2025 6:31 AM CDT us Nieves Delacruz MD LAB BLOOD ORDERABLES Final Resul t [facility] [address] [facility] Department [place] [address] * (ABNORMAL) CBC with auto differential (02/03/2025 6:26 AM CDT) WBC 4.62 3.80 - 9.90 K/cumm Hgb 13.2 13.0 - 17.5 g/dL [facility] Hct 41.1 38.9 - 50.3 % [facility] Plt 260 150 - 400 K/cumm [facility] MPV 9.5 9.1 - 12.3 fL [facility] RBC 4.48 4.30 - 5.80 M/cumm [facility] MCV 91.7 81.3 - 96.4 fL [facility] MCH 29.5 27.1 - 33.3 pg [facility] MCHC 32.1(L) 32.3 - 35.7 g/dL [facility] RDW CV 13.3 11.1 - 14.9 % [facility] RDW SD 45.1 35.7 - 48.1 fL [facility] NRBC abs 0.00 0.00 - 0.01 K/cumm [facility] Blood 02/03/2025 6:26 AM CDT 02/03/2025 6:31 AM CDT Narrative [facility] - 02/03/2025 6:36 AM CDT If most recent labs were drawn prior to 4 AM, draw only prior to initiating procedure. Nieves Delacruz MD LAB BLOOD ORDERABLES Final Resul t Performing Organization Address City/[facility] Co de Phone Number [address] [place] [address] * ABO/Rh (02/03/2025 6:26 AM CDT) ABO/Rh A Positive Blood 02/03/2025 6:2 6 AM CDT 02/03/2025 6:31 AM CDT Narrative [facility] - 02/03/2025 7:06 AM CDT Has the patient had Daratumumab or Isatuximab in the past 6 months?->Unknown Nieves Delacruz MD LAB BLOOD BANK TEST ORDERABLES F inal Result [address] [place], [place] [id number] * aPTT (02/03/2025 6:26 AM CDT) aPTT 29 22 - 37 sec Comment: Interpretive data aPTT test has not been evaluated for monitoring heparin therapy. The anti-Xa is the preferred test. Current interpretive data was last revised on 2019. Blood 02/03/2025 6:26 AM CDT 02/03/2025 6:31 AM CDT Nieves Delacruz MD LAB BLOOD ORDERABLES Final Resul t Performing Organization Address [facility] de Phone Number [address] [employer] [place] [address] * Protime-INR (02/03/2025 6:26 AM CDT) Pathologist [facility] PT 13.2 12.0 - 14.6 sec INR 1.0 0.9 - 1.2 L[facility]SY Comment: Ref Range High Interpretive data Oral anticoagulant therapeutic ranges: Venous thromboembolism prophylaxis or treatment: 2.0-3.0 CARDIOLOGY Standard range: 2.0-3.0 High-intensity range: 2.5-3.5 Refer to indication-specific guidelines for appropriate target ranges for prosthetic heart valve replacement. Current interpretive data was last revised on 2019. Blood 02/03/2025 6:26 AM CDT 02/03/2025 6:31 AM CDT Nieves Delacruz MD LAB BLOOD ORDERABLES Final Resul t Performing Organization Address [facility] de Phone Number [address] [employer] [place] [address] * Antibody screen (02/03/2025 6:26 AM CDT) Tay, indirect, Gel Interpretation Negative ABSC Blood 02/03/2025 6:26 AM CDT 02/03/2025 6:31 AM CDT Narrative [facility] - 02/03/2025 7:06 AM CDT Has the patient had Daratumumab or Isatuximab in the past 6 months?->Unknown Nieves Delacruz MD LAB BLOOD BANK TEST ORDERABLES F inal Result Performing Organization Address City/[facility]/ZIP Co de Phone Number [facility] [address] [facility] Department [place] [address] * Comprehensive metabolic panel (02/03/2025 6:26 AM CDT) Sodium 138 135 - 145 mmol/L Potassium, pl 4.4 3.3 - 4.9 mmol/L [facility] Chloride 102 97 - 110 mmol/L [facility] CO2 24 22 - 32 mmol/L [facility] Anion gap 12 2 - 15 mmol/L [facility] BUN 22 6 - 25 mg/dL [facility] Creatinine 1.08 0.80 - 1.30 mg/dL [facility] Glucose 174 70 - 199 mg/dL [facility] Comment: Interpretive Data Fasting glucose >/= 126 mg/dl is diagnostic for diabetes. Fasting is defined as no caloric intake for at least 8 hours. Fasting glucose between 100 mg/dl to 125 mg/dl is diagnostic of prediabetes. In a patient with classic symptoms of hyperglycemia or hyperglycemic crisis, a random glucose >/= 200 mg/dl is diagnostic for diabetes. In the absence of unequivocal hyperglycemia, results should be confirmed by repeat testing. The classification and Diagnosis of Diabetes Diabetes Care 202; 46: S19-S40. Current interpretive data was last revised 2022. Calcium 9.7 8.5 - 10.3 mg/dL [facility] Bilirubin, total 0.2 0.1 - 1.2 mg/dL [facility] Protein, pl 7.3 6.5 - 8.5 g/dL [facility] Albumin 4.3 3.5 - 5.0 g/dL [facility] Alk phos 77 40 - 130 Units/L [facility] ALT 18 7 - 55 Units/L [facility] AST 24 10 - 50 Units/L [facility] Blood 02/03/2025 6:26 AM CDT 02/03/2025 6:31 AM CDT Nieves Delacruz MD LAB BLOOD ORDERABLES Final Resul t [facility] [address] [facility] Department [place] [address] * CTA Abdominal Aorta And Bilateral Iliofemoral Runoff (12/17/2024 2:55 PM CDT) Anatomical Region Laterality Modality Body Bilateral Computed Tomogra phy 12/20/2024 12:3 2 PM CDT Narrative 12/20/2024 12:47 PM CDT EXAM DESCRIPTION: CTA ABDOMINAL AORTA AND BILATERAL ILIOFEMORAL RUNOFF REASON FOR STUDY: PAD Pt states pain to both lower limbs, especially left calf. Hx of infrarenal aortic repair. Some difficulty walking. TECHNIQUE: CTA of the abdominal aorta with bilateral lower extremity runoff was performed without and with intravenous contrast using helical scanning technique. Precontrast and arterial images were obtained of the lower extremities. Images reviewed with soft tissue and bone windows. Reconstructed coronal and sagittal MPR images reviewed. All images stored on PACS. 3D MIP images rendered on scanning unit and reviewed at time of interpretation. Automated exposure control was used as a dose optimization technique for this examination. CONTRAST TYPE/DOSE: 100mL of IOVERSOL 350 MG IODINE/ML INTRAVENOUS SYRINGE injected via intravenous COMPARISON: 08/09/2024 FINDINGS: VASCULATURE: NON-CONTRASTED IMAGING: Diffuse heavy atherosclerotic calcified plaque. ABDOMINAL AORTA: Suprarenal abdominal aorta is patent without stenosis or aneurysmal segment. Infrarenal segment demonstrates a patent endovascular bifurcated stent graft. Mild intimal hyperplasia proximally. Bilateral common iliac limbs are patent without stenosis. The aneurysmal sac demonstrates maximum dimension of 7.35 x 7.0 cm, previously 6.96 x 6.59 cm using a similar technique. Subtle induration of the adjacent retroperitoneal soft tissues along the posterolateral left and inferior and anterior margins at the bifurcation persist and are unchanged. No surrounding fluid collection. Of note, this exam is not tailored to optimize evaluation of the stent graft device. That being said, no unusual enhancement of the aortic lumen to suggest a prominent endoleak. However, no delayed images are available for standard evaluation. MESENTERIC/RENAL: Celiac axis and superior mesenteric arteries are patent from their origins. Bilateral renal arteries are patent with a small accessory right renal artery also patent. Inferior mesenteric artery is patent distally. PELVIC VASCULATURE: Common/external iliac arteries: Right common iliac artery stent is patent and the bifurcation is patent. Right internal and external iliac arteries are patent. The left common femoral artery stent is patent, the iliac bifurcation is patent with patent internal iliac artery. The left external iliac artery is patent. RIGHT LOWER EXTREMITY VASCULATURE: The right common femoral artery is heavily calcified and obscures detail with an underlying severe stenosis suspected and similar to previous. The right common femoral bifurcates with patent profunda femoral artery. The right superficial femoral artery is patent with heavy calcification in the adductor canal region with likely underlying high-grade stenosis. Continuous flow to the popliteal with a additional high-grade stenosis identified above the patella level. The distal popliteal is patent and trifurcations with 3 patent distal runoff vessels. LEFT LOWER EXTREMITY VASCULATURE: The left common femoral artery demonstrates heavily calcified plaque obscuring detail with possible segmental occlusion. The left profunda femoral artery is patent possibly from collateralization. The left superficial femoral artery is patent possibly from collateralization. The left popliteal above the level of the patella demonstrates heavily calcified plaque suggesting likely severe stenosis. The distal popliteal is obscured by metallic artifact from left knee prosthesis. The distal popliteal trifurcations with 3 patent distal runoff vessels to the foot and ankle. ABDOMEN/PELVIS: LOWER CHEST: No significant pulmonary abnormalities. No effusion. LIVER: Normal size. No identified cystic or solid masses. No cysts. GALLBLADDER: Surgically absent with clips in place. BILE DUCTS: No intrahepatic or extrahepatic ductal dilatation. SPLEEN: Normal size. No focal lesions. PANCREAS: No identified cystic or solid masses. No significant calcifications. No adjacent inflammation or peripancreatic fluid collections. Pancreatic duct not dilated. ADRENALS: Normal. KIDNEYS/URINARY TRACT: No identified cystic or solid masses. No cysts. No stones. No hydronephrosis or hydroureter. Symmetric enhancement. Normal bladder. GI: No dilated bowel loops. No obvious wall thickening. Normal appendix. No significant diverticular disease. PERITONEUM: No ascites or free air. RETROPERITONEUM: No mass or adenopathy. REPRODUCTIVE: No significant abnormality. MUSCULOSKELETAL: No acute findings. OTHER: No other abnormality. IMPRESSION: Abdominal aorta demonstrates a patent endovascular bifurcated stent graft with mild intimal hyperplasia proximally. The aneurysmal sac measures up to 7.35 cm, previously 6.96 cm. No definite evidence of endoleak though this exam is not tailored to optimize evaluation of the stent graft device. Right leg demonstrates heavily calcified plaque obscuring detail of the common femoral artery with likely underlying severe stenosis. Additional high-grade stenosis of the superficial femoral artery in the adductor canal region with additional high-grade stenosis of the popliteal artery above the patella. Three-vessel distal runoff. Left leg demonstrates heavily calcified plaque obscuring detail of the common femoral artery with possible segmental occlusion. The left superficial femoral artery is patent possibly from collateralization. The left popliteal artery demonstrates heavily calcified plaque suggesting severe stenosis above the patella. Three-vessel distal runoff. THIS IS AN ELECTRONICALLY VERIFIED FINAL REPORT 12/20/2024 12:47 PM - Electronically signed by Johnathon DUKE T: Report ID: [id number] Reading Location: [id number] Procedure Note Johnathon Soto MD - 12/20/2024 EXAM DESCRIPTION: CTA ABDOMINAL AORTA AND BILATERAL ILIOFEMORAL RUNOFF REASON FOR STUDY: PAD Pt states pain to both lower limbs, especially left calf. Hx of infrarenal aortic repair. Some difficulty walking. TECHNIQUE: CTA of the abdominal aorta with bilateral lower extremityrunoff was performed without and with intravenous contrast using helicalscanning technique. Precontrast and arterial images were obtained of the lower extremities. Images reviewed with soft tissue and bone windows. Reconstructed coronal and sagittal MPR images reviewed. All images storedon PACS. 3D MIP images rendered on scanning unit and reviewed at time of interpretation. Automated exposure control was used as a doseoptimization technique for this examination. CONTRAST TYPE/DOSE: 100mL of IOVERSOL 350 MG IODINE/ML INTRAVENOUSSYRINGE injected via intravenous COMPARISON: 08/09/2024 FINDINGS: VASCULATURE: NON-CONTRASTED IMAGING: Diffuse heavy atherosclerotic calcified plaque. ABDOMINAL AORTA: Suprarenal abdominal aorta is patent without stenosis or aneurysmalsegment. Infrarenal segment demonstrates a patent endovascular bifurcated stentgraft. Mild intimal hyperplasia proximally. Bilateral common iliac limbs arepatent without stenosis. The aneurysmal sac demonstrates maximum dimension of7.35 x 7.0 cm, previously 6.96 x 6.59 cm using a similar technique. Subtle induration of the adjacent retroperitoneal soft tissues along the posterolateral left and inferior and anterior margins at the bifurcation persist and are unchanged. No surrounding fluid collection. Of note, this exam is not tailored to optimize evaluation of the stentgraft device. That being said, no unusual enhancement of the aortic lumen to suggest a prominent endoleak. However, no delayed images are availablefor standard evaluation. MESENTERIC/RENAL: Celiac axis and superior mesenteric arteries arepatent from their origins. Bilateral renal arteries are patent with a small accessory right renal artery also patent. Inferior mesenteric artery is patent distally. PELVIC VASCULATURE: Common/external iliac arteries: Right common iliac artery stent is patent and the bifurcation is patent. Right internal and external iliac arteries are patent. The left common femoral artery stent is patent, the iliac bifurcation is patent with patent internal iliac artery. The left external iliac arteryis patent. RIGHT LOWER EXTREMITY VASCULATURE: The right common femoral artery is heavily calcified and obscures detailwith an underlying severe stenosis suspected and similar to previous. Theright common femoral bifurcates with patent profunda femoral artery. The right superficial femoral artery is patent with heavy calcification in theadductor canal region with likely underlying high-grade stenosis. Continuous flowto the popliteal with a additional high-grade stenosis identified above the patella level. The distal popliteal is patent and trifurcations with 3patent distal runoff vessels. LEFT LOWER EXTREMITY VASCULATURE: The left common femoral artery demonstrates heavily calcified plaqueobscuring detail with possible segmental occlusion. The left profunda femoralartery is patent possibly from collateralization. The left superficial femoralartery is patent possibly from collateralization. The left popliteal above thelevel of the patella demonstrates heavily calcified plaque suggesting likelysevere stenosis. The distal popliteal is obscured by metallic artifact from left knee prosthesis. The distal popliteal trifurcations with 3 patent distal runoff vessels to the foot and ankle. ABDOMEN/PELVIS: LOWER CHEST: No significant pulmonary abnormalities. No effusion. LIVER: Normal size. No identified cystic or solid masses. No cysts. GALLBLADDER: Surgically absent with clips in place. BILE DUCTS: No intrahepatic or extrahepatic ductal dilatation. SPLEEN: Normal size. No focal lesions. PANCREAS: No identified cystic or solid masses. No significant calcifications. No adjacent inflammation or peripancreatic fluidcollections. Pancreatic duct not dilated. ADRENALS: Normal. KIDNEYS/URINARY TRACT: No identified cystic or solid masses. No cysts.No stones. No hydronephrosis or hydroureter. Symmetric enhancement. Normal bladder. GI: No dilated bowel loops. No obvious wall thickening. Normalappendix. No significant diverticular disease. PERITONEUM: No ascites or free air. RETROPERITONEUM: No mass or adenopathy. REPRODUCTIVE: No significant abnormality. MUSCULOSKELETAL: No acute findings. OTHER: No other abnormality. IMPRESSION: Abdominal aorta demonstrates a patent endovascular bifurcated stent graft with mild intimal hyperplasia proximally. The aneurysmal sac measures up to 7.35 cm, previously 6.96 cm. No definite evidence of endoleak though this exam is not tailored tooptimize evaluation of the stent graft device. Right leg demonstrates heavily calcified plaque obscuring detail of the common femoral artery with likely underlying severe stenosis. Additional high-grade stenosis of the superficial femoral artery in the adductorcanal region with additional high-grade stenosis of the popliteal artery abovethe patella. Three-vessel distal runoff. Left leg demonstrates heavily calcified plaque obscuring detail of thecommon femoral artery with possible segmental occlusion. The left superficialfemoral artery is patent possibly from collateralization. The left poplitealartery demonstrates heavily calcified plaque suggesting severe stenosis above the patella. Three-vessel distal runoff. THIS IS AN ELECTRONICALLY VERIFIED FINAL REPORT 12/20/2024 12:47 PM - Electronically signed by Johnathon DUKE T: Report ID: [id number] Reading Location: [place] [address] Nieves Delacruz MD IM CT PROCEDURES Final Result * US Arterial Doppler Lower Extremity Bilateral (12/17/2024 1:48 PM CDT) Anatomical Region Laterality Modality Vascular Bilateral Ultrasound 12/17/2024 12:5 2 PM CDT Narrative 12/17/2024 4:23 PM CDT Lower Extremity Arterial Doppler Report Patient Name: VALERY ELIZONDO J : 1950 Study Date: 12/17/2024 12:52:00 PM Gender: M [employer] Producer: Radha Pike Ref Provider: NIEVES DELACRUZ Quality: Adequate Order Provider: NIEVES DELACRUZ PROCEDURES: Arterial Report: Bilateral lower extremity arterial Doppler exam at rest. INDICATIONS: I70.213 Atherosclerosis of [place] arteries of extremities with intermittent claudication, bilateral legs. HISTORY: Former smoker, DM, HTN, HLD Reports bilateral calf cramping when walking about 300 feet. COMPARISONS: The previous exam was completed on 09/22/2012. Compared to prior Evidence of increased disease. MEASUREMENTS: Right Value Left Value Rt Brachial Pressure 158 mmHg Lt Brachial Pressure 161 mmHg Rt WAREHOUSE DRIVER Pressure 87 mmHg Lt WAREHOUSE DRIVER Pressure 118 mmHg Rt DPA Pressure 88 mmHg Lt DPA Pressure 113 mmHg Rt 1st Digit Pressure 65 mmHg Lt 1st Digit Pressure 74 mmHg Rt PT NEETA Resting 0.54 Lt PT NEETA Resting 0.73 Rt DP NEETA Resting 0.55 Lt DP NEETA Resting 0.7 Rt Digit 1/Arm Index 0.4 Lt Digit 1/Arm Index 0.46 - FINDINGS: Right Common Femoral Artery Analysis: The common femoral artery waveform is biphasic. Right Popliteal Artery Analysis: The popliteal waveform is biphasic. Right Posterior Tibial Artery Analysis: The posterior tibial waveform is biphasic. Right Dorsalis Pedis Artery Analysis: The dorsalis pedis waveform is biphasic. Left Common Femoral Artery Analysis: The common femoral artery waveform is biphasic. Left Popliteal Artery Analysis: The popliteal waveform is biphasic. Left Posterior Tibial Artery Analysis: The posterior tibial waveform is biphasic. Left Dorsalis Pedis Artery Analysis: The dorsalis pedis waveform is biphasic. CONCLUSIONS: 1. Ankle-brachial index of 0.5-0.8 is consistent with claudication disease and moderate occlusive arterial disease in the bilateral lower extremities. 2. There is evidence of right leg arterial insufficiency at the level of aorta- iliac, common femoral (inflow) arteries. 3. There is evidence of left leg arterial insufficiency at the level of aorta- iliac, common femoral (inflow) arteries. ATTESTATION: I have reviewed and interpreted the pertinent images and measurements of this study. I attest to the conclusions in the final report that is provided above. Electronically Signed By: Neil Delacruz MD 12/17/2024 4:16:07 PM CDT Procedure Note Neil Delacruz MD - 12/17/2024 Lower Extremity Arterial Doppler Report Patient Name: VALERY ELIZONDO J : 1950 Study Date: 12/17/2024 12:52:00 PM Gender: M [employer] Producer: Radha Pike Ref Provider: NIEVES DELACRUZ Quality: Adequate Order Provider: NIEVES DELACRUZ PROCEDURES: Arterial Report: Bilateral lower extremity arterial Doppler exam at rest. INDICATIONS: I70.213 Atherosclerosis of [place] arteries of extremities withintermittent claudication, bilateral legs. HISTORY: Former smoker, DM, HTN, HLD Reports bilateral calf cramping when walking about 300 feet. COMPARISONS: The previous exam was completed on 09/22/2012. Compared to prior Evidence of increased disease. MEASUREMENTS: Right Value Left Value Rt Brachial Pressure 158 mmHg Lt Brachial Pressure 161 mmHg Rt WAREHOUSE DRIVER Pressure 87 mmHg Lt WAREHOUSE DRIVER Pressure 118 mmHg Rt DPA Pressure 88 mmHg Lt DPA Pressure 113 mmHg Rt 1st Digit Pressure 65 mmHg Lt 1st Digit Pressure 74 mmHg Rt PT NEETA Resting 0.54 Lt PT NEETA Resting 0.73 Rt DP NEETA Resting 0.55 Lt DP NEETA Resting 0.7 Rt Digit 1/Arm Index 0.4 Lt Digit 1/Arm Index 0.46 - FINDINGS: Right Common Femoral Artery Analysis: The common femoral artery waveform is biphasic. Right Popliteal Artery Analysis: The popliteal waveform is biphasic. Right Posterior Tibial Artery Analysis: The posterior tibial waveform is biphasic. Right Dorsalis Pedis Artery Analysis: The dorsalis pedis waveform is biphasic. Left Common Femoral Artery Analysis: The common femoral artery waveform is biphasic. Left Popliteal Artery Analysis: The popliteal waveform is biphasic. Left Posterior Tibial Artery Analysis: The posterior tibial waveform is biphasic. Left Dorsalis Pedis Artery Analysis: The dorsalis pedis waveform is biphasic. CONCLUSIONS: 1. Ankle-brachial index of 0.5-0.8 is consistent with claudication diseaseand moderate occlusive arterial disease in the bilateral lower extremities. 2. There is evidence of right leg arterial insufficiency at the level ofaorta- iliac, common femoral (inflow) arteries. 3. There is evidence of left leg arterial insufficiency at the level ofaorta- iliac, common femoral (inflow) arteries. ATTESTATION: I have reviewed and interpreted the pertinent images and measurements ofthis study. I attest to the conclusions in the final report that is provided above. Electronically Signed By: Neil Delacruz MD 12/17/2024 4:16:07 PM CDT Nieves Delacruz MD IM US PROCEDURES Final Result * (ABNORMAL) Lipid panel (02/03/2024 9:41 AM CDT) SCRIBED Cholesterol, Total 159 0 - 200 EXTERNAL LAB SCRIBED HDL 54 40 - 100 EXTERNAL LAB SCRIBED LDL 48 0 - 100 EXTERNAL LAB SCRIBED Triglycerides 285(A) 0 - 150 EXTERNAL LAB Blood 02/03/2024 9:41 AM CDT Historical Provider LAB BLOOD ORDERABLES Clara freed Result EXTERNAL LAB from Last 3 Months or Most Recently Relevant to Health Maintenance Insurance MEDICARE AET SENIOR SUPPLEMENT MEDICARE AETNA MEDICARE AETNA SENIOR SUPPLEMENT Care Teams Ocular Pathologist Relationship Specialty Start Date End Date Stephen Garcia DO [address] [place] [id number] PCP - General Family Medicine 03/28/22
--- OUTSIDE RECORDS SUMMARY | 2025-02-10 10:30 | XMS_ITS | Encounter Summary ---
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* Encounter Details Date Type Department Care Team (Late st Contact Info) Description 02/09/2025 8:45 AM CDT Office Visit [facility] Medical Group Vascular at [address] [place] [phone] Eros Delacruz MD [address] [place] [address] [address] Arrived Social History Tobacco Use Types Packs/Day Years [...] on file Legal Sex Male 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 Gender Identity Male 04/10/2020 12:23 PM CDT Sexual Orientation Straight 04/10/2020 12 :23 PM CDT documented as of this encounter Last Filed Vital Signs Vital Sign Reading Time Taken Comments Blood Pressure 133/66 02/09/2025 8:32 AM CDT Pulse 58 02/09/2025 8:32 AM CDT Temperature - - Respiratory Rate - - Oxygen Saturation 97% 02/09/2025 8:32 AM CDT Inhaled Oxygen Concentration - - Weight 84.8 kg (187 lb) 02/09/2025 8:32 AM CDT Height 182.9 cm (6') 02/09/2025 8:32 AM CDT Body Mass Index 25.36 02/09/2025 8:32 AM CDT documented in this encounter Plan of Treatment Not on file documented as of this encounter Visit Diagnoses Not on filedocumented in this encounter Care Teams Chipper Relationship Specialty Start Date End Date Stephen Garcia DO [address] [place] [id number] PCP - General Family Medicine 03/28/22 documented as of this encounter
--- OUTSIDE RECORDS SUMMARY | 2025-02-10 10:30 | XMS_ITS | Encounter Summary ---
Author Organization [facility] Address [address] [place] [address] Care Team Providers Care Guard Driver Name Role Phone Neil Field MD Primary Care Provider + Encounter Details Date Type Department Care Team (Late st Contact Info) Description 10/21/2023 Lab Requisition [facility] - DermPath Lab [address] [place] [phone] Jim Oliva MD [address] [place] [address] Social History Tobacco Use Types Packs/Day Years Used Date Smoking Tobacco: Never Assessed Sex and Gender Information Value Date Recorded Sex Assigned at Not on file Legal Sex Male 12:43 PM CDT Gender Identity Not on file Sexual Orientation Not on file documented as of this encounter Plan of Treatment Not on file documented as of this encounter Procedures Procedure Name Priority Date/Time Associated Diagnosis Comments DERMATOPATHOLOGY Routine 10/21/2023 3:33 AM INSOLE STIFFENER documented in this encounter Results * DERMATOPATHOLOGY (10/21/2023 3:33 AM INSOLE STIFFENER) Case Report Dermatopathology Report Case: [id number] Authorizing Provider: Jim Oliva MD Collected: 10/21/2023 03:33 AM Ordering Location: [facility] DermPath Lab Received: 10/21/2023 03:37 PM Pathologist: Luisa Cristina MD Specimen: Skin, left lat neck post 2:58 PM [facility] DERMATOPATHOLOGY LABORATORY Final Diagnosis Specimen A. SKIN, left lat neck post: BASAL CELL CARCINOMA, INFILTRATIVE PATTERN (C44.41) DERMAL SCAR (L90.5) 4 2:58 PM [facility] DERMATOPATHOLOGY LABORATORY at [address] INSOLE STIFFENER Clinical History R/O BCC 4 2:58 PM [facility] DERMATOPATHOLOGY LABORATORY Gross Description Specimen A: Received is one formalin filled container labeled with the patient's name and designated left lat neck post. The specimen consists of a(3) pieces shave biopsy measuring 7x3x1, 5x3x1, 3x3x1 mm. Jar 0. 4 2:58 PM [facility] DERMATOPATHOLOGY LABORATORY Microscopic Description Specimen A. [...] to the skin surface. 4 2:58 PM [facility] DERMATOPATHOLOGY LABORATORY Disclaimer An external and internal positive and negative controls are appropriate for the histochemical, immunohistochemical and immunofluorescence stain(s) in this case (if any), except where stated explicitly. The performance characteristics of the stain(s) cited in this report were developed and its performance characteristic determined by the Dermatopathology Laboratory at [facility], directed by Dr. Gabe Cristina. These tests need not be, and therefore are not, approved by the [place] Food and Drug Administration. The tests are used for clinical purposes. Billing Codes Specimen Charges Stain Charges 03183 1 4 2:58 PM [facility] DERMATOPATHOLOGY LABORATORY Embedded Images 4 2:58 PM [facility] DERMATOPATHOLOGY LABORATORY Pathology/Cytolo gy TISSUE SPECIMEN FROM SKIN / Unknown 10/21/2023 3:33 AM INSOLE STIFFENER 10/21/2023 3:37 PM INSOLE STIFFENER us Jim Oliva MD LAB - PATHOLOGY/CYTOLOGY ORDERAB LES Final Result DERMATOPATHOLOGY LABORATORY [facility] - Department of Dermatology [facility] Medicine [address] [facility]rd [address] [phone] documented in this encounter Visit Diagnoses Not on filedocumented in this encounter Care Teams Guard Driver Relationship Specialty Start Date End Date Neil Field MD [address] [address] PCP - General 03/03/18 documented as of this encounter
--- OUTSIDE RECORDS SUMMARY | 2025-02-10 10:30 | XMS_ITS | Encounter Summary ---
Author Organization [facility] Address [address] [facility] [place] [address] Care Team Providers Care State Comptroller Name Role Phone Neil Field MD Primary Care Provider + Encounter Details Date Type Department Care Team (Late st Contact Info) Description 09/17/2023 Lab Requisition [facility] - DermPath Lab [address] [place] [phone] Jim Oliva MD [address] [place] [address] Social History Tobacco Use Types Packs/Day Years [...] Diagnosis Comments DERMATOPATHOLOGY Routine 09/17/2023 3:33 AM CLERICAL SUPPORT documented in this encounter Results * DERMATOPATHOLOGY (09/17/2023 3:33 AM CLERICAL SUPPORT) Case Report Dermatopathology Report Case: [id number] Authorizing Provider: Jim Oliva MD Collected: 09/17/2023 03:33 AM Ordering Location: [facility] DermPath Lab Received: 09/18/2023 06:08 AM Pathologist: Jasmin Barclay MD Specimen: Skin, left lat neck sup 1:42 PM [facility] DERMATOPATHOLOGY LABORATORY Final Diagnosis Specimen A. SKIN, left lat neck sup: BASAL CELL CARCINOMA, NODULAR TYPE (C44.41) DERMAL SCAR (L90.5) 4 1:42 PM [facility] at [address] CLERICAL SUPPORT Clinical History BCC BX site. Prior Biopsy 4 1:42 PM [facility]MAT[facility] Gross Description Specimen A: Received is one formalin filled container labeled with the patient's name and designated left lat neck sup. The specimen consists of a(2) pieces shave biopsy measuring 8x6x1, 7x5x1 mm. Jar 0. 4 1:42 PM [facility] Microscopic Description Specimen A. SKIN, left lat neck sup: Within the dermis there are aggregates of basaloid cells with a high nuclear to cytoplasmic ratio and peripheral palisading. There are fibroblasts and collagen bundles oriented parallel to the skin surface with elongated blood vessels, some of which are oriented perpendicular to the skin surface. 4 1:42 PM [facility] Disclaimer An external and internal positive and negative controls are appropriate for the histochemical, immunohistochemical and immunofluorescence stain(s) in this case (if any), except where stated explicitly. The performance characteristics of the stain(s) cited in this report were developed and its performance characteristic determined by the Dermatopathology Laboratory at [facility], directed by Dr. Gabe Cristina. These tests need not be, and therefore are not, approved by the [place] Food and Drug Administration. The tests are used for clinical purposes. Billing Codes Specimen Charges Stain Charges 28701 1 4 1:42 PM [facility] Embedded Images 4 1:42 PM [facility] Pathology/Cytolo gy TISSUE SPECIMEN FROM SKIN / Unknown 09/17/2023 3:33 AM CLERICAL SUPPORT 09/18/2023 6:08 AM CLERICAL SUPPORT us Jim Oliva MD LAB - PATHOLOGY/CYTOLOGY ORDERAB LES Final Result DERMATOPATHOLOGY LABORATORY [facility] - Department of Dermatology [address] [phone] documented in this encounter Visit Diagnoses Not on filedocumented in this encounter Care Teams State Comptroller Relationship Specialty Start Date End Date Neil Field MD [address] [address] PCP - General 03/03/18 documented as of this encounter
--- OUTSIDE RECORDS SUMMARY | 2025-02-10 10:30 | XMS_ITS | Clinical Summary ---
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 Name Role Phone Jose Stephenjory Croft Primary Care Provide r Allergies Active Allergy Reactions Criticality Noted Date Comments Fenofibrate High Ragcxun-Jxz-Vel Reductase Inhibitors High Icosapent Ethyl Muscle pain [...] Problem Noted Date Diagnosed Date Atherosclerosis of snoqualmie ar ky of both lower extremities with [...] a associated with type 2 diabetes mellitus ([facility]) 10/18/2015 Overview (12/07/2016): DM type [...] Date Type Department Care Team Description 02/09/2025 8:45 AM CDT Office Visit [facility] Vascular at [address] [place] [address] Nieves Delacruz MD Arrived 02/09/2025 Telephone [facility] Vascular and Vein Surgery [address] [facility] [address] [place] [address] Lissette Patel RN 02/03/2025 7:30 AM CDT - 02/03/2025 8:30 AM CDT Surgery [facility] Cardiac Clinical Nurse Occupational Medicine [address] [place] [address] Nieves Delacruz MD BILATERAL ANGIOGRAM WITH POSSIBLE INTERVENTION WITH LEFT GROIN OR BRACHIAL ACCESS 02/03/2025 5:46 AM CDT - 02/03/2025 11:05 AM CDT Hospital Encounter [facility] Cardiac Clinical Nurse Occupational Medicine [address] [place] [address] Nieves Delacruz MD 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; Other disorder of circulatory system Discharge Disposition: Discharge to home or self care 12/30/2024 Documentation [facility] Vascular and Vein Surgery [address] [place] [address] [place] [phone] Camilla Pham MA 12/30/2024 Telephone [facility] Vascular and Vein Surgery [address] [place] [phone] Camilla Pham MA 12/29/2024 9:30 AM CDT Office Visit [facility] V[facility] at [address] [place] [address] Nieves Delacruz MD PAD (peripheral artery disease) (Primary Dx); Infrarenal abdominal aortic aneurysm (AAA) without rupture; Hypertension associated with diabetes (HCC) 12/17/2024 1:59 PM CDT - 12/17/2024 11:59 PM CDT Hospital Encounter [facility] CT [address] [place] [address] Abdominal aortic aneurysm (AAA) without rupture, unspecified part Discharge Disposition: Discharge to home or self care 12/17/2024 12:45 PM CDT - 12/17/2024 11:59 PM CDT Hospital Encounter [facility] Cardiac Testing [address] [place] [address] 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 Discharge Disposition: Discharge to home or self care 12/01/2024 9:15 AM CDT Office Visit [facility] Vascular at [address] [place] [address] Lydia Hamilton NP Hypertension associated with diabetes (HCC) (Primary Dx); Claudication of both lower extremities; Infrarenal abdominal aortic aneurysm (AAA) without rupture; Mixed diabetic hyperlipidemia associated with type 2 diabetes mellitus (CMS/HCC) (HCC); Type 2 diabetes mellitus with hyperglycemia, without long-term current use of insulin (HCC); PAD (peripheral artery disease) 12/01/2024 Orders Only [facility] Vascular at [address] [place] [address] Nieves Delacruz MD PAD (peripheral artery disease) (Primary Dx) 12/01/2024 Orders Only [facility] Vascular at [address] [place] [address] Nieves Delacruz MD Abdominal aortic aneurysm (AAA) without rupture, unspecified part (Primary Dx); 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 11/11/2024 Telephone [facility] Cardiology [address] [place] [address] Alex Daniel MD repatha from Last 3 Months Surgical History Surgery Date Site/Laterality Comments OTHER SURGICAL HISTORY 2012 Aneurysm, abdominal aortic: abdominal aneurysm repair SINUS SURGERY sinus surgery CHOLECYSTECTOMY ABDOMINAL SURGERY JOINT REPLACEMENT Left knee CARDIAC CATHETERIZATION 02/03/2025 Bilateral Procedure: BILATERAL ANGIOGRAM WITH POSSIBLE INTERVENTION WITH LEFT GROIN OR BRACHIAL ACCESS; Surgeon: Nieves Delacruz MD; Location: [facility] 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 Gender Identity Male 04/10/2020 12:23 PM CDT [...] 02/09/2025 8:32 AM CDT Plan of Treatment Health Maintenance Due Date Last Done Comments Albumin Creatinine Ratio, Urine 1950 Colon Cancer Screening-Colonoscopy 1950 Depression Screening 1950 Hemoglobin A1C 1950 Hepatitis C Screening 1950 Dilated Eye Exam 1950 Foot Exam 1950 DTaP/Tdap/Td Vaccine (1 - Tdap) 1963 Hepatitis B Screening 1970 Well Visit 65+ 2017 Covid-19 Vaccine (5 - 2023-2 5 season) 2024 12/17/2021, 06/25/2021, 11/11/2020, Additional history exists Lipid Panel 02/02/2025 02/03/2024, 12/2023, 10/21/2023, Additional history exists Fall Risk Assessment 02/03/2026 02/03/2025 eGFR 02/03/2026 02/03/2025 Pneumococcal vaccine 65+ Completed 06/19/2020, 04/2018 Zoster Vaccine Completed 01/23/2022, 11/22/2021 Influenza Vaccine Completed 06/27/2024, , 06/01/2017 Abdominal Aortic Aneurysm (A AA) Screen Completed 12/29/2024, 12/17/2024, 12/17/2024, Additional history exists Medical Devices Implanted Type Area Cable Hooker Device Identifier Shelf Expiration Date Model / Serial / Lot [employer] Vascular System Closure Repair Femoral Artery Suture Mediated Perclose Prostyle 99927-10 - [id number] Implanted:Qty: 1 on 02/03/2025 by Nieves Delacruz MD at [facility] [employer] 11/29/2026 [id number] / / Procedures Procedure Name Priority Date/Time Associated Diagnosis Comments PERIPHERAL RUN OFF CATH Routine 02/03/2025 7:52 AM CDT 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 B ABO / RH CONFIRMATION TESTING STAT 02/03/2025 6:41 AM CDT EGFR STAT 02/03/2025 6:26 AM CDT 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 DIFFERENTIAL AUTO STAT 02/03/2025 6:2 6 AM CDT 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 ANTIBODY SCREEN STAT 02/03/2025 6:26 AM CDT 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 ABO/RH STAT 02/03/2025 6:26 AM CDT 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 TYPE AND SCREEN STAT 02/03/2025 6:26 AM CDT 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 PROTIME-INR STAT 02/03/2025 6:26 AM CDT 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 COMPREHENSIVE METABOLIC PANEL STAT 02/03/2025 6:26 AM CDT 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 CBC WITH AUTO DIFFERENTIAL STAT 02/03/2025 6:26 AM CDT 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 APTT STAT 02/03/2025 6:26 AM CDT 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 Other disorder of circulatory system CTA ABDOMINAL AORTA AND BILATERAL ILIOFEMORAL RUNOFF Schedule Routine, Read Routine (OP Routine) 12/17/2024 2:55 PM CDT Abdominal aortic aneurysm (AAA) without rupture, unspecified part US ARTERIAL DOPPLER LOWER EXTREMITY BILATERAL Schedule Routine, Read Routine (OP Routine) 12/17/2024 1:48 PM CDT 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 us Nieves Delacruz MD CV CARDIAC CATH PROCEDURES Final Result * ABO / Rh Confirmation Testing (02/03/2025 6:41 AM CDT) ABO/Rh Confirmation A Positive [facility]HB Blood 02/03/2025 6:41 AM CDT 02/03/2025 6:44 AM CDT us Nieves Delacruz MD LAB BLOOD ORDERABLES Final Resul t [facility] [address] [facility] Department [place] [address] MHB * eGFR (02/03/2025 6:26 AM CDT) [...] of Race in Diagnosing Kidney Disease, JASN 202). The CKD-EPI equation should not be used for patients with unstable renal function and has not been validated in children and those over 70. Current interpretive data was last reviewed 2021. Blood 02/03/2025 6:26 AM CDT 02/03/2025 6:31 AM CDT us Nieves Delacruz MD LAB BLOOD ORDERABLES Final Resul t [facility] [address] [facility] Department [place] [address] * (ABNORMAL) Differential, auto (02/03/2025 6:26 AM CDT) Neutrophil abs 3.15 1.50 - 6.50 K/cumm Imm gran abs 0.02 0.00 - 0.10 K/cumm [facility] Lymphocyte abs 0.55(L) 0.80 - 3.30 K/cumm [facility] Monocyte abs 0.64 0.20 - 0.80 K/cumm [facility] Eosinophil abs 0.20 0.00 - 0.50 K/cumm [facility] Basophil abs 0.06 0.00 - 0.10 K/cumm [facility] Neutrophil pct 68.2 % [facility] Comment: Interpretive Data Percent cell count reference ranges are not reported, since discordance with absolute values may lead to misinterpretation of CBC data. Current Interpretive Data was last revised on 2017. Imm gran pct 0.4 % [facility] Comment: Interpretive Data Percent cell count reference ranges are not reported, since discordance with absolute values may lead to misinterpretation of CBC data. Current Interpretive Data was last revised on 2017. Lymphocyte pct 11.9 % [facility] Comment: Interpretive Data Percent cell count reference ranges are not reported, since discordance with absolute values may lead to misinterpretation of CBC data. Current Interpretive Data was last revised on 2017. Monocyte pct 13.9 % [facility] Comment: Interpretive Data Percent cell count reference ranges are not reported, since discordance with absolute values may lead to misinterpretation of CBC data. Current Interpretive Data was last revised on 2017. Eosinophil pct 4.3 % [facility] Comment: Interpretive Data Percent cell count reference ranges are not reported, since discordance with absolute values may lead to misinterpretation of CBC data. Current Interpretive Data was last revised on 2017. Basophil pct 1.3 % [facility] Comment: Interpretive Data Percent cell count reference ranges are not reported, since discordance with absolute values may lead to misinterpretation of CBC data. Current Interpretive Data was last revised on 2017. Blood 02/03/2025 6:26 AM CDT 02/03/2025 6:31 AM CDT Nieves Delacruz MD LAB BLOOD ORDERABLES Final Resul t Performing Organization Address [facility] [[email or web address]] de Phone Number [address] [place] [address] * (ABNORMAL) CBC with auto differential (02/03/2025 6:26 AM CDT) WBC 4.62 3.80 - 9.90 K/cumm Hgb 13.2 13.0 - 17.5 g/dL [facility] Hct 41.1 38.9 - 50.3 % [facility] Plt 260 150 - 400 K/cumm [facility] MPV 9.5 9.1 - 12.3 fL [facility] RBC 4.48 4.30 - 5.80 M/cumm [facility] MCV 91.7 81.3 - 96.4 fL [facility] MCH 29.5 27.1 - 33.3 pg [facility] MCHC 32.1(L) 32.3 - 35.7 g/dL [facility] RDW CV 13.3 11.1 - 14.9 % [facility] RDW SD 45.1 35.7 - 48.1 fL [facility] NRBC abs 0.00 0.00 - 0.01 K/cumm [facility] Blood 02/03/2025 6:26 AM CDT 02/03/2025 6:31 AM CDT Narrative [facility] - 02/03/2025 6:36 AM CDT If most recent labs were drawn prior to 4 AM, draw only prior to initiating procedure. Nieves Delacruz MD LAB BLOOD ORDERABLES Final Resul t Performing Organization Address [facility] Co de Phone Number [facility] [address] [facility] [place] [address] * ABO/Rh (02/03/2025 6:26 AM CDT) ABO/Rh A Positive Blood 02/03/2025 6:26 AM CDT 02/03/2025 6:31 AM CDT Narrative [facility] - 02/03/2025 7:06 AM CDT Has the patient had Daratumumab or Isatuximab in the past 6 months?->Unknown Nieves Delacruz MD LAB BLOOD BANK TEST ORDERABLES F inal Result Performing Organization Address [facility] Co de Phone Number [address] [place] [address] * aPTT (02/03/2025 6:26 AM CDT) Pathologist [facility] aPTT 29 22 - 37 sec Comment: Interpretive data aPTT test has not been evaluated for monitoring heparin therapy. The anti-Xa is the preferred test. Current interpretive data was last revised on 2019. Blood 02/03/2025 6:26 AM CDT 02/03/2025 6:31 AM CDT Nieves Delacruz MD LAB BLOOD ORDERABLES Final Resul t Performing Organization Address [facility] [[email or web address]] de Phone Number [address] [address] * Protime-INR (02/03/2025 6:26 AM CDT) PT 13.2 12.0 - 14.6 sec INR [...] ORDERABLES Final Resul t Performing Organization Address [facility] Co de Phone Number [address] [address] * Antibody screen (02/03/2025 6:26 AM CDT) Tay, indirect, Gel Interpretation Negative ABSC Blood 02/03/2025 6:26 AM CDT 02/03/2025 6:31 AM CDT Narrative [facility] - 02/03/2025 7:06 AM CDT Has the patient had Daratumumab or Isatuximab in the past 6 months?->Unknown Nieves Delacruz MD LAB BLOOD BANK TEST ORDERABLES F inal Result Performing Organization Address [facility] [[email or web address]] de Phone Number [address] [address] * Comprehensive metabolic panel (02/03/2025 6:26 AM CDT) [facility] Sodium 138 135 - 145 mmol/L Potassium, pl 4.4 3.3 - 4.9 mmol/L [facility] Chloride 102 97 - 110 mmol/L [facility] CO2 24 22 - 32 mmol/L [facility] Anion gap 12 2 - 15 mmol/L [facility] BUN 22 6 - 25 mg/dL [facility] Creatinine 1.08 0.80 - 1.30 mg/dL [facility] Glucose 174 70 - 199 mg/dL [facility] Comment: Interpretive Data Fasting glucose >/= 126 [...] 2022. Calcium 9.7 8.5 - 10.3 mg/dL [facility] Bilirubin, total 0.2 0.1 - 1.2 mg/dL [facility] Protein, pl 7.3 6.5 - 8.5 g/dL [facility] Albumin 4.3 3.5 - 5.0 g/dL [facility] Alk phos 77 40 - 130 Units/L [facility] ALT 18 7 - 55 Units/L [facility] AST 24 10 - 50 Units/L [facility] Blood 02/03/2025 6:26 AM CDT 02/03/2025 6:31 AM CDT us Nieves Delacruz MD LAB BLOOD ORDERABLES Final Resul t [facility] [address] [facility] Department [place] [address] * CTA Abdominal Aorta And Bilateral Iliofemoral [...] signed by Johnathon DUKE T: Report ID: [id number] Reading Location: [place] [address] Procedure Note Johnathon Soto MD - 12/20/2024 [...] signed by Johnathon DUKE T: Report ID: [id number] Reading Location: [id number] us Nieves Delacruz MD IMG CT PROCEDURES Final Result * US Arterial Doppler Lower Extremity Bilateral (12/17/2024 1:48 PM CDT) Anatomical Region Laterality Modality Vascular Bilateral Ultrasound 12/17/2024 12:5 2 PM CDT Narrative 12/17/2024 4:23 PM CDT Lower Extremity Arterial Doppler Report Patient Name: VALERY ELIZONDO J : 1950 Study Date: 12/17/2024 12:52:00 PM Gender: M 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 INDICATIONS: I70.213 Atherosclerosis of snoqualmie arteries of extremities with intermittent claudication, bilateral legs. HISTORY: Former smoker, DM, HTN, HLD Reports bilateral calf cramping when walking about 300 feet. COMPARISONS: The previous exam was completed on 09/22/2012. Compared to prior Evidence of increased disease. 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 INDICATIONS: I70.213 Atherosclerosis of snoqualmie arteries of extremities withintermittent claudication, bilateral legs. HISTORY: Former smoker, DM, HTN, HLD Reports bilateral calf cramping when walking about 300 feet. COMPARISONS: The previous exam was completed on 09/22/2012. Compared to prior Evidence of increased disease. MEASUREMENTS: Right Value Left Value Rt Brachial Pressure 158 mmHg Lt Brachial Pressure 161 mmHg Rt GENERAL OFFICE CLERK Pressure 87 mmHg Lt GENERAL OFFICE CLERK Pressure 118 mmHg Rt DPA Pressure 88 [...] Neil Delacruz MD 12/17/2024 4:16:07 PM CDT us Nieves Delacruz MD IMG US PROCEDURES Final Result * (ABNORMAL) Lipid panel (02/03/2024 9:41 AM CDT) SCRIBED Cholesterol, Total 159 0 - 200 EXTERNAL LAB SCRIBED HDL 54 40 - 100 EXTERNAL LAB SCRIBED LDL 48 0 - 100 EXTERNAL LAB SCRIBED Triglycerides 285(A) 0 - 150 EXTERNAL LAB Blood 02/03/2024 9:41 AM CDT us Historical Provider LAB BLOOD ORDERABLES Clara l Result EXTERNAL LAB from Last 3 Months or Most Recently Relevant to Health Maintenance Insurance MEDICARE A[employer]NA SENIOR SUPPLEMENT MEDICARE AETNA MEDICARE T SENIOR SUPPLEMENT Care Teams Coal 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
--- OUTSIDE RECORDS SUMMARY | 2025-02-10 10:30 | XMS_ITS | Encounter Summary ---
Author Organization [facility] Address [address] [facility] [place] [address] Care Team Providers Care Damascener Name Role Phone Neil Field MD Primary Care Provider + Encounter Details Date Type Department Care Team (Late st Contact Info) Description 09/03/2023 Lab Requisition [facility] - DermPath Lab [address] [place] [id number] Jim Oliva MD [address] [place] [address] Social History Tobacco Use Types Packs/Day Years [...] Diagnosis Comments DERMATOPATHOLOGY Routine 09/02/2023 3:33 AM ASSISTANT STORE DIRECTOR documented in this encounter Results * DERMATOPATHOLOGY (09/02/2023 3:33 AM ASSISTANT STORE DIRECTOR) Case Report Dermatopathology Report Case: [id number] Authorizing Provider: Jim Oliva MD Collected: 09/02/2023 03:33 AM Ordering Location: [facility] Physician [facility] - Received: 09/03/2023 06:49 AM DermPath Lab Pathologist: Jasmin Barclay MD Specimens: A) - Skin, left lat neck sup B) - Skin, left lat neck inf 9:21 AM CDT DERMATOPATHOLOGY LABORATORY Amended Report Clerical error in laboratory, change in site for specimen B to left lateral neck inf. 9:21 AM CDT DERMATOPATHOLOGY LABORATORY Final Diagnosis Specimen A. SKIN, left lat neck sup: BASAL CELL CARCINOMA, NODULAR TYPE (C44.41) Specimen B. SKIN, left lateral neck inf: BASAL CELL CARCINOMA, NODULAR TYPE (C44.41) 9:21 AM CDT DERMATOPATHOLOGY LABORATORY Amendment electronically signed by Jasmin Barclay MD on 11/10/2023 at 0921 CDT at 1600 ASSISTANT STORE DIRECTOR Clinical History A-B: AK vs. SCC 9:21 AM CDT DERMATOPATHOLOGY LABORATORY Gross Description Specimen A: Received [...] measuring 10x6x1 mm. Jar 0. 9:21 AM T DERMATOPATHOLOGY LABORATORY Microscopic Description Specimen A. SKIN, left lat neck sup: Within the dermis there are aggregates of basaloid cells with a high nuclear to cytoplasmic ratio and peripheral palisading. Specimen B. SKIN, left lateral neck inf: Within the dermis there are aggregates of basaloid cells with a high nuclear to cytoplasmic ratio and peripheral palisading. 9:21 AM CDT DERMATOPATHOLOGY LABORATORY Disclaimer An external and internal positive and negative controls are appropriate for the histochemical, immunohistochemical and immunofluorescence stain(s) in this case (if any), except where stated explicitly. The performance characteristics of the stain(s) cited in this report were developed and its performance characteristic determined by the Dermatopathology Laboratory at [facility], directed by Dr. Gabe Cristina. These tests need not be, and therefore are not, approved by the [place] Food and Drug Administration. The tests are used for clinical purposes. Billing Codes Specimen Charges Stain Charges 42110 01699 1 1 03/11/202 4 9:21 AM CDT DERMATOPATHOLOGY LABORATORY Embedded Images 4 9:21 AM CDT DERMATOPATHOLOGY LABORATORY Pathology/Cytology TISSUE SPECIMEN FROM SKIN / Unknown 09/02/2023 3:33 AM ASSISTANT STORE DIRECTOR 09/03/2023 6:49 AM ASSISTANT STORE DIRECTOR Miscellaneous samples (specimen) TISSUE SPECIMEN FROM SKIN / Unknown 09/02/2023 3:33 AM ASSISTANT STORE DIRECTOR 09/03/2023 6:49 AM ASSISTANT STORE DIRECTOR us Jim Oliva MD LAB - PATHOLOGY/CYTOLOGY ORDERAB LES Edited Result - Final DERMATOPATHOLOGY LABORATORY [facility] - Department of Dermatology [facility] [address] [place] [address], [address] [phone] documented in this encounter Visit Diagnoses Not on filedocumented in this encounter Care Teams Damascener Relationship Specialty Start Date End Date Neil Field MD [address] [address] PCP - General 03/03/18 documented as of this encounter
--- OUTSIDE RECORDS SUMMARY | 2025-02-10 10:30 | XMS_ITS | Clinical Summary ---
Author Organization [facility] Address [address] [place] [address] Care Team Providers Care Video Photographer Name Role Phone Neil Field MD Primary Care Provider + Source Comments [facility],non-owned Affiliates and Associated Physician Practices is amultiple site organization consisting of ambulatory clinics and hospital sitesin [place], [place], [place] and [place]. This disclosure is being madepursuant to the Care Everywhere program and may not contain all information available regarding this patient. Last updated 18.[facility] Social History Tobacco Use Types Packs/Day Years [...] VACCINE (1 of 2) 2002 COVID-19 VACCINE (1 - 2023-2 5 season) 2024 DEPRESSION SCREENING 09/01/2024 INFLUENZA VACCINE (Season Ended) 2025 Respiratory Syncytial Virus (RSV) Vaccine Pt: or [...] on patient's age to complete this topic Insurance MEDICARE AETNA MEDICARE AETNA Care Teams Video Photographer Relationship Specialty Start Date End Date Neil Field MD [address] [address] PCP - General 03/03/18
[2025-02-10 12:04] LABS: Total Protein Urine Random 272 mg/dL; Ur Ttl Prot Creatinine Ratio 3.35 mg/mg (0-0.20)
== END 2025-02-10 09:45 | disposition home or self-care (01) ==
PROVIDERS: PCP Student in an Organized Health Care Education/Training Program; Referring Provider Urology; Visit Provider Internal Medicine Nephrology
DX: C61 Malignant neoplasm of prostate (principal); E11.29 Type 2 diabetes mellitus with other diabetic kidney complication; R80.9 Proteinuria, unspecified
CPT/HCPCS: 36415; 80069; 82570; 84156